=== PATIENT | female | born 1970 | race Caucasian/White ===

== ENCOUNTER 2017-02-03 17:51 | Inpatient (IN) ==
[2017-02-03 19:11] LABS: Eosinophils # 0.1 K/mcL (0.0-0.6); Eosinophils % 6.3 %; Immature Platelets 4.2 % (1.1-6.1); Lymphocytes # 0.4 K/mcL (0.6-4.6); Lymphocytes % 35.1 %; Mean Corpuscular HGB Conc 31.5 g/dL (31.6-35.5); Mean Corpuscular Hemoglobin 38.7 pg (28.0-33.3); Mean Corpuscular Volume 122.6 fL (83.0-100.0); Mean Platelet Volume 10.4 fL (9.4-12.4); Monocytes # 0.2 K/mcL (0.0-1.3); Monocytes % 20.7 %; Neutrophils # 0.4 K/mcL (1.6-8.9); Platelet Count 185 K/mcL (140-400); Red Blood Count 1.06 M/mcL (3.82-4.97); Red Cell Distribution Width 20.7 % (11.5-14.5); Segmented Neutrophils % 37.9 %
[2017-02-03 19:23] LABS: Alanine Aminotransferase 11 Units/L (0-55); Albumin 3.3 g/dL (3.5-5.0); Albumin/Globulin Ratio 1.1 (1.1-2.2); Alkaline Phosphatase 89 Units/L (38-126); Aspartate Amino Transferase 13 Units/L (5-34); BUN/Creatinine Ratio 11 (6-26); Bilirubin,Direct 0.3 mg/dL (0.0-0.5); Bilirubin,Indirect 0.2 mg/dL (0.0-1.2); Bilirubin,Total 0.5 mg/dL (0.2-1.2); Blood Urea Nitrogen 6 mg/dL (7-20); Carbon Dioxide 20 mEq/L (19-29); Chloride 106 mEq/L (98-109); Glucose 115 mg/dL (70-99); Osmolality,Calculated 279 (280-300); Potassium 4.1 mEq/L (3.5-4.5); Sodium 135 mEq/L (136-145); Total Protein 6.3 g/dL (6.0-8.3); eGFR For African Americans > 60 (> 60); eGFR For Non-African Americans > 60 (> 60)
[2017-02-03 19:51] LABS: Hemoglobin 4.1 g/dL (11.5-15.4)
[2017-02-03 20:01] LABS: Lipase 1660 Units/L (8-78)
[2017-02-03 20:07] LABS: Anisocytosis 1+ (Not Present); Hypochromasia Present (Not Present); Platelet Estimate Normal (Normal); Stomatocytes 1+ (Not Present)
[2017-02-03] MEDS ORDERED: *HR* Morphine 2 MG/ML SYRINGE IVP ONE (20:37)
[2017-02-03] MEDS ORDERED: *HR* HYDROmorphone (PF) 1 MG/ML SYRINGE IVP ONE (20:38)
[2017-02-03] MEDS ORDERED: Ondansetron 4 MG/2 ML VIAL IVP ONE (20:39)
[2017-02-03] MEDS ORDERED: 0.9 % Sodium Chloride 1,000 ML IVC ONE ×3 (20:41→21:36)
[2017-02-03] MEDS ORDERED: 0.9 % Sodium Chloride 1,000 ML ONE (20:43)
--- NOTE | 2017-02-03 20:55 | Emergency Department Note ---
Disposition Clinical Impression: Anemia Qualifiers: Anemia type: folate deficiency Folate deficiency anemia type: unspecified folate deficiency Qualified Code(s): D52.9 - Folate deficiency anemia, unspecified Pancreatitis, acute Qualifiers: Pancreatitis type: unspecified pancreatitis type Acute pancreatitis complication: unspecified Qualified Code(s): K85.90 - Acute pancreatitis without necrosis or infection, unspecified Abdominal pain Qualifiers: Abdominal location: generalized Qualified Code(s): R10.84 - Generalized abdominal pain Disposition: Admitted As Inpatient Condition: Fair Time of Disposition: 23:36 Abdominal Pain HPI - General Chief Complaint: ED Abdominal Pain Stated Complaint: ABD Pain,Vomiting Time Seen by Provider: 02/03/17 20:08 Source: patient Nursing Notes Reviewed: Yes Vital Signs Reviewed: Yes - History of Present Illness HPI Narrative: The patient is a 46 y/o patient with no significant medical history who presents with epigastric pain. patient states that her epigastric pain started this past Thursday as a dull pain but yesterday night it became a constant and sharp pain that radiates all over her abdomen and straight to her back. She states that deep inspiration and leaning forward makes the pain worse. She admits nothing makes the pain better. She admits loss of appetite, nausea and 2 episodes of vomiting but denies any fevers. She states that she never had this pain before. She also admits some weakness that has been going on for approximately 2 months. She denies any headaches, vision changes, chest pain, shortness of breath, difficulty breathing, constipation, diarrhea, blood in his stool, blood in her urine, numbness and tingling, or any bleeding. Pain Scale: 10 - Related Data Home Medications Medication Instructions Recorded Confirmed Furosemide [Lasix] 20 mg PO 2XW 02/03/17 02/03/17 Gabapentin [Neurontin] 300 mg PO BID 02/03/17 02/03/17 Ibuprofen [Motrin] 800 mg PO Q8H PRN 02/03/17 02/03/17 Methocarbamol [Robaxin] 750 mg PO Q6-8H 02/03/17 02/03/17 Potassium Chloride 20 meq PO DAILY 02/03/17 02/03/17 Propranolol HCl 40 mg PO TID 02/03/17 02/03/17 Allergies Allergy/AdvReac Type Severity Reaction Status Date / Time celecoxib [From Celebrex] Allergy Hives Verified 10/08/16 13:49 Penicillins Allergy Hives Verified 10/08/16 13:49 Review of Systems: Constitutional: No fever Vision: No blurred vision ENT: No rhinorrhea Respiratory: No cough Allergic: No allergies : No blood in urine GI: Epigastric pain that radiates straight to the back. Admits nausea and vomiting. Denies any hemataemesis, melena, and diarrhea. No blood in stool Hematologic: No bruising Dermatologic: No skin rash Musculoskeletal: No pain in the extremities Neuro: No numbness of the extremities All systems ED: reviewed and negative except as stated. Review of Systems: As Per HPI Abdominal Pain PMH - Past Medical History Medical history: Reports: GERD, other Female Surgical History: Reports: hysterectomy Psychiatric history: Reports: anxiety, depression - Social History Smoking status: Never smoker Alcohol use: Reports: none Drug use: Reports: none Physical Exam CONSTITUTIONAL: Alert and oriented X3,In acute apparent distress. Patient appears very pale. She is tearful. HEAD: Normocephalic; atraumatic. EYES: PERRL, no scleral icterus. NOSE: The nose is normal in appearance without rhinorrhea RESP: Normal chest excursion with respiration; breath sounds clear and equal bilaterally; no wheezes, rhonchi, or rales CARD: Regular rhythm, without murmurs, rub or gallop ABD: Very tender to palpation in all four quadrants of abdomen, especially in the epigastric region. No ecchymosis, bruises, or bleeding. No hepatosplenomegaly. Non-distended;soft,without rigidity, rebound or guarding. Negative Rovsing's sign. Negative McBurney sign. BACK: No CVA tender. Visual inspection of back appears normal. There is no pain with palpation musculature low back. 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 Absent: black stool, bloody stool, mass Course Vital Signs Temperature 98.4 F 02/03/17 18:08 Pulse Rate 103 02/03/17 18:08 Respiratory Rate 18 02/03/17 18:08 Blood Pressure 105/75 02/03/17 18:08 O2 Sat by Pulse Oximetry 100 10/17/17 18:08 Temperature 99.0 F 02/05/17 11:58 Pulse Rate 93 02/05/17 11:58 Respiratory Rate 18 02/05/17 11:58 Blood Pressure 117/76 02/05/17 11:58 O2 Sat by Pulse Oximetry 96 02/05/17 11:58 Oxygen Delivery Oxygen Delivery Room Air Abdominal Pain - MDM Narrative Medical decision making narrative: Vitals are reviewed and are normal. Patient is afebrile. Patient is in acute distress and appears sick. She appears very pale with no color in her lips or face. Abdomen is very tender in all four quadrants. Labs show elevated lipase and Hgb of 4. Patient will be NPO, given 2 L of fluids, and will be transfuse. Will give dilaudid for pain and Zofran for nausea. CT abdomen and pelvic pending to further evaluate patient. Patient will be admitted. - Lab Data Lab results reviewed: Yes I reviewed the patient's lab results. Result diagrams: 02/05/17 05:54 02/05/17 05:54 Lab Results 02/03/17 02/03/17 02/03/17 Range/Units 19:00 19:00 21:12 WBC 1.1 L (4.3-11.1) K/mcL RBC 1.06 L (3.82-4.97) M/mcL Hgb 4.1 L* (11.5-15.4) g/dL Hct 13.0 L* (35.3-44.9) % MCV 122.6 H (83.0-100.0) fL MCH 38.7 H (28.0-33.3) pg MCHC 31.5 L (31.6-35.5) g/dL RDW 20.7 H (11.5-14.5) % Plt Count 185 (140-400) K/mcL MPV 10.4 (9.4-12.4) fL Immature Gran % 0.0 (0-4) % Seg Neutrophils % 37.9 % Lymphocytes % 35.1 % Monocytes % 20.7 % Eosinophils % 6.3 % Basophils % 0.0 % Neutrophils # 0.4 L (1.6-8.9) K/mcL Lymphocytes # 0.4 L (0.6-4.6) K/mcL Monocytes # 0.2 (0.0-1.3) K/mcL Eosinophils # 0.1 (0.0-0.6) K/mcL Basophils # 0.0 (0.0-0.2) K/mcL Nucleated RBCs/100 WBC (0) /100 WBC Platelet Estimate Normal (Normal) Immature Plt Fraction 4.2 (1.1-6.1) % Hypochromasia Present A (Not Present) Anisocytosis 1+ A (Not Present) Macrocytosis (Not Present) Stomatocytes 1+ A (Not Present) Smear Path Review TNP Sodium 135 L (136-145) mEq/L Potassium 4.1 (3.5-4.5) mEq/L Chloride 106 (98-109) mEq/L Carbon Dioxide 20 (19-29) mEq/L BUN 6 L (7-20) mg/dL Creatinine 0.57 (0.57-1.11) mg/dL Est GFR ( Amer) > 60 (> 60) Est GFR (Non-Af Amer) > 60 (> 60) BUN/Creatinine Ratio 11 (6-26) Glucose 115 H (70-99) mg/dL Calculated Osmolality 279 L (280-300) Calcium 9.0 (8.6-10.8) mg/dL Total Bilirubin 0.5 (0.2-1.2) mg/dL Direct Bilirubin 0.3 (0.0-0.5) mg/dL Indirect Bilirubin 0.2 (0.0-1.2) mg/dL AST 13 (5-34) Units/L ALT 11 (0-55) Units/L Alkaline Phosphatase 89 (38-126) Units/L Serum Total Protein 6.3 (6.0-8.3) g/dL Albumin 3.3 L (3.5-5.0) g/dL Globulin 3.0 (2.4-3.5) g/dL Albumin/Globulin Ratio 1.1 (1.1-2.2) Lipase 1660 H (8-78) Units/L Vitamin B12 (213-816) pg/mL Folate (7.0-31.4) ng/mL TSH (0.350-4.840) mcIU/mL Urine Color (Yellow) Urine Clarity (Clear) Urine pH (5.0-8.0) pH Units Ur Specific [place] (1.010-1.025) Urine Protein (Neg-Trace) mg/dL Urine Glucose (UA) (Normal) mg/dL Urine Ketones (Negative) mg/dL Urine Blood (Negative) Urine Nitrite (Negative) Urine Bilirubin (Negative) Urine Urobilinogen (Normal) mg/dL Ur Leukocyte Esterase (Negative) Urine Microscopic RBC (0-3) per hpf Urine Microscopic WBC (0-3) per hpf Ur Squamous Epith Cells (None-Few) per lpf Urine Bacteria (None-Few) per hpf Hyaline Casts Ur Culture Indicated? (NO) Stool Occult Blood Negative (Negative) Blood Type Antibody Screen Crossmatch 02/03/17 02/03/17 02/03/17 Range/Units 21:29 22:23 22:28 WBC (4.3-11.1) K/mcL RBC (3.82-4.97) M/mcL Hgb (11.5-15.4) g/dL Hct (35.3-44.9) % MCV (83.0-100.0) fL MCH (28.0-33.3) pg MCHC (31.6-35.5) g/dL RDW (11.5-14.5) % Plt Count (140-400) K/mcL MPV (9.4-12.4) fL Immature Gran % (0-4) % Seg Neutrophils % % Lymphocytes % % Monocytes % % Eosinophils % % Basophils % % Neutrophils # (1.6-8.9) K/mcL Lymphocytes # (0.6-4.6) K/mcL Monocytes # (0.0-1.3) K/mcL Eosinophils # (0.0-0.6) K/mcL Basophils # (0.0-0.2) K/mcL Nucleated RBCs/100 WBC (0) /100 WBC Platelet Estimate (Normal) Immature Plt Fraction (1.1-6.1) % Hypochromasia (Not Present) Anisocytosis (Not Present) Macrocytosis (Not Present) Stomatocytes (Not Present) Smear Path Review Sodium (136-145) mEq/L Potassium (3.5-4.5) mEq/L Chloride (98-109) mEq/L Carbon Dioxide (19-29) mEq/L BUN (7-20) mg/dL Creatinine (0.57-1.11) mg/dL Est GFR ( Amer) (> 60) Est GFR (Non-Af Amer) (> 60) BUN/Creatinine Ratio (6-26) Glucose (70-99) mg/dL Calculated Osmolality (280-300) Calcium (8.6-10.8) mg/dL Total Bilirubin (0.2-1.2) mg/dL Direct Bilirubin (0.0-0.5) mg/dL Indirect Bilirubin (0.0-1.2) mg/dL AST (5-34) Units/L ALT (0-55) Units/L Alkaline Phosphatase (38-126) Units/L Serum Total Protein (6.0-8.3) g/dL Albumin (3.5-5.0) g/dL Globulin (2.4-3.5) g/dL Albumin/Globulin Ratio (1.1-2.2) Lipase (8-78) Units/L Vitamin B12 468 (213-816) pg/mL Folate 6.3 L (7.0-31.4) ng/mL TSH (0.350-4.840) mcIU/mL Urine Color Dark Yellow (Yellow) Urine Clarity Cloudy A (Clear) Urine pH 6.5 (5.0-8.0) pH Units Ur Specific [place] 1.021 (1.010-1.025) Urine Protein 100 H (Neg-Trace) mg/dL Urine Glucose (UA) Normal (Normal) mg/dL Urine Ketones Trace H (Negative) mg/dL Urine Blood Negative (Negative) Urine Nitrite Negative (Negative) Urine Bilirubin Small H (Negative) Urine Urobilinogen Normal (Normal) mg/dL Ur Leukocyte Esterase Trace H (Negative) Urine Microscopic RBC 0-3 (0-3) per hpf Urine Microscopic WBC 0-3 (0-3) per hpf Ur Squamous Epith Cells Few (None-Few) per lpf Urine Bacteria Few (None-Few) per hpf Hyaline Casts Test Not Performed Ur Culture Indicated? YES A (NO) Stool Occult Blood (Negative) Blood Type A NEGATIVE Antibody Screen NEGATIVE Crossmatch See Detail 02/03/17 02/04/17 Range/Units 22:28 00:25 WBC 1.3 L (4.3-11.1) K/mcL RBC 1.07 L (3.82-4.97) M/mcL Hgb 4.1 L* (11.5-15.4) g/dL Hct 12.7 L* (35.3-44.9) % MCV 118.7 H (83.0-100.0) fL MCH 38.3 H (28.0-33.3) pg MCHC 32.3 (31.6-35.5) g/dL RDW 22.5 H (11.5-14.5) % Plt Count 130 L (140-400) K/mcL MPV 10.0 (9.4-12.4) fL Immature Gran % 0.0 (0-4) % Seg Neutrophils % 29.7 % Lymphocytes % 40.6 % Monocytes % 25.0 % Eosinophils % 4.7 % Basophils % 0.0 % Neutrophils # 0.4 L (1.6-8.9) K/mcL Lymphocytes # 0.5 L (0.6-4.6) K/mcL Monocytes # 0.3 (0.0-1.3) K/mcL Eosinophils # 0.1 (0.0-0.6) K/mcL Basophils # 0.0 (0.0-0.2) K/mcL Nucleated RBCs/100 WBC 1.6 H (0) /100 WBC Platelet Estimate (Normal) Immature Plt Fraction (1.1-6.1) % Hypochromasia Present A (Not Present) Anisocytosis 2+ A (Not Present) Macrocytosis Present A (Not Present) Stomatocytes (Not Present) Smear Path Review Sodium (136-145) mEq/L Potassium (3.5-4.5) mEq/L Chloride (98-109) mEq/L Carbon Dioxide (19-29) mEq/L BUN (7-20) mg/dL Creatinine (0.57-1.11) mg/dL Est GFR ( Amer) (> 60) Est GFR (Non-Af Amer) (> 60) BUN/Creatinine Ratio (6-26) Glucose (70-99) mg/dL Calculated Osmolality (280-300) Calcium (8.6-10.8) mg/dL Total Bilirubin (0.2-1.2) mg/dL Direct Bilirubin (0.0-0.5) mg/dL Indirect Bilirubin (0.0-1.2) mg/dL AST (5-34) Units/L ALT (0-55) Units/L Alkaline Phosphatase (38-126) Units/L Serum Total Protein (6.0-8.3) g/dL Albumin (3.5-5.0) g/dL Globulin (2.4-3.5) g/dL Albumin/Globulin Ratio (1.1-2.2) Lipase (8-78) Units/L Vitamin B12 (213-816) pg/mL Folate (7.0-31.4) ng/mL TSH 6.648 H (0.350-4.840) mcIU/mL Urine Color (Yellow) Urine Clarity (Clear) Urine pH (5.0-8.0) pH Units Ur Specific [place] (1.010-1.025) Urine Protein (Neg-Trace) mg/dL Urine Glucose (UA) (Normal) mg/dL Urine Ketones (Negative) mg/dL Urine Blood (Negative) Urine Nitrite (Negative) Urine Bilirubin (Negative) Urine Urobilinogen (Normal) mg/dL Ur Leukocyte Esterase (Negative) Urine Microscopic RBC (0-3) per hpf Urine Microscopic WBC (0-3) per hpf Ur Squamous Epith Cells (None-Few) per lpf Urine Bacteria (None-Few) per hpf Hyaline Casts Ur Culture Indicated? (NO) Stool Occult Blood (Negative) Blood Type Antibody Screen Crossmatch Attestation Statement - Attestation Attestation: I examined this patient and my medical decision-making was reviewed with the Resident Physician. I agree with the documented findings, disposition and treatment plan as described except to the extent set forth below. Diabetic patient with pancreatitis and leukopenia along with severe anemia, hemoglobin was normal in April. No active symptoms of bleeding. Vital signs normal. Treated symptomatically in the emergency department, fluids and blood ordered. CT scan ordered with IV contrast to rule out complications of acute pancreatitis, pending at the end of my shift. I discussed the case with the admitting hospitalist, who accepted the patient for admission. I checked the patient out to Dr. Dwyer by the change of shift, with a plan for her to follow- up on the CT results and notify the hospitalist of any abnormality.
[2017-02-03] MEDS ORDERED: Ondansetron 4 MG/2 ML VIAL ONE (20:59)
[2017-02-03] MEDS: *HR* HYDROmorphone (PF) 1 MG/ML SYRINGE IVP PRN (22:08)
[2017-02-03 22:41] LABS: Bilirubin,Urine Small (Negative); Blood,Urine Negative (Negative); Clarity,Urine Cloudy (Clear); Color,Urine Dark Yellow (Yellow); Glucose,Urine (UA) Normal (Normal); Ketones,Urine Trace mg/dL (Negative); Leukocyte Esterase,Urine Trace (Negative); Nitrite,Urine Negative (Negative); PH,Urine 6.5 pH Units (5.0-8.0); Protein,Urine 100 mg/dL (Neg-Trace); Specific Gravity,Urine 1.021 (1.010-1.025); Urobilinogen,Urine Normal (Normal)
[2017-02-03 23:14] LABS: Bacteria,Urine Few per hpf (None-Few); RBC,Urine 0-3 per hpf (0-3); Squamous Epithelial Cell,Urine Few per lpf (None-Few); WBC,Urine 0-3 per hpf (0-3)
[2017-02-03 23:25] LABS: Folate 6.3 ng/mL (7.0-31.4)
[2017-02-04] MEDS: *HR* HYDROmorphone (PF) 1 MG/ML SYRINGE IVP PRN ×6 (00:14→22:15)
[2017-02-04 00:34] LABS: Eosinophils # 0.1 K/mcL (0.0-0.6); Eosinophils % 4.7 %; Lymphocytes # 0.5 K/mcL (0.6-4.6); Lymphocytes % 40.6 %; Mean Corpuscular HGB Conc 32.3 g/dL (31.6-35.5); Mean Corpuscular Hemoglobin 38.3 pg (28.0-33.3); Mean Corpuscular Volume 118.7 fL (83.0-100.0); Monocytes # 0.3 K/mcL (0.0-1.3); Neutrophils # 0.4 K/mcL (1.6-8.9); Nucleated Red Blood Cells 1.6 /100 WBC (0); Platelet Count 130 K/mcL (140-400); Red Blood Count 1.07 M/mcL (3.82-4.97); Red Cell Distribution Width 22.5 % (11.5-14.5); Segmented Neutrophils % 29.7 %
[2017-02-04 00:39] LABS: Hematocrit 12.7 % (35.3-44.9); Hemoglobin 4.1 g/dL (11.5-15.4)
[2017-02-04] MEDS ORDERED: Acetaminophen 325 MG TABLET PO PRN (00:47)
[2017-02-04] MEDS ORDERED: Naloxone 0.4 MG/ML INJ IVP PRN (00:47)
[2017-02-04] MEDS ORDERED: *HR* HYDROmorphone (PF) 1 MG/ML SYRINGE IVP PRN (00:47)
[2017-02-04] MEDS ORDERED: 0.9 % Sodium Chloride 1,000 ML IVC ONE (00:52)
[2017-02-04 00:54] LABS: Anisocytosis 2+ (Not Present); Hypochromasia Present (Not Present); Macrocytosis Present (Not Present)
--- NOTE | 2017-02-04 01:46 | Internal Med History&Physical ---
Date of Encounter: 02/04/17 Time of Encounter: 00:15 Assessment and Plan (1) DVT prophylaxis Current visit: Yes Status: Acute EPCD, no anticoagulation because of low hemoglobin and thrombocytopenia. (2) Anemia Current visit: Yes Status: Acute Etiology is undetermined. MCV 122. Lab shows patient also has leukocytopenia and mild thrombocytopenia. - Hemoglobin 4.1. Will give transfusion PRBC for 2 units. - Vitamin B12 and folic acid test has been done. Mild folic acid deficiency. Vitamin B-12 is within normal limits. - We will closely follow H&H. Non urgent Hematology consult in a.m. by day shift. Qualifiers: Anemia type: folate deficiency Folate deficiency anemia type: unspecified folate deficiency Qualified Code(s): D52.9 - Folate deficiency anemia, unspecified (3) Pancreatitis, acute Current visit: Yes Status: Acute Patient has elevated lipase, abdominal pain, nausea and vomiting, CT abdominal shows possible pancreatitis. - We will place patient on nothing by mouth, IV fluid, pain medication. - Trend lipase. - Abdominal ultrasound to rule out gallstone. - Lipid panel to rule out hypertriglyceridemia. Qualifiers: Pancreatitis type: unspecified pancreatitis type Acute pancreatitis complication: unspecified Qualified Code(s): K85.90 - Acute pancreatitis without necrosis or infection, unspecified Internal Medicine - H&P: HPI Chief complaint: Abdominal pain Admitted From: Home Plans for Post Hospital Care: Home History of present illness: Ms. Paul is a 46 year old female with no significant medical history presented to ER for abdominal pain. Patient said pain started from Thursday, located on the epigastric area, sharp, 10/10, radiating to back. Patient also has nausea and vomiting, vomited 2-3 times today, vomited stomach content, no blood in it. Patient denies diarrhea. She denies fever, chest pain, or shortness of breath. In emergency room, she was found elevated lipase, and severe leukocytopenia and anemia. Patient denies black stool. Guaiac test negative ER. Past Med Surg Social Fam HX - Past Medical History Medical history: GERD, other Psychiatric history: anxiety, depression - Past Surgical History Surgical History: orthopedic, other (right hand ORIF; Right hip pain; Lumbar pain; x of right hip fracture; labral tear of hip joint; numbness in right leg) , JERALD/BSO (2005), other (T&A 1982) - Social History Smoking Status: Never smoker Smokeless Tobacco Status: No Alcohol use: none Drug use: none - Family History Father Hx Family Cardiac Disorders: Yes Hx Family Cancer: Yes (Breast cancer) Internal Medicine - H&P: Meds Furosemide [Lasix] 20 mg PO 2XW 02/03/17 [History] Gabapentin [Neurontin] 300 mg PO BID 02/03/17 [History] Ibuprofen [Motrin] 800 mg PO Q8H PRN 02/03/17 [History] Methocarbamol [Robaxin] 750 mg PO Q6-8H 02/03/17 [History] Potassium Chloride 20 meq PO DAILY 02/03/17 [History] Propranolol HCl 40 mg PO TID 02/03/17 [History] 3 Allergy/AdvReac Type Severity Reaction Status Date / Time celecoxib [From Celebrex] Allergy Hives Verified 10/08/16 13:49 Penicillins Allergy Hives Verified 10/08/16 13:49 All Systems PM: A 10-system review of systems was performed and is negative for pertinent findings except as documented above in the HPI. - Constitutional Vitals: Temp Pulse Resp BP Pulse Ox 98.2 F 80 18 128/86 94 02/04/17 00:57 02/04/17 00:57 02/04/17 00:57 02/04/17 00:57 02/04/17 00:57 General appearance: Present: mild distress, A&O X 3, answers questions appropriately - Head Head exam: Present: atraumatic, normocephalic - Eye Eye exam: Present: PERRL, conjuntiva pink, sclera anicteric Pupils: Present: PERRL - Neck Neck exam general surgery: Present: supple, trachea midline. Absent: lymphadenopathy - Respiratory Respiratory exam: Present: CTAB. Absent: accessory muscle use, rales, rhonchi, wheezes - Cardiovascular Cardiovascular exam: Present: RRR, +S1, +S2. Absent: diastolic murmur, gallop, rubs, systolic murmur - GI/Abdominal GI/Abdominal exam: Present: normal bowel sounds, soft, tenderness (Tenderness in 4 Q, with guarding), no peritoneal signs. Absent: distended - Extremities Exam Extremities exam: Present: warm, radial pulses palpable and symmetrical. Absent : calf tenderness, cyanotic, pedal edema - Neurological Exam Neurological exam: Present: CN II-XII intact, oriented X3, no focal deficits. Absent: pronater drift, facial droop, speech deficit - Skin Skin exam: Present: dry, intact Internal Med - H&P Results - Labs CBC & Chem 7: 02/04/17 00:25 02/03/17 19:00
[2017-02-04] MEDS: *HR* Morphine 2 MG/ML SYRINGE IVP PRN ×2 (02:04→08:51)
[2017-02-04] MEDS ORDERED: 0.9 % Sodium Chloride 250 ML ONE ×3 (02:35→13:44)
[2017-02-04] MEDS: Ondansetron 4 MG/2 ML VIAL IVP PRN ×4 (03:25→22:16)
[2017-02-04 07:10] LABS: Basophils % 0.7 %; Immature Granulocytes % 0.7 % (0-4); Mean Platelet Volume 10.5 fL (9.4-12.4); Red Blood Count 1.62 M/mcL (3.82-4.97)
[2017-02-04 07:12] LABS: Eosinophils # 0.1 K/mcL (0.0-0.6); Eosinophils % 8.2 %; Hematocrit 16.8 % (35.3-44.9); Lymphocytes # 0.6 K/mcL (0.6-4.6); Lymphocytes % 38.1 %; Mean Corpuscular HGB Conc 32.7 g/dL (31.6-35.5); Mean Corpuscular Volume 103.7 fL (83.0-100.0); Monocytes # 0.3 K/mcL (0.0-1.3); Monocytes % 21.8 %; Neutrophils # 0.5 K/mcL (1.6-8.9); Platelet Count 129 K/mcL (140-400); Retculocyte # 0.05 M/mcL (0.05-0.10); Reticulocyte % 2.8 % (1.6-2.8); Segmented Neutrophils % 30.5 %
[2017-02-04 07:26] LABS: Hemoglobin 5.5 g/dL (11.5-15.4)
[2017-02-04 07:27] LABS: BUN/Creatinine Ratio 10 (6-26); Calcium 7.8 mg/dL (8.6-10.8); Carbon Dioxide 20 mEq/L (19-29); Chloride 110 mEq/L (98-109); Chol/HDL Ratio 3.3 (0-4.9); Glucose 88 mg/dL (70-99); HDL Cholesterol 23 mg/dL (40-59); LDL Cholesterol,Calculated 40 mg/dL (0-99); Lipase 1051 Units/L (8-78); Magnesium 1.4 mg/dL (1.6-2.6); Osmolality,Calculated 281 (280-300); Phosphorous 3.3 mg/dL (2.3-4.7); Potassium 3.2 mEq/L (3.5-4.5); Sodium 137 mEq/L (136-145); Triglycerides 58 mg/dL (< 150); eGFR For African Americans > 60 (> 60); eGFR For Non-African Americans > 60 (> 60)
[2017-02-04 07:28] LABS: Blood Urea Nitrogen 5 mg/dL (7-20); Cholesterol 75 mg/dL (< 200)
[2017-02-04 07:50] LABS: Macrocytosis Present (Not Present); Platelet Estimate Slight Decrease (Normal)
[2017-02-04 07:51] LABS: Anisocytosis 2+ (Not Present)
[2017-02-04 07:52] LABS: Hypochromasia Present (Not Present)
[2017-02-04 08:26] LABS: INR 1.1; Prothrombin Time 11.4 Seconds (9.4-12.1)
[2017-02-04] MEDS: Pantoprazole 40 MG VIAL IVP SCH (08:51)
[2017-02-04] MEDS: 0.9 % Sodium Chloride 1,000 ML IVC SCH ×3 (11:31→22:11)
[2017-02-04] MEDS ORDERED: Magnesium Sulfate 2 GM in D5% in Water 100 ML IVPB ONE (11:33)
[2017-02-04 11:41] LABS: % Iron Saturation 82 % (15-50); Iron 292 mcg/dL (50-170); Transferrin 253 mg/dL (180-382)
[2017-02-04 12:13] LABS: Ferritin 476 ng/ml (5-204)
--- NOTE | 2017-02-04 12:19 | Gastroenterology Consult Note ---
<TapiaCristofer Robert - Last Filed: 02/04/17 12:28> Date of Encounter: 02/04/17 Time of Encounter: 10:30 - Assessment and plan (1) Anemia Current Visit: Yes Status: Acute Assessment and plan: Hgb 4.1 on admission and 5.5 this AM after 2 units PRBC. Continue to monitor CBC and transfuse PRBC as needed. Keep NPO. Plan for EGD today to r/o esophagitis, gastritis, duodenitis, PUD, MW tear, or AVM. If EGD negative will plan for colonoscopy tomorrow. Qualifiers: Anemia type: folate deficiency Folate deficiency anemia type: unspecified folate deficiency Qualified Code(s): D52.9 - Folate deficiency anemia, unspecified (2) Pancreatitis, acute Current Visit: Yes Status: Acute Assessment and plan: Lipase 1660 on admission and 1051 today. Start 0.9 NS at 200 ml/hr. Keep NPO today and then slowly advance diet as tolerated. Continue antiemetics and pain control. Qualifiers: Pancreatitis type: unspecified pancreatitis type Acute pancreatitis complication: unspecified Qualified Code(s): K85.90 - Acute pancreatitis without necrosis or infection, unspecified (3) Abdominal pain Current Visit: Yes Status: Acute Assessment and plan: Secondary to pancreatitis. Qualifiers: Abdominal location: generalized Qualified Code(s): R10.84 - Generalized abdominal pain - Time Spent With Patient Total time spent is greater than 50% in coordination of care (as documented) at patient's floor/unit and/or counseling patient: GI History of Present Illness - Data of Consult Patient: new to practice Consult date: 02/04/17 Requesting Physician: Joseluis Potter MD - Consult Narrative Reason for consult: anemia History of present illness: Ms. Paul is a 46 year old female with PMHx of GERD who presented to the ED with abdominal pain that started on Thursday. She reports epigastric pain that radiates to her back. She also complains of nausea and vomiting, no hematemesis. She denies fever, chest pain, shortness of breath, diarrhea, melena , or hematochezia. In the ED, lipase was elevated to 1660, WBC 1.1, and Hgb 4.1. This AM, Hgb 5.5 after 2 units PRBC and lipase 1051. CT A/P with wall thickening with submucosal edema of horizontal portion of duodenem with significant surrounding inflammatory changes, small foci of gas in RUQ likely colonic diverticula, and submucosal fat along entire colonic wall which can be seen in chronic IBD. Procedures: None NSAIDs: Motrin Anticoagulation: None Past Med Surg Social Fam HX - Past Medical History Medical history: GERD, other Psychiatric history: anxiety, depression - Past Surgical History Surgical History: orthopedic, other (right hand ORIF; Right hip pain; Lumbar pain; x of right hip fracture; labral tear of hip joint; numbness in right leg) , JERALD/BSO (2005), other (T&A 1982) - Social History Smoking Status: Never smoker Smokeless Tobacco Status: No Alcohol use: none Drug use: none - Family History Father Hx Family Cardiac Disorders: Yes Hx Family Cancer: Yes (Breast cancer) - Gastrointestinal Gastrointestinal: Present: as per HPI - Constitutional Constitutional: as per HPI - EENT Eyes: as per HPI Ears: Present: as per HPI Nose, mouth and throat: Present: as per HPI - Cardiovascular Cardiovascular ROS: Present: as per HPI - Respiratory Respiratory IM: Present: as per HPI - Genitourinary Genitourinary: Absent: change in color, Urinary frequency - Neurological ROS Neurological GI: Present: as per HPI - Hematologic/Lymphatic Hematologic/Lymphatic pediatric: Present: as per HPI - Musculoskeletal Musculoskeletal ROS GI: Present: as per HPI - Integumentary Integumentary GI: Present: as per HPI - Psychiatric ROS Psychiatric GI: Present: as per HPI - Endocrine Endocrine IM: Present: as per HPI - Constitutional Vitals: Temp Pulse Resp BP Pulse Ox 98.2 F 77 17 116/71 96 02/04/17 11:29 02/04/17 11:29 02/04/17 11:29 02/04/17 11:29 02/04/17 11:29 General appearance: Present: cooperative, A&O X 3, no acute distress, answers questions appropriately - Head Head exam: Present: atraumatic, normocephalic - Eye Eye exam: Present: normal appearance, sclera anicteric - ENT ENT exam: Present: mucous membranes dry - Neck Neck exam general surgery: Present: normal inspection, trachea midline - Respiratory Respiratory exam: Present: CTAB. Absent: rales, rhonchi - Cardiovascular Cardiovascular exam: Present: RRR, +S1, +S2 - GI/Abdominal GI/Abdominal exam: Present: soft, tenderness (generalized), no peritoneal signs. Absent: distended, firm, guarding - Rectal Rectal exam: Present: deferred - Extremities Exam Extremities exam: Present: warm - Neurological Exam Neurological exam: Present: no focal deficits - Psychiatric Psychiatric exam: Present: normal affect, normal mood - Skin Skin exam: Present: dry, intact, normal color, warm Results - Labs CBC & Chem 7: 02/04/17 06:21 02/04/17 06:21 Labs: Last Result Calcium 7.8 mg/dL (8.6-10.8) L 02/04/17 06:21 Iron 292 mcg/dL (50-170) H 02/04/17 07:57 % Saturation 82 % (15-50) H 02/04/17 07:57 Transferrin 253 mg/dL (180-382) 02/04/17 07:57 Ferritin 476 ng/ml (5-204) H 02/04/17 07:57 Triglycerides 58 mg/dL (< 150) 02/04/17 06:21 Vitamin B12 468 pg/mL (213-816) 02/03/17 22:28 Folate 6.3 ng/mL (7.0-31.4) L 02/03/17 22:28 Stool Occult Blood Negative (Negative) 02/03/17 21:12 Entire Visit Hgb 5.5 g/dL (11.5-15.4) L* 02/04/17 06:21 Hct 16.8 % (35.3-44.9) L 02/04/17 06:21 PT 11.4 Seconds (9.4-12.1) 02/04/17 07:57 Ferritin 476 ng/ml (5-204) H 02/04/17 07:57 Total Bilirubin 0.5 mg/dL (0.2-1.2) 02/03/17 19:00 AST 13 Units/L (5-34) 02/03/17 19:00 ALT 11 Units/L (0-55) 02/03/17 19:00 Lipase 1051 Units/L (8-78) H 02/04/17 06:21 Folate 6.3 ng/mL (7.0-31.4) L 02/03/17 22:28 - ABG ABG results: PT/INR, D-dimer PT 11.4 Seconds (9.4-12.1) 02/04/17 07:57 - Impressions Impressions Abdomen Ultrasound 02/04/17 08:30 IMPRESSION: 1. There is intra and extrahepatic biliary ductal dilatation that appears to have increased since the previous study. This may be related to the inflammatory changes noted along the 2nd and 3rd portion of the duodenum and obstruction of the common bile duct. MRCP or ERCP may be of benefit for further evaluation. 2. Gallstones. No adjacent inflammatory changes. 3. Prominence of the pancreatic duct, increased in size. This could also be related to obstruction from the inflammatory changes in the duodenum. D/ / 02/04/2017 10:22:36 Jr Ceja MD / [facility] Interpreting Provider: Jr Ceja MD Consult Discharge Plan - Plan Referrals: Danii Berg MD [Primary Care Provider] - <Renee Velez - Last Filed: 02/04/17 17:26> Date of Encounter: 02/04/17 Time of Encounter: 17:20 - Time Spent With Patient Total time spent is greater than 50% in coordination of care (as documented) at patient's floor/unit and/or counseling patient: GI History of Present Illness - Data of Consult Requesting Physician: Joseluis Potter MD - Consult Narrative History of present illness: Ms. Paul is a 46 year old female - Constitutional Vitals: Temp Pulse Resp BP Pulse Ox 98.2 F 91 16 140/81 95 02/04/17 16:54 02/04/17 17:17 02/04/17 17:17 02/04/17 17:17 02/04/17 17:17 Results - Labs CBC & Chem 7: 02/04/17 06:21 02/04/17 06:21 Labs: Last Result Calcium 7.8 mg/dL (8.6-10.8) L 02/04/17 06:21 Iron 292 mcg/dL (50-170) H 02/04/17 07:57 % Saturation 82 % (15-50) H 02/04/17 07:57 Transferrin 253 mg/dL (180-382) 02/04/17 07:57 Ferritin 476 ng/ml (5-204) H 02/04/17 07:57 Triglycerides 58 mg/dL (< 150) 02/04/17 06:21 Vitamin B12 468 pg/mL (213-816) 02/03/17 22:28 Folate 6.3 ng/mL (7.0-31.4) L 02/03/17 22:28 Stool Occult Blood Negative (Negative) 02/03/17 21:12 Entire Visit Hgb 5.5 g/dL (11.5-15.4) L* 02/04/17 06:21 Hct 16.8 % (35.3-44.9) L 02/04/17 06:21 PT 11.4 Seconds (9.4-12.1) 02/04/17 07:57 Ferritin 476 ng/ml (5-204) H 02/04/17 07:57 Total Bilirubin 0.5 mg/dL (0.2-1.2) 02/03/17 19:00 AST 13 Units/L (5-34) 02/03/17 19:00 ALT 11 Units/L (0-55) 02/03/17 19:00 Lipase 1051 Units/L (8-78) H 02/04/17 06:21 Folate 6.3 ng/mL (7.0-31.4) L 02/03/17 22:28 - ABG ABG results: PT/INR, D-dimer PT 11.4 Seconds (9.4-12.1) 02/04/17 07:57 - Impressions Impressions Abdomen Ultrasound 02/04/17 08:30 IMPRESSION: 1. There is intra and extrahepatic biliary ductal dilatation that appears to have increased since the previous study. This may be related to the inflammatory changes noted along the 2nd and 3rd portion of the duodenum and obstruction of the common bile duct. MRCP or ERCP may be of benefit for further evaluation. 2. Gallstones. No adjacent inflammatory changes. 3. Prominence of the pancreatic duct, increased in size. This could also be related to obstruction from the inflammatory changes in the duodenum. D/ / 02/04/2017 10:22:36 Jr Ceja MD / [facility] Interpreting Provider: Jr Ceja MD - Attending Attestation I examined this patient and my medical decision-making was reviewed with the Resident Physician. I agree with the documented findings, disposition and treatment plan as described except to the extent set forth below.
[2017-02-04 12:22] LABS: Hepatitis A Antibody IgM Nonreactive (Nonreactive); Hepatitis B Core IgM Nonreactive (Nonreactive); Hepatitis B Surface Antigen Nonreactive (Nonreactive); Hepatitis C Virus Antibody Nonreactive (Nonreactive)
--- NOTE | 2017-02-04 13:53 | Anesthesia Evaluation PreOp ---
Date of Encounter: 02/04/17 Time of Encounter: 13:51 - Past History Planned Operation: EGD Cardiac History: Other (Anemia) [employer]TE[employer]CE [employer]ERK History: Other (Anxiety/Depression) Other Medical History: GERD, Other (acute pancreatitis) Anesthesia History: Past Anesthesia (JERALD-BSO, T&A, ORIF Right hand, hip Sx) : No ([facility]) Alcohol Use: none Drug use: none Medications and Allergies Furosemide [Lasix] 20 mg PO 2XW 02/03/17 [History] Gabapentin [Neurontin] 300 mg PO BID 02/03/17 [History] Ibuprofen [Motrin] 800 mg PO Q8H PRN 02/03/17 [History] Methocarbamol [Robaxin] 750 mg PO Q6-8H 02/03/17 [History] Potassium Chloride 20 meq PO DAILY 02/03/17 [History] Propranolol HCl 40 mg PO TID 02/03/17 [History] 3 Allergy/AdvReac Type Severity Reaction Status Date / Time celecoxib [From Celebrex] Allergy Hives Verified 10/08/16 13:49 Penicillins Allergy Hives Verified 10/08/16 13:49 - Meds/Allergy Pre-op Review Medications Reviewed: Yes Allergies Reviewed: Yes Beta Blockers on Current Med List: No Anesthesia Results - Labs 02/04/17 06:21 02/04/17 06:21 Transfused 3 Units PRBC, 1 more ordered Anesthesia Exam O2 Sat Height 1.65 m Height 1.65 m Weight 63.1 kg Weight 63.503 kg O2 Sat by Pulse Oximetry 95 O2 Sat by Pulse Oximetry 96 O2 Sat by Pulse Oximetry 99 O2 Sat by Pulse Oximetry 100 O2 Sat by Pulse Oximetry 96 O2 Sat by Pulse Oximetry 95 O2 Sat by Pulse Oximetry 98 O2 Sat by Pulse Oximetry 98 O2 Sat by Pulse Oximetry 95 O2 Sat by Pulse Oximetry 95 O2 Sat by Pulse Oximetry 97 O2 Sat by Pulse Oximetry 94 O2 Sat by Pulse Oximetry 100 O2 Sat by Pulse Oximetry 98 O2 Sat by Pulse Oximetry 98 O2 Sat by Pulse Oximetry 100 Vital Signs Temp Pulse Resp BP Pulse Ox 98.4 F 103 18 105/75 100 02/03/17 18:08 02/03/17 18:08 02/03/17 18:08 02/03/17 18:08 02/03/17 18:08 Vital Signs/O2 Sat, Most Current Temp Pulse Resp BP Pulse Ox 98.1 F 86 16 120/76 95 02/04/17 13:40 02/04/17 13:40 02/04/17 13:40 02/04/17 13:40 02/04/17 13:40 Height: 5'5'' Weight: 139# NPO (# of Hours): > 8 hrs Pain Scale: 0 Pain Scale Used: Numeric (1 - 10) - [employer]TE[employer]CE CLERK LOC: Oriented [employer] MAINTENANCE CLERK Motor: Normal RUE, Normal LUE, Normal RLE, Normal LLE, Normal Face [employer] MAINTENANCE [employer]ERK Sensory: Normal: RUE, LUE, RLE, LLE, Face - Cardiac Rhythm: Regular Murmur: None JVD: No Carotid Bruit: No - Pulmonary Breath Sounds: bilateral Clear Respiratory Effort: Symmetrical Anesthesia Assess/Plan Modified [place] Scale for Level of Consciousness: Cooperative, oriented, and tranquil Anesthetic Plan: MAC Autologous Blood: Yes Monitoring Plan: Standard Monitors Recovery Plan: Other
--- NOTE | 2017-02-04 16:09 | Event Note ---
Date of Encounter: 02/04/17 Time of Encounter: 10:15 Patient having severe abdominal pain radiating to her right side and back. It improves with pain medications but relief only lasts for about 15 minutes. Denies any nausea or vomiting. Currently nothing by mouth and feels very hungry and thirsty. Hemoglobin 5.5 this morning. Transfuse 2 more units of packed red blood cells. We will also transfuse platelets. Gastroenterology has been consulted. Plan for upper GI endoscopy later today. Ultrasound of the abdomen has been done. Follow results.
[2017-02-04] MEDS ORDERED: *HR* FentaNYL (PF) 100 MCG/2 ML VIAL ONE (17:04)
[2017-02-04] MEDS ORDERED: *HR* Midazolam HCl 5 MG/5 ML VIAL IVP ONE (17:04)
[2017-02-04] MEDS: *HR* FentaNYL (PF) 100 MCG/2 ML VIAL IVP PRN ×2 (17:20→17:23)
[2017-02-04] MEDS ORDERED: *HR* Midazolam HCl 5 MG/5 ML VIAL IVP PRN (17:25)
[2017-02-04] MEDS ORDERED: Simethicone 40 MG/0.6 ML MLS IR ONE (17:25)
[2017-02-04] MEDS ORDERED: Folic Acid 1 MG in D5% in Water 50 ML IVPB ONE (17:34)
[2017-02-04] MEDS ORDERED: 0.9 % Sodium Chloride 500 ML ONE (21:23)
[2017-02-05] MEDS: *HR* HYDROmorphone (PF) 1 MG/ML SYRINGE IVP PRN ×3 (03:08→08:12)
[2017-02-05] MEDS: 0.9 % Sodium Chloride 1,000 ML IVC SCH (05:37)
[2017-02-05 06:11] LABS: Basophils % 1.3 %; Eosinophils # 0.1 K/mcL (0.0-0.6); Eosinophils % 8.1 %; Hemoglobin 8.2 g/dL (11.5-15.4); Lymphocytes # 0.5 K/mcL (0.6-4.6); Lymphocytes % 32.2 %; Mean Corpuscular HGB Conc 34.2 g/dL (31.6-35.5); Mean Corpuscular Hemoglobin 32.2 pg (28.0-33.3); Mean Corpuscular Volume 94.1 fL (83.0-100.0); Mean Platelet Volume 10.3 fL (9.4-12.4); Monocytes # 0.3 K/mcL (0.0-1.3); Monocytes % 18.8 %; Neutrophils # 0.6 K/mcL (1.6-8.9); Platelet Count 142 K/mcL (140-400); Red Blood Count 2.55 M/mcL (3.82-4.97); Red Cell Distribution Width 24.3 % (11.5-14.5); Segmented Neutrophils % 39.6 %
[2017-02-05 06:24] LABS: BUN/Creatinine Ratio 7 (6-26); Carbon Dioxide 19 mEq/L (19-29); Chloride 108 mEq/L (98-109); Glucose 85 mg/dL (70-99); Potassium 3.2 mEq/L (3.5-4.5); Sodium 135 mEq/L (136-145); eGFR For African Americans > 60 (> 60); eGFR For Non-African Americans > 60 (> 60)
[2017-02-05 06:25] LABS: Lipase 89 Units/L (8-78); Osmolality,Calculated 276 (280-300)
[2017-02-05 06:31] LABS: Blood Urea Nitrogen 3 mg/dL (7-20)
[2017-02-05 06:40] LABS: Anisocytosis 3+ (Not Present); Macrocytosis Present (Not Present); Microcytosis Present (Not Present); Platelet Estimate Normal (Normal)
[2017-02-05 08:03] LABS: Alanine Aminotransferase 15 Units/L (0-55); Albumin 2.7 g/dL (3.5-5.0); Alkaline Phosphatase 72 Units/L (38-126); Aspartate Amino Transferase 30 Units/L (5-34); Bilirubin,Direct 0.7 mg/dL (0.0-0.5); Bilirubin,Indirect 0.8 mg/dL (0.0-1.2); Globulin 2.8 g/dL (2.4-3.5); Total Protein 5.5 g/dL (6.0-8.3)
[2017-02-05 08:04] LABS: Bilirubin,Total 1.5 mg/dL (0.2-1.2)
[2017-02-05] MEDS: 0.9 % Sodium Chloride w KCl 20 MEQ/1,000 ML MLS IVC SCH ×2 (08:10→18:53)
[2017-02-05] MEDS: Pantoprazole 40 MG VIAL IVP SCH (08:11)
[2017-02-05] MEDS: Folic Acid 1 MG TABLET PO SCH (08:11)
[2017-02-05] MEDS ORDERED: *HR* HYDROmorphone 20 MG/20 ML PCA IVC PRN (08:36)
[2017-02-05] MEDS ORDERED: 0.9 % Sodium Chloride 500 ML ONE (10:00)
--- NOTE | 2017-02-05 13:29 | General Surgery Consult Note ---
<Afsaneh Connolly - Last Filed: 02/05/17 14:46> Date of Encounter: 02/05/17 Time of Encounter: 13:27 Assessment and Plan (1) Gallstones without obstruction of gallbladder Current Visit: Yes Status: Acute Patient with non-obstructing gallstones on abdominal ultrasound. It is unlikely that this is the cause of her acute pancreatitis. This is the 1st episode of right upper quadrant discomfort. Given her findings on endoscopy and clinical course, there is no surgical intervention indicated at this time. -Recommend continued discomfort management and supportive care per the primary team and gastroenterology. We will follow at a distance at this time. Qualifiers: Cholelithiasis location: gallbladder Cholecystitis presence: without cholecystitis Qualified Code(s): K80.20 - Calculus of gallbladder without cholecystitis without obstruction (2) Pancreatitis, acute Current Visit: Yes Status: Acute Management per primary team Qualifiers: Pancreatitis type: unspecified pancreatitis type Acute pancreatitis complication: unspecified Qualified Code(s): K85.90 - Acute pancreatitis without necrosis or infection, unspecified (3) Anemia Current Visit: Yes Status: Acute Management per primary team Qualifiers: Anemia type: folate deficiency Folate deficiency anemia type: unspecified folate deficiency Qualified Code(s): D52.9 - Folate deficiency anemia, unspecified History of Present Illness Consult date: 02/05/17 (Dr. Lamar) Reason for consult: gallstones Requesting physician: Joseluis Potter History of present illness: Annette is a pleasant 46-year old female with a past medical history of GERD, anxiety, depression, and three-quarter pack per day smoking history for at least 10 years, a surgical history of orthopedic surgeries including right hand, right hip pain, tonsils and adenoid, total abdominal hysterectomy in 2006. She denies illicit drug use. She initially denies alcohol use, but when further questioned she endorses "I drink a few drinks on the weekend. It just depends on what I'm doing." We have been asked to see the patient for evaluation of possible gallstone pancreatitis. She presented on 02/04/2017 for complaints of mid-upper abdominal pain that started on Friday 02/02 and continued to worsen. She states the abdominal pain was sharp, associated with multiple episodes of nausea and vomiting, was aggravated by drinking liquids or attempting to eat food, and had no alleviating factors. This was her 1st episode of this discomfort. for hospital course thus far has included a CT of the abdomen and pelvis which revealed significant edema to the duodenum and significant surrounding inflammatory changes, small foci of gas not felt to be a perforation, and submucosal fat deposition along the entire colonic wall which was nonspecific. An indomitable ultrasound was completed which revealed inflammatory changes noted along the 2nd and 3rd portion of the duodenum and obstruction of the common bile duct, gallstones and no adjacent inflammatory changes, prominence of the pancreatic duct that could be related to obstruction/inflammation. Lipase elevated at 1660 and has decreased to 89 today. Her white blood cell count is 1.5. Her hemoglobin has increased from 4.1 on admission to 8.2 after transfusion of 4 units packed red blood cells and one unit of platelets. She has been evaluated by Dr. Velez who completed an upper endoscopy on 02/04/2017 which noted normal esophagus, large hiatal hernia, and severe congested/ edematous duodenal mucosa in the 2nd part of the duodenum due to pancreatitis thought to be related to alcohol use. She was recommended ice chips only, IV fluids, and colonoscopy possibly on Thursday. A Dobhoff was placed below the pylorus for enteral nutrition per the primary medicine team. She denies lightheadedness or dizziness, chest pain, shortness of breath, nausea or vomiting currently, black bloody or tarry stool, changes in bowel habits, or generalized weakness. She endorses mid-upper abdominal pain that radiates from the right to her back. She denies aggravating her alleviating factors currently. Past Med Surg Social Fam HX - Past Medical History Source: patient, old records reviewed Medical history: GERD, other Psychiatric history: anxiety, depression - Past Surgical History Surgical History: orthopedic, other (right hand ORIF; Right hip pain; Lumbar pain; x of right hip fracture; labral tear of hip joint; numbness in right leg) , JERALD/BSO (2005), other (T&A 1982) - Social History Smoking Status: Current every day smoker Packs per day: 3/4 pack per day for greater than 10 years Smokeless Tobacco Status: No Alcohol use: recent (Unable to quantify the amount of alcohol she consumes but states she drinks at least every weekend) Drug use: none Occupational status: unemployed Current living situation: Home - Independent Recent Out of Country Travel Within the Last 8 Weeks: No Exposure or Possible Exposure to Illness During Travel: No - Family History Father Hx Family Cardiac Disorders: Yes Hx Family Cancer: Yes (Breast cancer) Medications and Allergies Furosemide [Lasix] 20 mg PO 2XW 02/03/17 [History] Gabapentin [Neurontin] 300 mg PO BID 02/03/17 [History] Ibuprofen [Motrin] 800 mg PO Q8H PRN 02/03/17 [History] Methocarbamol [Robaxin] 750 mg PO Q6-8H 02/03/17 [History] Potassium Chloride 20 meq PO DAILY 02/03/17 [History] Propranolol HCl 40 mg PO TID 02/03/17 [History] 3 Allergy/AdvReac Type Severity Reaction Status Date / Time celecoxib [From Celebrex] Allergy Hives Verified 10/08/16 13:49 Penicillins Allergy Hives Verified 10/08/16 13:49 Review of Systems All systems PM: A 10-system review of systems was performed and is negative for pertinent findings except as documented above in the HPI. General Surgery Exam Initial Vital Signs Temp Pulse Resp BP Pulse Ox 98.4 F 103 18 105/75 100 02/03/17 18:08 02/03/17 18:08 02/03/17 18:08 02/03/17 18:08 02/03/17 18:08 - General physical appearance well nourished, no distress, moderate pain, other (NG tube noted) - Eyes normal ocular movement - ENT normal mucosa, atraumatic, normocephalic - Neck trachea midline, no venous distension - Respiratory normal respiratory effort, clear to auscultation. negative: normal expansion ( Decreased lung sounds) - Cardiovascular Cardiovascular exam: Present: RRR, 15, 16 - Abdomen Abdomen general surgery: Present: bowel sounds present, soft, tender Abdominal Tenderness: Present: epigastic, RUQ - Integumentary Integumentary general surgery: Present: warm and dry, other (Plethoric areas to the face.) - Neurologic Present: CN 2-12 grossly intact, normal coordination, normal sensation - Musculoskeletal Present: normal gait, normal posture - Psychiatric Psychiatric general surgery: Present: A&Ox3, appropriate, oriented to person, oriented to place, oriented to time, speech is normal, memory intact Exam Initial Vital Signs Temp Pulse Resp BP Pulse Ox 98.4 F 103 18 105/75 100 02/03/17 18:08 02/03/17 18:08 02/03/17 18:08 02/03/17 18:08 02/03/17 18:08 Results - Labs 02/05/17 05:54 02/05/17 05:54 Abnormal lab results WBC 1.5 K/mcL (4.3-11.1) L 02/05/17 05:54 RBC 2.55 M/mcL (3.82-4.97) L 02/05/17 05:54 Hgb 8.2 g/dL (11.5-15.4) L D 02/05/17 05:54 Hct 24.0 % (35.3-44.9) L 02/05/17 05:54 RDW 24.3 % (11.5-14.5) H 02/05/17 05:54 Neutrophils # 0.6 K/mcL (1.6-8.9) L 02/05/17 05:54 Lymphocytes # 0.5 K/mcL (0.6-4.6) L 02/05/17 05:54 Nucleated RBCs/100 WBC 2.0 /100 WBC (0) H 02/04/17 06:21 Hypochromasia Present (Not Present) A 02/04/17 06:21 Anisocytosis 3+ (Not Present) A 02/05/17 05:54 Microcytosis Present (Not Present) A 02/05/17 05:54 Macrocytosis Present (Not Present) A 02/05/17 05:54 Stomatocytes 1+ (Not Present) A 02/03/17 19:00 Retic Hgb Equivalent 39.8 pg (28.61-36.33) H 02/04/17 06:21 APTT 24.0 Seconds (26.0-36.0) L 02/04/17 07:57 Sodium 135 mEq/L (136-145) L 02/05/17 05:54 Potassium 3.2 mEq/L (3.5-4.5) L 02/05/17 05:54 BUN 3 mg/dL (7-20) L 02/05/17 05:54 Creatinine 0.43 mg/dL (0.57-1.11) L 02/05/17 05:54 Calculated Osmolality 276 (280-300) L 02/05/17 05:54 Calcium 8.0 mg/dL (8.6-10.8) L 02/05/17 05:54 Magnesium 1.4 mg/dL (1.6-2.6) L 02/04/17 06:21 Iron 292 mcg/dL (50-170) H 02/04/17 07:57 % Saturation 82 % (15-50) H 02/04/17 07:57 Ferritin 476 ng/ml (5-204) H 02/04/17 07:57 Total Bilirubin 1.5 mg/dL (0.2-1.2) H D 02/05/17 05:54 Direct Bilirubin 0.7 mg/dL (0.0-0.5) H 02/05/17 05:54 Serum Total Protein 5.5 g/dL (6.0-8.3) L 02/05/17 05:54 Albumin 2.7 g/dL (3.5-5.0) L 02/05/17 05:54 Albumin/Globulin Ratio 1.0 (1.1-2.2) L 02/05/17 05:54 HDL Cholesterol 23 mg/dL (40-59) L 02/04/17 06:21 Lipase 89 Units/L (8-78) H 02/05/17 05:54 Folate 6.3 ng/mL (7.0-31.4) L 02/03/17 22:28 TSH 6.648 mcIU/mL (0.350-4.840) H 02/03/17 22:28 Urine Clarity Cloudy (Clear) A 02/03/17 22:23 Urine Protein 100 mg/dL (Neg-Trace) H 02/03/17 22:23 Urine Ketones Trace mg/dL (Negative) H 02/03/17 22:23 Urine Bilirubin Small (Negative) H 02/03/17 22:23 Ur Leukocyte Esterase Trace (Negative) H 02/03/17 22:23 Ur Culture Indicated? YES (NO) A 02/03/17 22:23 Diabetes panel 02/05/17 Range/Units 05:54 Sodium 135 L (136-145) mEq/L Potassium 3.2 L (3.5-4.5) mEq/L Chloride 108 (98-109) mEq/L Carbon Dioxide 19 (19-29) mEq/L BUN 3 L (7-20) mg/dL Creatinine 0.43 L (0.57-1.11) mg/dL Glucose 85 (70-99) mg/dL Calcium 8.0 L (8.6-10.8) mg/dL AST 30 (5-34) Units/L ALT 15 (0-55) Units/L Alkaline Phosphatase 72 (38-126) Units/L Albumin 2.7 L (3.5-5.0) g/dL Calcium panel 02/05/17 Range/Units 05:54 Calcium 8.0 L (8.6-10.8) mg/dL Albumin 2.7 L (3.5-5.0) g/dL Pituitary panel 02/05/17 Range/Units 05:54 Sodium 135 L (136-145) mEq/L Potassium 3.2 L (3.5-4.5) mEq/L Chloride 108 (98-109) mEq/L Carbon Dioxide 19 (19-29) mEq/L BUN 3 L (7-20) mg/dL Creatinine 0.43 L (0.57-1.11) mg/dL Glucose 85 (70-99) mg/dL Calcium 8.0 L (8.6-10.8) mg/dL Adrenal panel 02/05/17 Range/Units 05:54 Sodium 135 L (136-145) mEq/L Potassium 3.2 L (3.5-4.5) mEq/L Chloride 108 (98-109) mEq/L Carbon Dioxide 19 (19-29) mEq/L BUN 3 L (7-20) mg/dL Creatinine 0.43 L (0.57-1.11) mg/dL Glucose 85 (70-99) mg/dL Calcium 8.0 L (8.6-10.8) mg/dL Total Bilirubin 1.5 H D (0.2-1.2) mg/dL AST 30 (5-34) Units/L ALT 15 (0-55) Units/L Alkaline Phosphatase 72 (38-126) Units/L Albumin 2.7 L (3.5-5.0) g/dL All other labs normal. - Imaging Additional studies: Abdomen/Pelvis CT 02/03/17 20:32 IMPRESSION: 1. Marked wall thickening with submucosal edema involving the horizontal portion of the duodenum with significant surrounding inflammatory changes. Findings are nonspecific, but could represent an infectious or inflammatory duodenitis. Peptic ulcer disease and less likely tumor or pancreatitis of the pancreatic head are also in the differential. Follow-up with endoscopy is recommended. 2. Small foci of gas in the right upper quadrant adjacent to the hepatic flexure felt to represent colonic diverticula rather than contained perforation. 3. Submucosal fat deposition along the entire colonic wall is nonspecific, but can be seen in the setting of chronic inflammatory bowel disease. D/ / 02/03/2017 23:32:32 Nikos Park MD / [email or web address] Interpreting Provider: Nikos Park MD Abdomen Ultrasound 02/04/17 08:30 IMPRESSION: 1. There is intra and extrahepatic biliary ductal dilatation that appears to have increased since the previous study. This may be related to the inflammatory changes noted along the 2nd and 3rd portion of the duodenum and obstruction of the common bile duct. MRCP or ERCP may be of benefit for further evaluation. 2. Gallstones. No adjacent inflammatory changes. 3. Prominence of the pancreatic duct, increased in size. This could also be related to obstruction from the inflammatory changes in the duodenum. D/ / 02/04/2017 10:22:36 Jr Ceja MD / [facility] Interpreting Provider: Jr Ceja MD X-Ray 02/05/17 13:13 IMPRESSION: Enteric tube has been advanced since prior imaging. Tip is now present in the 3rd portion of the duodenum. D/ / John Martinez MD / John Martinez MD Interpreting Provider: John Martinez MD Consult Discharge Plan - Plan Referrals: Danii Berg MD [Primary Care Provider] - 02/16/17 10:20 am (Please follow up as schedule..) <Eliel Lamar - Last Filed: 02/06/17 12:31> Date of Encounter: 02/06/17 Review of Systems All systems PM: A 10-system review of systems was performed and is negative for pertinent findings except as documented above in the HPI. General Surgery Exam Initial Vital Signs Temp Pulse Resp BP Pulse Ox 98.4 F 103 18 105/75 100 02/03/17 18:08 02/03/17 18:08 02/03/17 18:08 02/03/17 18:08 02/03/17 18:08 Exam Initial Vital Signs Temp Pulse Resp BP Pulse Ox 98.4 F 103 18 105/75 100 02/03/17 18:08 02/03/17 18:08 02/03/17 18:08 02/03/17 18:08 02/03/17 18:08 Results - Labs 02/06/17 02:16 02/06/17 02:16 Abnormal lab results WBC 1.8 K/mcL (4.3-11.1) L 02/06/17 02:16 RBC 2.39 M/mcL (3.82-4.97) L 02/06/17 02:16 Hgb 7.8 g/dL (11.5-15.4) L 02/06/17 02:16 Hct 22.9 % (35.3-44.9) L 02/06/17 02:16 RDW 24.1 % (11.5-14.5) H 02/06/17 02:16 Plt Count 128 K/mcL (140-400) L 02/06/17 02:16 Neutrophils # 0.5 K/mcL (1.6-8.9) L 02/06/17 02:16 Nucleated RBCs/100 WBC 1.1 /100 WBC (0) H 02/06/17 02:16 Hypochromasia Present (Not Present) A 02/04/17 06:21 Anisocytosis 2+ (Not Present) A 02/06/17 02:16 Microcytosis Present (Not Present) A 02/05/17 05:54 Macrocytosis Present (Not Present) A 02/05/17 05:54 Stomatocytes 1+ (Not Present) A 02/03/17 19:00 Retic Hgb Equivalent 39.8 pg (28.61-36.33) H 02/04/17 06:21 APTT 24.0 Seconds (26.0-36.0) L 02/04/17 07:57 Potassium 3.1 mEq/L (3.5-4.5) L 02/06/17 02:16 Carbon Dioxide 18 mEq/L (19-29) L 02/06/17 02:16 BUN 3 mg/dL (7-20) L 02/06/17 02:16 Creatinine 0.43 mg/dL (0.57-1.11) L 02/06/17 02:16 Calculated Osmolality 277 (280-300) L 02/06/17 02:16 Calcium 8.0 mg/dL (8.6-10.8) L 02/06/17 02:16 Magnesium 1.4 mg/dL (1.6-2.6) L 02/04/17 06:21 Iron 292 mcg/dL (50-170) H 02/04/17 07:57 % Saturation 82 % (15-50) H 02/04/17 07:57 Ferritin 476 ng/ml (5-204) H 02/04/17 07:57 Total Bilirubin 1.4 mg/dL (0.2-1.2) H 02/06/17 02:16 Direct Bilirubin 0.7 mg/dL (0.0-0.5) H 02/05/17 05:54 Serum Total Protein 5.1 g/dL (6.0-8.3) L 02/06/17 02:16 Albumin 2.5 g/dL (3.5-5.0) L 02/06/17 02:16 Albumin/Globulin Ratio 1.0 (1.1-2.2) L 02/06/17 02:16 HDL Cholesterol 23 mg/dL (40-59) L 02/04/17 06:21 Lipase 89 Units/L (8-78) H 02/05/17 05:54 Folate 6.3 ng/mL (7.0-31.4) L 02/03/17 22:28 TSH 6.648 mcIU/mL (0.350-4.840) H 02/03/17 22:28 Urine Clarity Cloudy (Clear) A 02/03/17 22:23 Urine Protein 100 mg/dL (Neg-Trace) H 02/03/17 22:23 Urine Ketones Trace mg/dL (Negative) H 02/03/17 22:23 Urine Bilirubin Small (Negative) H 02/03/17 22:23 Ur Leukocyte Esterase Trace (Negative) H 02/03/17 22:23 Ur Culture Indicated? YES (NO) A 02/03/17 22:23 Diabetes panel 02/06/17 Range/Units 02:16 Sodium 136 (136-145) mEq/L Potassium 3.1 L (3.5-4.5) mEq/L Chloride 108 (98-109) mEq/L Carbon Dioxide 18 L (19-29) mEq/L BUN 3 L (7-20) mg/dL Creatinine 0.43 L (0.57-1.11) mg/dL Glucose 78 (70-99) mg/dL Calcium 8.0 L (8.6-10.8) mg/dL AST 15 (5-34) Units/L ALT 11 (0-55) Units/L Alkaline Phosphatase 68 (38-126) Units/L Albumin 2.5 L (3.5-5.0) g/dL Calcium panel 02/06/17 Range/Units 02:16 Calcium 8.0 L (8.6-10.8) mg/dL Albumin 2.5 L (3.5-5.0) g/dL Pituitary panel 02/06/17 Range/Units 02:16 Sodium 136 (136-145) mEq/L Potassium 3.1 L (3.5-4.5) mEq/L Chloride 108 (98-109) mEq/L Carbon Dioxide 18 L (19-29) mEq/L BUN 3 L (7-20) mg/dL Creatinine 0.43 L (0.57-1.11) mg/dL Glucose 78 (70-99) mg/dL Calcium 8.0 L (8.6-10.8) mg/dL Adrenal panel 02/06/17 Range/Units 02:16 Sodium 136 (136-145) mEq/L Potassium 3.1 L (3.5-4.5) mEq/L Chloride 108 (98-109) mEq/L Carbon Dioxide 18 L (19-29) mEq/L BUN 3 L (7-20) mg/dL Creatinine 0.43 L (0.57-1.11) mg/dL Glucose 78 (70-99) mg/dL Calcium 8.0 L (8.6-10.8) mg/dL Total Bilirubin 1.4 H (0.2-1.2) mg/dL AST 15 (5-34) Units/L ALT 11 (0-55) Units/L Alkaline Phosphatase 68 (38-126) Units/L Albumin 2.5 L (3.5-5.0) g/dL All other labs normal. - Attending Attestation I have personally performed a face to face evaluation on this patient. I have reviewed and agree with the care plan. History and Exam by me shows: Reviewed the assessment and evaluation for the above-mentioned patient and agree with the above plan. Patient known to have a significant alcohol history. Epigastric and upper abdominal pain noted. I personally reviewed the CT scan images which showed dilation of the duodenum and an enlarged inflamed pancreas. The patient had a ERCP due to dilation of the common bile duct and it was felt that the pancreas was causing compression on a common bile duct causing distention. She had no common duct stones but does have gallstones. I do think her pancreatitis is due to alcohol abuse and not due to gallstones. I would not recommend a cholecystectomy and would recommend dietary changes and lifestyle changes to help decrease the episodes of alcoholic pancreatitis.
--- NOTE | 2017-02-05 14:50 | Internal Med Progress Note ---
Date of Encounter: 02/05/17 Time of Encounter: 09:15 - Assessment and plan (1) Pancreatitis, acute Current Visit: Yes Status: Acute Assessment and plan: Severe pancreatitis with duodenal edema and inflammation. We will continue supportive care with pain medications. Will place patient on IV Dilaudid TOE PUNCHER to control pain better. High risk for complications. Lipase levels are improving. Given severe duodenal edema, we will avoid by mouth diet. We will place a Dobbhoff tube to 3rd part duodenum/ jejunum and start tube feeds. Continue IV hydration. Qualifiers: Pancreatitis type: alcohol induced Acute pancreatitis complication: no infection or necrosis Qualified Code(s): K85.20 - Alcohol induced acute pancreatitis without necrosis or infection (2) Pancytopenia Current Visit: Yes Status: Acute Assessment and plan: Most likely due to folic acid deficiency. We will replace folic acid. WBC count remained stable. Platelet counts are improving posttransfusion. (3) Folic acid deficiency Current Visit: Yes Status: Acute Assessment and plan: Will replace folic acid. Likely due to underlying history of alcohol abuse. (4) Anemia Current Visit: Yes Status: Acute Assessment and plan: Hemoglobin levels at 8.2 today. We will monitor. No signs of active bleeding on upper GI endoscopy. Most likely due to dietary folic acid deficiency with underlying history of alcohol abuse. Qualifiers: Anemia type: folate deficiency Folate deficiency anemia type: unspecified folate deficiency Qualified Code(s): D52.9 - Folate deficiency anemia, unspecified (5) DVT prophylaxis Current Visit: Yes Status: Acute Assessment and plan: With SCDs. Patient not started on medical anticoagulation due to concern for possible GI bleeding. However she has not had any episodes of GI bleed and her upper GI endoscopy did not show any active bleeding. She is however at high risk for thrombotic disorder due to severe pancreatitis. Will start patient on subcutaneous Lovenox. We will monitor blood counts closely. (6) Gallstones without obstruction of gallbladder Current Visit: Yes Status: Acute Assessment and plan: Abdominal ultrasound shows gallstones. We will consult surgery for the recommendations. Per my discussion with surgery, they did not recommend cholecystectomy at this time due to patient's history of alcohol abuse which probably caused her pancreatitis. Qualifiers: Cholelithiasis location: gallbladder Cholecystitis presence: without cholecystitis Qualified Code(s): K80.20 - Calculus of gallbladder without cholecystitis without obstruction - Subjective Interval history: Patient continues to have significant abdominal pain mainly in the epigastric region radiating to the right upper quadrant requiring Dilaudid every couple of hours without significant relief. No nausea or vomiting. Underwent upper GI endoscopy yesterday and was found to have severely edematous duodenal mucosa duodenum. No biliary stone was identified. No active bleeding. She denies any hematemesis. No diarrhea. Remains nothing by mouth - Constitutional Vitals: Temp Pulse Resp BP Pulse Ox 99.0 F 93 18 117/76 96 02/05/17 11:58 02/05/17 11:58 02/05/17 11:58 02/05/17 11:58 02/05/17 11:58 General appearance: Present: mild distress, A&O X 3, answers questions appropriately - Neck Neck exam general surgery: Present: supple, trachea midline. Absent: lymphadenopathy - Respiratory Respiratory exam: Present: CTAB. Absent: accessory muscle use, rales, rhonchi, wheezes - Cardiovascular Cardiovascular exam: Present: RRR, +S1, +S2. Absent: diastolic murmur, gallop, rubs, systolic murmur - GI/Abdominal GI/Abdominal exam: Present: normal bowel sounds, soft, tenderness (Epigastric), no peritoneal signs. Absent: distended - Extremities Exam Extremities exam: Present: warm, radial pulses palpable and symmetrical. Absent : calf tenderness, cyanotic, pedal edema - Neurological Exam Neurological exam: Present: alert, oriented X3, no focal deficits. Absent: facial droop, speech deficit - Skin Skin exam: Present: dry, intact Internal Medicine: Result - Labs CBC & Chem 7: 02/05/17 05:54 02/05/17 05:54 Labs: Short CBC 02/05/17 Range/Units 05:54 WBC 1.5 L (4.3-11.1) K/mcL Hgb 8.2 L D (11.5-15.4) g/dL Hct 24.0 L (35.3-44.9) % Plt Count 142 (140-400) K/mcL Neutrophils # 0.6 L (1.6-8.9) K/mcL BMP 02/05/17 05:54 Sodium 135 L Potassium 3.2 L Chloride 108 Carbon Dioxide 19 BUN 3 L Creatinine 0.43 L Glucose 85 Calcium 8.0 L Liver Function 02/05/17 Range/Units 05:54 Total Bilirubin 1.5 H D (0.2-1.2) mg/dL Direct Bilirubin 0.7 H (0.0-0.5) mg/dL AST 30 (5-34) Units/L ALT 15 (0-55) Units/L Alkaline Phosphatase 72 (38-126) Units/L Albumin 2.7 L (3.5-5.0) g/dL - ABG Interpretation ABG results: PT/INR, D-dimer PT 11.4 Seconds (9.4-12.1) 02/04/17 07:57 - Impressions Impressions KUB X-Ray 02/05/17 11:35 IMPRESSION: Dobhoff feeding tube in the region of the pylorus. D/ / 02/05/2017 13:03:52 Navid Torres MD / [facility]uz[facility] Gatica Interpreting Provider: Navid Torres MD X-Ray 02/05/17 13:13 IMPRESSION: Enteric tube has been advanced since prior imaging. Tip is now present in the 3rd portion of the duodenum. D/ / John Martinez MD / John Martinez MD Interpreting Provider: John Martinez MD - VTE Documentation of Mechanical Device: Intermittent pneumatic compression device Consult Discharge Plan - Plan Referrals: Danii Berg MD [Primary Care Provider] - 02/16/17 10:20 am (Please follow up as schedule..)
--- NOTE | 2017-02-05 15:29 | Electrocardiograph Report ---
[address] [place], [place] [address] Test Date: 2017-02-04 Pat Name: Annette Paul Department: 112 Room: 2A31 Gender: F [employer] Operator: CARLOS : 1970 Requested By: Joseluis Potter Order Number: [id number] Reading MD: Cecilio Soni Measurements Intervals Turner Rate: 68 P: -28 TX: 189 QRS: 69 QRSD: 77 T: 5 QT: 397 QTc: 415 Interpretive Statements SINUS RHYTHM SEPTAL MYOCARDIAL INFARCTION, OF INDETERMINATE AGE MODERATE T-WAVE ABNORMALITY, CONSIDER INFERIOR-LATERAL ISCHEMIA Electronically Signed On 02-05-2017 15:27:51 EDT by Cceilio Soni
[2017-02-05] MEDS: Ondansetron 4 MG/2 ML VIAL IVP PRN (18:10)
[2017-02-06 03:10] LABS: Basophils % 1.1 %; Nucleated Red Blood Cells 1.1 /100 WBC (0); Red Blood Count 2.39 M/mcL (3.82-4.97)
[2017-02-06 03:12] LABS: Eosinophils # 0.2 K/mcL (0.0-0.6); Hematocrit 22.9 % (35.3-44.9); Hemoglobin 7.8 g/dL (11.5-15.4); Lymphocytes % 41.6 %; Mean Corpuscular HGB Conc 34.1 g/dL (31.6-35.5); Mean Corpuscular Hemoglobin 32.6 pg (28.0-33.3); Mean Corpuscular Volume 95.8 fL (83.0-100.0); Mean Platelet Volume 10.5 fL (9.4-12.4); Monocytes # 0.3 K/mcL (0.0-1.3); Monocytes % 18.5 %; Neutrophils # 0.5 K/mcL (1.6-8.9); Platelet Count 128 K/mcL (140-400); Red Cell Distribution Width 24.1 % (11.5-14.5); Segmented Neutrophils % 29.8 %
[2017-02-06 03:16] LABS: Lymphocytes # 0.8 K/mcL (0.6-4.6)
[2017-02-06 03:30] LABS: Alanine Aminotransferase 11 Units/L (0-55); Albumin 2.5 g/dL (3.5-5.0); Alkaline Phosphatase 68 Units/L (38-126); Aspartate Amino Transferase 15 Units/L (5-34); BUN/Creatinine Ratio 7 (6-26); Bilirubin,Total 1.4 mg/dL (0.2-1.2); Carbon Dioxide 18 mEq/L (19-29); Chloride 108 mEq/L (98-109); Globulin 2.6 g/dL (2.4-3.5); Glucose 78 mg/dL (70-99); Osmolality,Calculated 277 (280-300); Potassium 3.1 mEq/L (3.5-4.5); Sodium 136 mEq/L (136-145); Total Protein 5.1 g/dL (6.0-8.3); eGFR For African Americans > 60 (> 60); eGFR For Non-African Americans > 60 (> 60)
[2017-02-06 03:32] LABS: Blood Urea Nitrogen 3 mg/dL (7-20)
[2017-02-06 03:33] LABS: Anisocytosis 2+ (Not Present); Platelet Estimate Normal (Normal)
[2017-02-06] MEDS: 0.9 % Sodium Chloride w KCl 20 MEQ/1,000 ML MLS IVC SCH ×2 (05:12→16:03)
[2017-02-06] MEDS: Folic Acid 1 MG TABLET PO SCH (09:00)
[2017-02-06] MEDS: Pantoprazole 40 MG VIAL IVP SCH (09:01)
--- NOTE | 2017-02-06 14:41 | Internal Med Progress Note ---
Date of Encounter: 02/06/17 Time of Encounter: 09:20 - Assessment and plan (1) Pancreatitis, acute Current Visit: Yes Status: Acute Assessment and plan: Continue supportive care. Continue enteral feeds for now. If patient's pain continues to improve, will start patient on full liquid diet later today. May stop enteral feedings at that time. If patient continues to clinically improve , she should be ready for discharge tomorrow. No indication for cholecystectomy at this time due to this episode of pancreatitis most likely being related to alcohol abuse. We will discontinue OPERATIONS ASST pump. Start patient on oral pain medication regimen. Moderate risk for complications Qualifiers: Pancreatitis type: alcohol induced Acute pancreatitis complication: no infection or necrosis Qualified Code(s): K85.20 - Alcohol induced acute pancreatitis without necrosis or infection (2) Pancytopenia Current Visit: Yes Status: Acute Assessment and plan: WBC count improving. Hemoglobin levels are stable. Most likely due to folic acid deficiency. Platelet count 128 today. Continue folic acid supplementation. (3) Folic acid deficiency Current Visit: Yes Status: Acute Assessment and plan: On oral folic acid supplementation (4) Anemia Current Visit: Yes Status: Acute Assessment and plan: Macrocytic anemia. Most likely due to chronic alcohol use and folic acid deficiency. Continue oral folic acid supplementation. Qualifiers: Anemia type: folate deficiency Folate deficiency anemia type: dietary Qualified Code(s): D52.0 - Dietary folate deficiency anemia (5) DVT prophylaxis Current Visit: Yes Status: Acute Assessment and plan: Subcutaneous heparin (6) Gallstones without obstruction of gallbladder Current Visit: Yes Status: Acute Assessment and plan: No signs of cholecystitis. No urgent indication for cholecystectomy. Qualifiers: Cholelithiasis location: gallbladder Cholecystitis presence: without cholecystitis Qualified Code(s): K80.20 - Calculus of gallbladder without cholecystitis without obstruction - Subjective Interval history: Patient feels significantly better today. Her abdominal pain has significantly improved. She is tolerating enteral feeds well. Denies any nausea or vomiting. - Constitutional Vitals: Temp Pulse Resp BP Pulse Ox 97.4 F L 69 15 109/74 95 02/06/17 10:32 02/06/17 10:32 02/06/17 10:32 02/06/17 10:32 02/06/17 10:32 General appearance: Present: mild distress, A&O X 3, answers questions appropriately - Neck Neck exam general surgery: Present: supple, trachea midline. Absent: lymphadenopathy - Respiratory Respiratory exam: Present: CTAB. Absent: accessory muscle use, rales, rhonchi, wheezes - Cardiovascular Cardiovascular exam: Present: RRR, +S1, +S2. Absent: diastolic murmur, gallop, rubs, systolic murmur - GI/Abdominal GI/Abdominal exam: Present: normal bowel sounds, soft, tenderness (Mild epigastric tenderness), no peritoneal signs. Absent: distended - Extremities Exam Extremities exam: Present: warm, radial pulses palpable and symmetrical. Absent : calf tenderness, cyanotic, pedal edema - Neurological Exam Neurological exam: Present: CN II-XII intact, oriented X3, no focal deficits. Absent: facial droop, speech deficit - Skin Skin exam: Present: dry, intact Internal Medicine: Result - Labs CBC & Chem 7: 02/06/17 02:16 02/06/17 02:16 Labs: Short CBC 02/06/17 Range/Units 02:16 WBC 1.8 L (4.3-11.1) K/mcL Hgb 7.8 L (11.5-15.4) g/dL Hct 22.9 L (35.3-44.9) % Plt Count 128 L (140-400) K/mcL Neutrophils # 0.5 L (1.6-8.9) K/mcL BMP 02/06/17 02:16 Sodium 136 Potassium 3.1 L Chloride 108 Carbon Dioxide 18 L BUN 3 L Creatinine 0.43 L Glucose 78 Calcium 8.0 L Liver Function 02/06/17 Range/Units 02:16 Total Bilirubin 1.4 H (0.2-1.2) mg/dL AST 15 (5-34) Units/L ALT 11 (0-55) Units/L Alkaline Phosphatase 68 (38-126) Units/L Albumin 2.5 L (3.5-5.0) g/dL - ABG Interpretation ABG results: PT/INR, D-dimer PT 11.4 Seconds (9.4-12.1) 02/04/17 07:57 - Impressions Impressions KUB X-Ray 02/05/17 19:11 IMPRESSION: Tip of feeding tube projects over mid to distal thoracic esophagus, below level of the laura. Recommend advancement of feeding tube, and repeat abdomen radiograph. D/ / Blaise Neville MD / Blaise Neville MD Interpreting Provider: Blaise Neville MD X-Ray 02/06/17 02:00 IMPRESSION: The tip of the feeding tube is now in the stomach. D/ / Dani Browne MD / Dani Browne MD Interpreting Provider: Dani Browne MD - VTE Documentation of Mechanical Device: Intermittent pneumatic compression device Consult Discharge Plan - Plan Referrals: Danii Berg MD [Primary Care Provider] - 02/16/17 10:20 am (Please follow up as schedule..)
[2017-02-06] MEDS: Potassium Chloride Elixir 20 MEQ/15 ML UDC PO SCH ×2 (16:02→21:06)
[2017-02-06] MEDS: *HR* OxyCODONE/APAP 10/325 TABLET PO PRN ×2 (16:03→21:06)
[2017-02-06] MEDS: *HR* Enoxaparin 40 MG/0.4 ML SYRINGE SQ SCH (16:03)
[2017-02-06] MEDS ORDERED: Nicotine 21 MG PATCH.TD24 TD SCH (17:00)
[2017-02-06 22:57] LABS: Alpha 2 Globulin (PEP) 0.63 g/dL (0.48-1.05); Beta Globulin (PEP) 0.58 g/dL (0.48-1.10)
[2017-02-07] MEDS ORDERED: *HR* HYDROmorphone (PF) 1 MG/ML SYRINGE IVP ONE (00:02)
[2017-02-07] MEDS: 0.9 % Sodium Chloride w KCl 20 MEQ/1,000 ML MLS IVC SCH (02:09)
[2017-02-07] MEDS: *HR* Enoxaparin 40 MG/0.4 ML SYRINGE SQ SCH (04:11)
[2017-02-07] MEDS: *HR* OxyCODONE/APAP 10/325 TABLET PO PRN ×3 (04:11→11:34)
[2017-02-07 06:46] LABS: Eosinophils # 0.2 K/mcL (0.0-0.6); Hematocrit 23.1 % (35.3-44.9); Hemoglobin 7.8 g/dL (11.5-15.4); Mean Corpuscular HGB Conc 33.8 g/dL (31.6-35.5); Mean Corpuscular Hemoglobin 32.6 pg (28.0-33.3); Mean Corpuscular Volume 96.7 fL (83.0-100.0); Mean Platelet Volume 10.8 fL (9.4-12.4); Platelet Count 123 K/mcL (140-400); Red Blood Count 2.39 M/mcL (3.82-4.97)
[2017-02-07 07:00] LABS: BUN/Creatinine Ratio 7 (6-26); Carbon Dioxide 19 mEq/L (19-29); Chloride 110 mEq/L (98-109); Glucose 75 mg/dL (70-99); Osmolality,Calculated 277 (280-300); Potassium 3.8 mEq/L (3.5-4.5); Sodium 136 mEq/L (136-145); eGFR For African Americans > 60 (> 60); eGFR For Non-African Americans > 60 (> 60)
[2017-02-07 07:04] LABS: Blood Urea Nitrogen 3 mg/dL (7-20)
[2017-02-07 07:16] LABS: Anisocytosis 2+ (Not Present); Monocytes # 0.2 K/mcL (0.0-1.3); Neutrophils # 0.8 K/mcL (1.6-8.9); Platelet Estimate Normal (Normal)
[2017-02-07 07:23] LABS: Triiodothyronine (T3) Free 1.72 pg/mL (1.71-3.71)
[2017-02-07 07:35] VITALS: BP 133/90
[2017-02-07] MEDS: Folic Acid 1 MG TABLET PO SCH (08:10)
[2017-02-07] MEDS: Pantoprazole 40 MG VIAL IVP SCH (08:10)
--- NOTE | 2017-02-07 10:26 | Discharge Summary ---
Date of Encounter: 02/07/17 Time of Encounter: 09:30 - Discharge Diagnosis (1) Pancreatitis, acute Priority: Primary Status: Acute Qualifiers: Pancreatitis type: alcohol induced Acute pancreatitis complication: no infection or necrosis Qualified Code(s): K85.20 - Alcohol induced acute pancreatitis without necrosis or infection (2) Pancytopenia Priority: Secondary Status: Acute (3) Folic acid deficiency Priority: Secondary Status: Acute (4) Anemia Priority: Secondary Status: Acute Qualifiers: Anemia type: folate deficiency Folate deficiency anemia type: dietary Qualified Code(s): D52.0 - Dietary folate deficiency anemia (5) DVT prophylaxis Priority: Secondary Status: Acute (6) Gallstones without obstruction of gallbladder Priority: Secondary Status: Acute Qualifiers: Cholelithiasis location: gallbladder Cholecystitis presence: without cholecystitis Qualified Code(s): K80.20 - Calculus of gallbladder without cholecystitis without obstruction (7) Chronic alcohol use Priority: Secondary Status: Chronic - Discharge Medications Prescriptions: OxyCODONE/APAP 10/325 [Percocet 10/325 MG] 1 each PO Q4HR #30 tablet Folic Acid 1 mg PO DAILY #30 tablet Omeprazole [PriLOSEC] 20 mg PO DAILY #30 cap Home Medications: Furosemide [Lasix] 20 mg PO 2XW 02/03/17 [History] Gabapentin [Neurontin] 300 mg PO BID 02/03/17 [History] Ibuprofen [Motrin] 800 mg PO Q8H PRN 02/03/17 [History] Methocarbamol [Robaxin] 750 mg PO Q6-8H 02/03/17 [History] Potassium Chloride 20 meq PO DAILY 02/03/17 [History] Propranolol HCl 40 mg PO TID 02/03/17 [History] Folic Acid 1 mg PO DAILY #30 tablet 02/07/17 [Rx] Omeprazole [PriLOSEC] 20 mg PO DAILY #30 cap 02/07/17 [Rx] OxyCODONE/APAP 10/325 [Percocet 10/325 MG] 1 each PO Q4HR #30 tablet 02/07/17 [ Rx] Allergies/Adverse Reactions: 3 Allergy/AdvReac Type Severity Reaction Status Date / Time celecoxib [From Celebrex] Allergy Hives Verified 10/08/16 13:49 Penicillins Allergy Hives Verified 10/08/16 13:49 Procedures/tests Complete & Pending: Procedures Performed prior 72 hours Category Date Time Status ECG 12 lead ECG [ECG] Routine Y 02/04/17 14:15 Completed Date of admission: 02/04/17 01:17 Primary care physician: Danii Berg MD Consults: 02/04/17 07:44 Consult to Gastroenterology [CONS] Routine Consulting Provider: Gastroenterology Sylvia Reason for Consult: Anemia/ pancreatitis/ duodentitis/ PUD per CT Time Notified: 07:44 Call Completed: Yes 02/05/17 08:39 Consult to Surgery [CONS] Routine Consulting Provider: Surgery Sylvia Surgical Reason for Consult: Pancreatitis; Gallstones Time Notified: 08:40 Call Completed: Yes 02/05/17 11:53 Consult to Nutrition [CONS] Routine Comment: Consulting Provider: NUTRITION Reason for Dietary Consult: Other TF Start and Manage Discharging clinician: Joseluis Potter Anticipated date of discharge: 02/07/17 - Patient Status Disposition: Home, Self-Care Condition: Good Functional capacity at discharge: independent ambulation Overall status at discharge: patient is progressing back to baseline - Discharge Instructions Instructions: Pancreatitis (DC), Anemia (GEN) Follow Up With: Danii Berg MD [Primary Care Provider] - 02/16/17 10:20 am (Please follow up as schedule..) - Diet and Activity Activity: increase activity as tolerated Diet: low fat, low cholesterol, low salt diet Hospital course: Ms. Paul is a 46 year old female patient with past medical history of gastroesophageal reflux disease, anxiety and depression who presented to the ER with complaints of acute abdominal pain in the epigastric region. She was found to have severe acute pancreatitis with a lipase level of 1660. Blood work also showed a severe macrocytic anemia with a hemoglobin of 4.1 along with leukopenia with a WBC count of 1.1. Further workup for this revealed that the patient had folic acid deficiency. Peripheral smear was also suggestive of this. Patient did receive 4 units of packed red blood cells and one packed platelets with improvement in her hemoglobin levels. She was evaluated by gastroenterology and underwent upper GI endoscopy to see if she had any active GI bleeding. upper GI endoscopy did not show any gastritis but patient did have a severely adamant as duodenal mucosa likely due to underlying pancreatitis. Gallbladder ultrasound showed ductal dilatation and gallstones. Surgery was consulted to see if patient would be a candidate for laparoscopic cholecystectomy given her pancreatitis. Surgery evaluated the patient and per their recommendations, no laparoscopic cholecystectomy was indicated at this time. Her pancreatitis is believed to be a result of alcohol use than gallstone related. Given her severely edematous duodenal mucosa, patient wasstarted on enteral feeds after placement of Dobbhoff tube. She was also placed on intravenous Dilaudid NEUROLOGY PROFESSOR pump to control her pain better. Since yesterday her pain has significantly improved and she is now tolerating oral diet well. The feeding tube has now been removed and she is stable to be discharged home. She is advised to return to the ER if she develops worsening pain. She will follow up further with her primary care provider. She is being discharged on folic acid supplements. - Time Spent with Patient Total time spent providing and/or coordinating discharge services: Greater than 30 minutes (35 min) - Constitutional Vitals: Temp Pulse Resp BP Pulse Ox 97.8 F 77 18 133/90 98 02/07/17 07:32 02/07/17 07:32 02/07/17 07:32 02/07/17 07:32 02/07/17 07:32 General appearance: Present: cooperative, mild distress, A&O X 3, answers questions appropriately - Neck Neck exam general surgery: Present: supple, trachea midline. Absent: lymphadenopathy - Cardiovascular Cardiovascular exam: Present: RRR, +S1, +S2. Absent: diastolic murmur, gallop, rubs, systolic murmur - GI/Abdominal GI/Abdominal exam: Present: normal bowel sounds, soft, tenderness (epigastric), no peritoneal signs. Absent: distended - Extremities Exam Extremities exam: Present: warm, radial pulses palpable and symmetrical. Absent : calf tenderness, cyanotic, pedal edema - Skin Skin exam: Present: dry, intact - VTE Documentation of Mechanical Device: Intermittent pneumatic compression device
[2017-02-09 07:17] LABS: IFE Reflexed NOT DONE
== END 2017-02-07 11:53 | disposition home or self-care (01) | DRG 439 ==
LOC: EMEROO 17:51 → 2ANU 17:51
PROVIDERS: ADMIT Internal Medicine; ATTEND Internal Medicine

== ENCOUNTER 2017-05-04 21:23 | Inpatient (IN) ==
[2017-05-04] MEDS ORDERED: 0.9 % Sodium Chloride 1,000 ML IVC ONE (21:32)
[2017-05-04] MEDS ORDERED: methylPREDNISolone 125 MG/2 ML VIAL IVP ONE (21:32)
[2017-05-04] MEDS ORDERED: Ipratropium/Albuterol Neb 3 ML IH ONE (21:32)
--- NOTE | 2017-05-04 21:40 | Emergency Department Note ---
Disposition Clinical Impression: Folic acid deficiency, Gallstones without obstruction of gallbladder, Macrocytic anemia, Leukopenia, Weakness Disposition: Admitted As Inpatient Condition: Fair Forms: ED Satisfaction Letter Time of Disposition: 22:35 Weakness HPI - General Chief complaint: ED Weakness Stated complaint: weakness Time Seen by Provider: 05/04/17 21:32 Source: patient, EMS Limitations: no limitations Nursing Notes Reviewed: Yes Vital Signs Reviewed: Yes - History of Present Illness HPI Narrative: 47-year-old female is brought to the ER via ambulance for weakness. She states she has been weak for the past couple months. She was diagnosed with pancreatitis in January. 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 She underwent an EGD which did not reveal any significant gastritis but did have some duodenal findings. If not this is secondary to her pancreatitis. There is reports of alcohol use at that time but currently she states that she drinks only once a month. They did not take her gallbladder out at that time. She did have evidence of gallstones on an ultrasound. She presents today for generalized weakness. States her has to carry her up the stairs to her bedroom. He has to help her get into bed secondary to her legs being extremely weak. There is no focal weakness complaints but more so generalized weakness. She is also complaining of chest pain secondary to a cough. She states she does have a history of smoking. She denies COPD. She states that she has been more coughing with some sputum at times which in turn has caused her abdomen to hurt from all the coughing. She denies any documented fevers. She has no active chest pain at this time. Again she denies any documented fevers. Legs are weak but denies any swelling. pt had iniitally lied about her etoh intake. she now admits to drinking daily sometimes up 12-15 beers per day. she is taking her folic acid she states. Pain Scale: 9 - Related Data Home Medications Medication Instructions Recorded Confirmed Furosemide [Lasix] 20 mg PO 2XW 02/03/17 02/03/17 Gabapentin [Neurontin] 300 mg PO BID 02/03/17 02/03/17 Ibuprofen [Motrin] 800 mg PO Q8H PRN 02/03/17 02/03/17 Methocarbamol [Robaxin] 750 mg PO Q6-8H 02/03/17 02/03/17 Potassium Chloride 20 meq PO DAILY 02/03/17 02/03/17 Propranolol HCl 40 mg PO TID 02/03/17 02/03/17 Previous Rx's Medication Instructions Recorded Folic Acid 1 mg PO DAILY #30 tablet 02/07/17 Omeprazole [PriLOSEC] 20 mg PO DAILY #30 cap 02/07/17 OxyCODONE/APAP 10/325 [Percocet 1 each PO Q4HR #30 tablet 02/07/17 10/325 MG] Allergies Allergy/AdvReac Type Severity Reaction Status Date / Time celecoxib [From Celebrex] Allergy Hives Verified 10/08/16 13:49 Penicillins Allergy Hives Verified 10/08/16 13:49 All systems ED: reviewed and negative except as stated. Constitutional: Reports: as per HPI. Denies: fever, chills Eyes: Reports: as per HPI ENT ED: Reports: as per HPI Cardiovascular: Reports: as per HPI, chest pain Respiratory: Reports: cough, wheezes Gastrointestinal: Reports: abdominal pain. Denies: nausea, vomiting, diarrhea Genitourinary: Reports: as per HPI Musculoskeletal: Reports: as per HPI, arthralgia, myalgia Neurological: Reports: as per HPI, weakness Psychiatric: Reports: as per HPI Endocrine: Reports: as per HPI, fatigue Hematological/Lymphatic: Reports: as per HPI Allergic/Immunologic: Reports: as per HPI Past Medical History - Past Medical History Medical history: Reports: GERD, other Surgical history: Reports: orthopedic, other (right hand ORIF; Right hip pain; Lumbar pain; x of right hip fracture; labral tear of hip joint; numbness in right leg), JERALD/BSO (2005), other (T&A 1982) Psychiatric history: Reports: anxiety, depression JACK SETTER history: Reports: non-contributory - Social History Smoking Status: Current every day smoker Smokeless Tobacco Status: No Alcohol use: Reports: occasionally, recent Drug use: Reports: none Physical Exam - General Limitations: no limitations General appearance: alert, in no apparent distress - Head Head exam: atraumatic, normocephalic - Eye Eye exam: Present: normal appearance - ENT ENT exam: normal exam - Neck Neck exam: Present: normal inspection - Chest Chest inspection: Present: normal inspection - Respiratory Respiratory exam: Present: wheezes, prolonged expiratory phase. Absent: respiratory distress, stridor - Cardiovascular Cardiovascular exam: Present: regular rate, normal rhythm, normal heart sounds - Abdominal Exam Abdominal exam: Present: soft, Non-Tender, normal bowel sounds. Absent: tenderness, distention, guarding, rebound - Extremities Exam Extremities exam: Present: normal inspection, tenderness, normal capillary refill. Absent: pedal edema, joint swelling - Expanded Lower Extremity Exam Hip/Pelvis exam: Present: normal inspection - Back Exam Back exam: Present: normal inspection - Neurological Exam Neurological exam: Present: alert, oriented X3 - Psychiatric Psychiatric exam: Present: normal affect, normal mood - Skin Skin exam: Present: warm, dry, intact Course Vital Signs Temperature 97.9 F 05/04/17 21:24 Pulse Rate 67 05/04/17 21:24 Respiratory Rate 20 05/04/17 21:24 Blood Pressure 96/61 05/04/17 21:24 O2 Sat by Pulse Oximetry 97 05/04/17 21:24 Temperature 97.9 F 05/04/17 21:24 Pulse Rate 67 05/04/17 21:24 Respiratory Rate 20 05/04/17 21:24 Blood Pressure 96/61 05/04/17 21:24 O2 Sat by Pulse Oximetry 97 05/04/17 21:24 Oxygen Delivery Oxygen Delivery Room Air Weakness - MDM Narrative Medical decision making narrative: Patient has severe macrocytic anemia with a hemoglobin of 3.8. She also has a white count of 1.4. All this was felt to be secondary to folate deficiency from alcohol problems. This was her workup in January 2017 when she was transfused blood as well. It appears as though she has the same issue again today. She is still drinking lots of alcohol per day although she lied to me initially about this but then later admitted that she drinks sometimes up to 12 or more beers per day. She denies blood in her stool. She was seen by general surgery on her last visit to the hospital. She also had a consult to GI. They did an EGD which did not show any bleeding or any significant evidence of gastritis. They thought her blood loss that time was all secondary to folate deficiency. It appears that is the case again today. I have ordered 2 units to be transfused. Patient will need be admitted to the hospital. Her LFTs and lipase are normal today. Chest x-ray was negative. - Medical Records Medical records reviewed: Yes I reviewed the patient's medical records. - Lab Data Lab results reviewed: Yes I reviewed the patient's lab results. Result diagrams: 05/04/17 21:48 05/04/17 21:48 Lab Results 05/04/17 05/04/17 05/04/17 Range/Units 21:48 21:48 21:48 WBC 1.4 L (4.3-11.1) K/mcL RBC 1.07 L (3.82-4.97) M/mcL Hgb 3.8 L* (11.5-15.4) g/dL Hct 11.3 L* (35.3-44.9) % MCV 105.6 H (83.0-100.0) fL MCH 35.5 H (28.0-33.3) pg MCHC 33.6 (31.6-35.5) g/dL RDW 17.5 H (11.5-14.5) % Plt Count 116 L (140-400) K/mcL MPV 11.3 (9.4-12.4) fL Immature Plt Fraction 5.9 (1.1-6.1) % Sodium 128 L (136-145) mEq/L Potassium 3.1 L (3.5-5.1) mEq/L Chloride 105 (98-107) mEq/L Carbon Dioxide 12 L (23-29) mEq/L BUN 4 L (6-20) mg/dL Creatinine 0.33 L (0.60-1.20) mg/dL Est GFR ( Amer) > 60 (> 60) Est GFR (Non-Af Amer) > 60 (> 60) BUN/Creatinine Ratio 12 (6-26) Glucose 89 (70-105) mg/dL Calculated Osmolality 262 L (280-300) Calcium 8.4 L (8.6-10.3) mg/dL Magnesium 1.7 (1.6-2.6) mg/dL Total Bilirubin 0.3 (0.3-1.0) mg/dL Direct Bilirubin 0.1 (0.0-0.2) mg/dL Indirect Bilirubin 0.2 (0.0-1.2) mg/dL AST 15 (13-39) Units/L ALT 14 (7-52) Units/L Alkaline Phosphatase 68 (34-104) Units/L Creatine Kinase 15 L (30-223) Units/L Troponin I < 0.03 (< 0.04) ng/mL Serum Total Protein 6.0 L (6.4-8.9) g/dL Albumin 3.7 (3.5-5.7) g/dL Globulin 2.3 L (2.4-3.5) g/dL Albumin/Globulin Ratio 1.6 (1.1-2.2) Lipase 49 (11-82) Units/L Urine Color (Yellow) Urine Clarity (Clear) Urine pH (5.0-8.0) pH Units Ur Specific [place] (1.010-1.025) Urine Protein (Neg-Trace) mg/dL Urine Glucose (UA) (Normal) mg/dL Urine Ketones (Negative) mg/dL Urine Blood (Negative) Urine Nitrite (Negative) Urine Bilirubin (Negative) Urine Urobilinogen (Normal) mg/dL Ur Leukocyte Esterase (Negative) Urine Microscopic RBC (0-3) per hpf Urine Microscopic WBC (0-3) per hpf Ur Squamous Epith Cells (None-Few) per lpf Urine Bacteria (None-Few) per hpf Hyaline Casts (None-Few) per lpf Ur Culture Indicated? (NO) 05/04/17 Range/Units 21:55 WBC (4.3-11.1) K/mcL RBC (3.82-4.97) M/mcL Hgb (11.5-15.4) g/dL Hct (35.3-44.9) % MCV (83.0-100.0) fL MCH (28.0-33.3) pg MCHC (31.6-35.5) g/dL RDW (11.5-14.5) % Plt Count (140-400) K/mcL MPV (9.4-12.4) fL Immature Plt Fraction (1.1-6.1) % Sodium (136-145) mEq/L Potassium (3.5-5.1) mEq/L Chloride (98-107) mEq/L Carbon Dioxide (23-29) mEq/L BUN (6-20) mg/dL Creatinine (0.60-1.20) mg/dL Est GFR ( Amer) (> 60) Est GFR (Non-Af Amer) (> 60) BUN/Creatinine Ratio (6-26) Glucose (70-105) mg/dL Calculated Osmolality (280-300) Calcium (8.6-10.3) mg/dL Magnesium (1.6-2.6) mg/dL Total Bilirubin (0.3-1.0) mg/dL Direct Bilirubin (0.0-0.2) mg/dL Indirect Bilirubin (0.0-1.2) mg/dL AST (13-39) Units/L ALT (7-52) Units/L Alkaline Phosphatase (34-104) Units/L Creatine Kinase (30-223) Units/L Troponin I (< 0.04) ng/mL Serum Total Protein (6.4-8.9) g/dL Albumin (3.5-5.7) g/dL Globulin (2.4-3.5) g/dL Albumin/Globulin Ratio (1.1-2.2) Lipase (11-82) Units/L Urine Color Yellow (Yellow) Urine Clarity Cloudy A (Clear) Urine pH 6.0 (5.0-8.0) pH Units Ur Specific [place] 1.012 (1.010-1.025) Urine Protein Negative (Neg-Trace) mg/dL Urine Glucose (UA) Normal (Normal) mg/dL Urine Ketones Negative (Negative) mg/dL Urine Blood Negative (Negative) Urine Nitrite Negative (Negative) Urine Bilirubin Negative (Negative) Urine Urobilinogen Normal (Normal) mg/dL Ur Leukocyte Esterase Negative (Negative) Urine Microscopic RBC 0-3 (0-3) per hpf Urine Microscopic WBC 3-5 H (0-3) per hpf Ur Squamous Epith Cells Many H (None-Few) per lpf Urine Bacteria Many H (None-Few) per hpf Hyaline Casts None Seen (None-Few) per lpf Ur Culture Indicated? NO (NO) - Radiology Data Radiology results reviewed: Yes I reviewed the patient's radiology results. - EKG Data EKG attestation: Yes I reviewed and interpreted this EKG. EKG results narrative: EKG shows a rate of 64. Normal sinus rhythm. Normal axis. IA interval 184. QRS 92. QTC 435. Patient has diffuse ST depressions in the lateral leads. This was seen on previous EKG from 1017 2016. Critical Care Time Critical Care Time: Yes Total Critical Care Time: 35 Attestation: Critical care time of 35 minutes spent in medical management of patient's significant anemia and weakness. As well as transfusion.
[2017-05-04 22:05] LABS: Bilirubin,Urine Negative (Negative); Blood,Urine Negative (Negative); Clarity,Urine Cloudy (Clear); Color,Urine Yellow (Yellow); Glucose,Urine (UA) Normal (Normal); Ketones,Urine Negative (Negative); Leukocyte Esterase,Urine Negative (Negative); Nitrite,Urine Negative (Negative); Protein,Urine Negative (Neg-Trace); Specific Gravity,Urine 1.012 (1.010-1.025); Urobilinogen,Urine Normal (Normal)
[2017-05-04 22:09] LABS: Bacteria,Urine Many per hpf (None-Few); Hyaline Casts,Urine None Seen per lpf (None-Few); RBC,Urine 0-3 per hpf (0-3); Squamous Epithelial Cell,Urine Many per lpf (None-Few)
[2017-05-04 22:13] LABS: Alanine Aminotransferase 14 Units/L (7-52); Albumin 3.7 g/dL (3.5-5.7); Albumin/Globulin Ratio 1.6 (1.1-2.2); Alkaline Phosphatase 68 Units/L (34-104); Aspartate Amino Transferase 15 Units/L (13-39); BUN/Creatinine Ratio 12 (6-26); Bilirubin,Direct 0.1 mg/dL (0.0-0.2); Bilirubin,Indirect 0.2 mg/dL (0.0-1.2); Bilirubin,Total 0.3 mg/dL (0.3-1.0); Blood Urea Nitrogen 4 mg/dL (6-20); Calcium 8.4 mg/dL (8.6-10.3); Carbon Dioxide 12 mEq/L (23-29); Chloride 105 mEq/L (98-107); Creatine Kinase 15 Units/L (30-223); Globulin 2.3 g/dL (2.4-3.5); Glucose 89 mg/dL (70-105); Lipase 49 Units/L (11-82); Magnesium 1.7 mg/dL (1.6-2.6); Osmolality,Calculated 262 (280-300); Potassium 3.1 mEq/L (3.5-5.1); Sodium 128 mEq/L (136-145); eGFR For African Americans > 60 (> 60); eGFR For Non-African Americans > 60 (> 60)
[2017-05-04 22:23] LABS: Eosinophils % 2.1 %; Immature Platelets 5.9 % (1.1-6.1); Lymphocytes # 0.7 K/mcL (0.6-4.6); Lymphocytes % 52.9 %; Mean Corpuscular HGB Conc 33.6 g/dL (31.6-35.5); Mean Corpuscular Hemoglobin 35.5 pg (28.0-33.3); Mean Corpuscular Volume 105.6 fL (83.0-100.0); Mean Platelet Volume 11.3 fL (9.4-12.4); Monocytes # 0.4 K/mcL (0.0-1.3); Monocytes % 26.4 %; Neutrophils # 0.3 K/mcL (1.6-8.9); Platelet Count 116 K/mcL (140-400); Red Blood Count 1.07 M/mcL (3.82-4.97); Red Cell Distribution Width 17.5 % (11.5-14.5); Segmented Neutrophils % 18.6 %
[2017-05-04 22:27] LABS: Hemoglobin 3.8 g/dL (11.5-15.4)
[2017-05-04 22:28] LABS: Hematocrit 11.3 % (35.3-44.9)
[2017-05-04 22:53] LABS: Anisocytosis 2+ (Not Present); Hypochromasia Present (Not Present)
[2017-05-04 22:57] LABS: Platelet Estimate Decreased (Normal)
[2017-05-04] MEDS ORDERED: 0.9 % Sodium Chloride 250 ML ONE (23:37)
[2017-05-04] MEDS ORDERED: Sodium Bicarbonate 50 MEQ/50 ML VIAL IVP ONE (23:48)
--- NOTE | 2017-05-04 23:55 | Emergency Department Note ---
START Narrative - START START: Patient taken over and sign out by the nighttime physician. Admission process to be completed. Detailed conversation was had with the hospitalist Dr. Webster. Reviewed the presentation symptoms and issues including macrocytic anemia most likely secondary to alcoholism. Recommend Hemoccult testing and one amp of bicarbonate given at this point secondary lab abnormalities. Patient is otherwise stable. These orders were placed at the request of hospice at this time. Admission process to be completed at this point. Hemoccult testing was completed, so the bedside no signs of gross blood or dark colored stool this time. Testing will be sent down to the lab for confirmation. Patient stable and in good medical condition at time of admission. Will continue to monitor your total treatment course is completed
[2017-05-05] MEDS ORDERED: Naloxone 0.4 MG/ML INJ IVP PRN (00:58)
[2017-05-05] MEDS ORDERED: Ondansetron 4 MG/2 ML VIAL IVP PRN (00:58)
[2017-05-05] MEDS ORDERED: *HR* LORazepam 2 MG/ML VIAL IVP PRN ×3 (01:02)
--- NOTE | 2017-05-05 02:40 | Internal Med History&Physical ---
Date of Encounter: 05/05/17 Time of Encounter: 02:05 Assessment and Plan (1) Anemia Current visit: No Status: Acute Reported history of Microcytic anemia with Folate deficiency s/p EGD and colonoscopy in with no acute bleeding reported Stool occult negative Pt to receive 4unit PRBC transfusion Hematology evaluation requested (please call consult in am) continue to closely monitor H&H continue home dose of folate Qualifiers: Anemia type: folate deficiency Folate deficiency anemia type: dietary Qualified Code(s): D52.0 - Dietary folate deficiency anemia (2) Weakness Current visit: Yes Status: Acute secondary to anemia continue PRBC transfusion (3) Chronic alcohol use Current visit: No Status: Chronic Will closely monitor for alcohol Withdrawal severe NAGMA likely secondary to alcohol abuse started on bicarb gtt continue folate, thiamine CIWA protocol ativan prn withdrawal Alcohol cessation counseling provided (4) Cholelithiasis Current visit: Yes Status: Chronic Pt has history of Cholelithiais and was worked up during her last admission and no surgical intervention was recommended then Will obtain Abd US given positive hollins's sign consider surgical evaluation based on the Abd US results supportive care Qualifiers: Cholelithiasis location: gallbladder Cholecystitis presence: without cholecystitis Biliary obstruction: without biliary obstruction Qualified Code(s): K80.20 - Calculus of gallbladder without cholecystitis without obstruction (5) Pancytopenia Current visit: No Status: Chronic hematology evaluation requested (6) Folic acid deficiency Current visit: Yes Status: Chronic continue folate supplementation (7) Tobacco abuse Current visit: Yes Status: Acute smoking cessation counseling provided pt refused nicotine supplementation (8) DVT prophylaxis Current visit: No Status: Acute SCD Internal Medicine - H&P: HPI Chief complaint: weakness, shortness of breath Admitted From: Home Plans for Post Hospital Care: Home History of present illness: Ms. Paul is a 47 year old female with PMH of microcytic anemia, GERD, anxiety, depression, alcohol and tobacco abuse, pancreatitis, cholelithiasis who presented to the ER for evaluation worsening generalized weakness and shortness of breath. Upon arrival to the ER she was found to have Hgb of 3.8. She also reported of having a few beers prior to her arrival to the ER. She reported of drinking 8-12beers daily for the last year. Pt was admitted in January for the same presentation and underwent EGD/Colonoscopy which was negative for any acute bleeds. She also complained of RUQ pain which is the same as her last hospitalization. At that time, no surgical intervention was recommended. She denied any fever or chills, however reports of having a cold for the last two weeks. She is noted to have positive Hollins's sign during my evaluation. Will obtain ABD US. Social hx: smokes 1ppd, drinks alcohol daily Past Med Surg Social Fam HX - Past Medical History Medical history: GERD, other Psychiatric history: anxiety, depression - Past Surgical History Surgical History: orthopedic, other, JERALD/BSO, other - Social History Smoking Status: Current every day smoker Smokeless Tobacco Status: No Alcohol use: occasionally, recent Drug use: none - Family History Father Hx Family Cardiac Disorders: Yes Hx Family Cancer: Yes (Breast cancer) Internal Medicine - H&P: Meds Furosemide [Lasix] 20 mg PO 2XW 02/03/17 [History] Gabapentin [Neurontin] 300 mg PO DAILY 02/03/17 [History] Ibuprofen [Motrin] 800 mg PO Q8H PRN 02/03/17 [History] Methocarbamol [Robaxin] 750 mg PO Q6-8H 02/03/17 [History] Potassium Chloride 20 meq PO DAILY 02/03/17 [History] Propranolol HCl 40 mg PO TID 02/03/17 [History] Folic Acid 1 mg PO DAILY #30 tablet 02/07/17 [Rx] Cholecalciferol (Vitamin D3) [Vitamin D3] 5,000 unit PO DAILY 05/04/17 [History] 3 Allergy/AdvReac Type Severity Reaction Status Date / Time celecoxib [From Celebrex] Allergy Hives Verified 10/08/16 13:49 Penicillins Allergy Hives Verified 10/08/16 13:49 All Systems PM: A 10-system review of systems was performed and is negative for pertinent findings except as documented above in the HPI. - Constitutional Constitutional: as per HPI - Constitutional Vitals: Temp Pulse Resp BP Pulse Ox 99 F 74 18 120/72 100 05/05/17 01:56 05/05/17 01:56 05/05/17 01:56 05/05/17 01:56 05/05/17 01:56 General appearance: Present: disheveled, A&O X 3, no acute distress, answers questions appropriately - Head Head exam: Present: atraumatic, normocephalic - Eye Eye exam: Present: conjuntiva pink, sclera anicteric - Respiratory Respiratory exam: Present: CTAB. Absent: accessory muscle use, rales, rhonchi, wheezes - Cardiovascular Cardiovascular exam: Present: RRR, +S1, +S2. Absent: diastolic murmur, gallop, rubs, systolic murmur - GI/Abdominal GI/Abdominal exam: Present: normal bowel sounds, soft, no peritoneal signs. Absent: distended, rebound Additional comments: positive hollins's sign - Extremities Exam Extremities exam: Present: warm, radial pulses palpable and symmetrical. Absent : calf tenderness, cyanotic, pedal edema - Neurological Exam Neurological exam: Present: alert, oriented X3 Internal Med - H&P Results - Labs CBC & Chem 7: 05/04/17 21:48 05/04/17 21:48
[2017-05-05] MEDS: Methocarbamol 750 MG TABLET PO SCH ×3 (03:24→16:48)
[2017-05-05] MEDS: Sodium Bicarbonate 150 MEQ in D5% in Water 1,000 ML IVC SCH ×2 (03:24→14:20)
[2017-05-05] MEDS: *HR* HYDROcodone/Acet 5/325 mg TABLET PO PRN ×4 (03:27→21:03)
[2017-05-05 03:39] LABS: Adenovirus Not Detected (Not Detect); Bordetella Pertussis Not Detected (Not Detect); Chlamydophila pneumoniae Not Detected (Not Detect); Coronavirus 229E Not Detected (Not Detect); Coronavirus HKU1 Not Detected (Not Detect); Coronavirus NL63 ***DETECTED*** (Not Detect); Coronavirus OC43 Not Detected (Not Detect); Human Metapneumovirus Not Detected (Not Detect); Human Rhinovirus/Enterovirus Not Detected (Not Detect); Influenza A Subtype 2009 H1 Not Detected (Not Detect); Influenza A Untypeable Not Detected (Not Detect); Influenza B Not Detected (Not Detect); Mycoplasma pneumoniae Not Detected (Not Detect); Parainfluenza Virus 1 Not Detected (Not Detect); Parainfluenza Virus 2 Not Detected (Not Detect); Parainfluenza Virus 3 Not Detected (Not Detect); Parainfluenza Virus 4 Not Detected (Not Detect); Respiratory Syncytial Virus Not Detected (Not Detect)
[2017-05-05] MEDS: Thiamine (B-1) 100 MG TABLET PO SCH (08:05)
[2017-05-05] MEDS: Gabapentin 300 MG CAPSULE PO SCH (08:06)
[2017-05-05] MEDS: Cholecalciferol (D-3) 1,000 UNIT TABLET PO SCH (08:06)
[2017-05-05] MEDS: Folic Acid 1 MG TABLET PO SCH (08:06)
[2017-05-05 08:19] LABS: Hematocrit 16.2 % (35.3-44.9); Mean Corpuscular HGB Conc 34.6 g/dL (31.6-35.5)
[2017-05-05 08:21] LABS: Lymphocytes # 0.3 K/mcL (0.6-4.6); Lymphocytes % 39.5 %; Mean Corpuscular Hemoglobin 32.4 pg (28.0-33.3); Mean Corpuscular Volume 93.6 fL (83.0-100.0); Mean Platelet Volume 11.3 fL (9.4-12.4); Monocytes # 0.3 K/mcL (0.0-1.3); Monocytes % 30.9 %; Neutrophils # 0.2 K/mcL (1.6-8.9); Red Blood Count 1.73 M/mcL (3.82-4.97); Red Cell Distribution Width 16.4 % (11.5-14.5); Segmented Neutrophils % 29.6 %
[2017-05-05 08:33] LABS: Hemoglobin 5.6 g/dL (11.5-15.4); Platelet Count 97 K/mcL (140-400)
[2017-05-05 09:11] LABS: BUN/Creatinine Ratio 19 (6-26); Blood Urea Nitrogen 5 mg/dL (6-20); Calcium 8.2 mg/dL (8.6-10.3); Carbon Dioxide 19 mEq/L (23-29); Chloride 106 mEq/L (98-107); Glucose 145 mg/dL (70-105); Magnesium 1.6 mg/dL (1.6-2.6); Osmolality,Calculated 278 (280-300); Phosphorous 2.4 mg/dL (2.7-4.5); Potassium 3.2 mEq/L (3.5-5.1); Sodium 134 mEq/L (136-145); eGFR For African Americans > 60 (> 60); eGFR For Non-African Americans > 60 (> 60)
[2017-05-05 09:28] LABS: Platelet Estimate Decreased (Normal)
[2017-05-05 09:29] LABS: Hypochromasia Present (Not Present); Microcytosis Present (Not Present)
--- NOTE | 2017-05-05 09:36 | Oncology Inp Consult Note ---
<Susie Goldman L - Last Filed: 05/05/17 17:20> Date of Encounter: 05/05/17 Time of Encounter: 09:36 Assessment and Plan (1) Pancytopenia Status: Chronic Assessment and plan: 1. Pancytopenia. WBC 0.8, neutrophils 0.3, no fevers. Platelets 97, no s/s bleeding. Macrocytic, hyperchromic anemia (prior to transfusion) hgb now 5.6 after receiving 2 of 4 units PRBC. Symptomatic upon presentation, currently asymptomatic and denies chest pain, SOB, headache or vertigo. Regular alcohol use and drinks 6-12 beers daily for past year. Smokes 1 ppd. Previous work up in January 2017: Revealed folic acid deficiency, she was discharged with 1 mg daily folate and says she has taken daily since discharge. SPEP normal, no monoclonal proteins. Iron high 292, ferritin elevated 476, B12 normal, blood smear benign and revealed Macrocytic anemia, most likely secondary to folate deficiency, no hypersegmented neutrophils seen, Leukopenia which may be secondary to folate deficiency. Abdomen US with no mention of splenomagaly/hepatomegaly. Macrocytic anemia, progressively declining since January, this may be multifactorial and secondary to direct toxic effects of alcohol and folate/ nutritional deficiency although bone marrow disorder cannot be ruled out given the degree of pancytopenia. Neutropenia and Thrombocytopenia also progressive since January. Dr. Fontanez discussed laboratory findings concerning for bone marrow dysplasia. Patient is agreeable to bone marrow biopsy which will be ordered for tomorrow. Iron overload likely due to alcohol ingestion. Further laboratory work up: check current Iron, Ferritin, B12, folate, TSH. Obtain LDH, haptoglobin, blood smear, copper, ceruloplasmin and reticulocyte count. Please refer to Dr. Fontanez's attestation below, attending oncologist/altitude chamber technician , for further details. - Data of Consult Patient: new to practice Consult date: 05/05/17 Requesting Physician: Nasir Tinsley MD Primary Care Provider: Danii Berg MD - Consult Narrative Reason for consult: Pancytopenia History of present illness: Ms. Paul is a 47 year old female with past medical history significant for anemia, GERD, anxiety, depression, alcohol and tobacco abuse, pancreatitis, cholelithiasis who presented to the ER for evaluation worsening generalized weakness, abdominal pain and shortness of breath. She had a prior hospitalization in January with similar symptoms and pancreatitis. Lab data in ER reveals hgb 3.8 (now 5.6), WBC 0.8, neutrophils 0.3, platelets 97. Stool occult blood negative. No fevers since admission, patient reports chills due to recent cold and congestion, did not check temperature. Prior to recent illness she denies fever, chills any s/s of bleeding or unintended weight loss. She reports night sweats related to hot flashes since her hysterectomy. She relates every day alcohol use of 6-12 beers daily over the past year, along with alcohol use since the age of 20 although heavy at times, not regular. Smokes 1 ppd. Oncology consulted for pancytopenia. Past Med Surg Social Fam HX - Past Medical History Medical history: GERD, other Psychiatric history: anxiety, depression - Past Surgical History Surgical History: orthopedic, other, JERALD/BSO, other - Social History Smoking Status: Current every day smoker Smokeless Tobacco Status: No Alcohol use: occasionally, recent Drug use: none - Family History Father Hx Family Cardiac Disorders: Yes Hx Family Cancer: Yes (Breast cancer) Medications and Allergies Furosemide [Lasix] 20 mg PO 2XW 02/03/17 [History] Gabapentin [Neurontin] 300 mg PO DAILY 02/03/17 [History] Ibuprofen [Motrin] 800 mg PO Q8H PRN 02/03/17 [History] Methocarbamol [Robaxin] 750 mg PO Q6-8H 02/03/17 [History] Potassium Chloride 20 meq PO DAILY 02/03/17 [History] Propranolol HCl 40 mg PO TID 02/03/17 [History] Folic Acid 1 mg PO DAILY #30 tablet 02/07/17 [Rx] Cholecalciferol (Vitamin D3) [Vitamin D3] 5,000 unit PO DAILY 05/04/17 [History] 3 Allergy/AdvReac Type Severity Reaction Status Date / Time celecoxib [From Celebrex] Allergy Hives Verified 10/08/16 13:49 Penicillins Allergy Hives Verified 10/08/16 13:49 Constitutional: Present: fatigue, malaise, weakness. Absent: anorexia, fever(s) , frequent falls, headache(s), night sweats, weight loss Eyes: Absent: change in vision Nose, mouth and throat: Present: nasal congestion, sinus pressure, sore throat Cardiovascular: Absent: chest pain, palpitations Respiratory: Present: cough, chest congestion. Absent: hemoptysis Gastrointestinal: Absent: abdominal pain, coffee ground emesis, diarrhea, hematemesis, hematochezia, melena, nausea, vomiting Genitourinary: Absent: dysuria ( ), hematuria Musculoskeletal: Present: muscle cramps, muscle weakness. Absent: numbness, tingling Integumentary: Absent: wounds Neurological: Absent: confusion, vertigo Hematologic/Lymphatic: Absent: easy bleeding, lymphadenopathy Oncology - Exam - Constitutional Vitals: Temp Pulse Resp BP Pulse Ox 98.2 F 78 20 96/59 98 05/05/17 06:56 05/05/17 08:10 05/05/17 06:56 05/05/17 06:56 05/05/17 06:56 General appearance: cooperative, no acute distress, no febrile - Head Head exam: Present: atraumatic - Respiratory Respiratory exam: Present: decreased breath sounds, wheezes - Cardiovascular Cardiovascular exam: Present: RRR, +S1, +S2 - GI/Abdominal GI/Abdominal exam: Present: normal bowel sounds, soft, tenderness Additional comments: RUQ tenderness - Extremities Exam Extremities exam: Absent: calf tenderness, pedal edema - Expanded Lower Extremity Exam Lower Leg exam: Absent: swelling - Neurological Exam Neurological exam: Present: alert, oriented X3, strengths equal and symetr throughout. Absent: no focal deficits, facial droop - Psychiatric Psychiatric exam: Present: flat affect - Skin Additional comments: facial flushing Oncology - Results Labs: Short CBC 05/05/17 Range/Units 07:53 WBC 0.8 L* (4.3-11.1) K/mcL Hgb 5.6 L* D (11.5-15.4) g/dL Hct 16.2 L (35.3-44.9) % Plt Count 97 L (140-400) K/mcL Neutrophils # 0.2 L (1.6-8.9) K/mcL BMP 05/05/17 07:53 Sodium 134 L Potassium 3.2 L Chloride 106 Carbon Dioxide 19 L BUN 5 L Creatinine 0.26 L Glucose 145 H Calcium 8.2 L Consult Discharge Plan - Plan Referrals: Danii Berg MD [Primary Care Provider] - 05/14/17 2:50 pm () <Estee,Ramin S - Last Filed: 05/05/17 21:56> Date of Encounter: 05/05/17 - Data of Consult Requesting Physician: Nasir Tinsley MD Primary Care Provider: Danii Berg MD - Consult Narrative History of present illness: Ms. Paul is a 47 year old female Oncology - Exam - Constitutional Vitals: Temp Pulse Resp BP Pulse Ox 99.0 F 78 18 116/72 98 05/05/17 19:43 05/05/17 19:43 05/05/17 19:43 05/05/17 19:43 05/05/17 19:43 Oncology - Results Labs: Short CBC 05/05/17 05/05/17 Range/Units 07:53 17:54 WBC 0.8 L* (4.3-11.1) K/mcL Hgb 5.6 L* D 8.3 L D (11.5-15.4) g/dL Hct 16.2 L 24.8 L (35.3-44.9) % Plt Count 97 L (140-400) K/mcL Neutrophils # 0.2 L (1.6-8.9) K/mcL BMP 05/05/17 07:53 Sodium 134 L Potassium 3.2 L Chloride 106 Carbon Dioxide 19 L BUN 5 L Creatinine 0.26 L Glucose 145 H Calcium 8.2 L - Attending Attestation I examined this patient and my medical decision-making was reviewed with the Advanced Practice Nurse. I agree with the documented findings, disposition and treatment plan as described except to the extent set forth below. Ms. Paul has significant pancytopenia with macrocytic red cell indices. B12 level returned low, although this was normal in January making this an unlikely etiology but is a possibilty. Will assess for copper deficiency as well. It is my gestault this is ETOH related, although an underlying myeloproliferative or leukemia is also a distinct possibility. Exam is unremarkable. We have arranged for BM biopsy tomorrow with FISH and cytogenetics tomorrow.
[2017-05-05] MEDS ORDERED: 0.9 % Sodium Chloride Mini Bag 100 ML ONE (09:47)
--- NOTE | 2017-05-05 11:14 | Electrocardiograph Report ---
[address] [address] Test Date: 2017-05-04 Pat Name: Annette Paul Department: 102 Room: 2N03 Gender: F Alcoholism Worker: Ekp : 1970 Requested By: Galen Pruett Order Number: [id number] Reading MD: Jakob Long MD Measurements Intervals [place] Rate: 64 P: -1 MO: 184 QRS: 53 QRSD: 92 T: 0 QT: 425 QTc: 435 Interpretive Statements SINUS RHYTHM WITH SINUS ARRHYTHMIA BASELINE ARTIFACT Electronically Signed On 05-05-2017 11:12:41 EST by Jakob Long MD
[2017-05-05 13:18] LABS: Immature Reticulocyte % 4.5 % (11.0-38.0); Retculocyte # 0.02 M/mcL (0.05-0.10)
[2017-05-05 13:45] LABS: Thyroid Stimulating Hormone 5.269 mcIU/mL (0.340-5.600)
[2017-05-05 13:57] LABS: Vitamin B12 172 pg/mL (250-1100)
[2017-05-05] MEDS ORDERED: 0.9 % Sodium Chloride 250 ML ONE (14:11)
[2017-05-05 15:10] LABS: Folate > 44.6 ng/mL (3.0-16.0)
[2017-05-05 18:13] LABS: Hematocrit 24.8 % (35.3-44.9)
[2017-05-05 18:14] LABS: Hemoglobin 8.3 g/dL (11.5-15.4)
[2017-05-05] MEDS ORDERED: GuaiFENesin/Dextromethorphan TABLET PO PRN (18:26)
--- NOTE | 2017-05-05 20:02 | Event Note ---
Date of Encounter: 05/05/17 Time of Encounter: 11:00 Patient presented to the hospital due to weakness and shortness of breath. She was found to be pancytopenic with hemoglobin of 3.8. She was given 2 units of PRBC and admitted for further care. She reports that her weakness has improved slightly today. On exam she is in no acute distress, awake, oriented. Heart is regular. Lungs are clear. Plan: Transfuse a total of 2 units PRBC. Check hemoglobin and hematocrit posttransfusion. Consult oncology for workup of pancytopenia.
[2017-05-05] MEDS: Cyanocobalamin (B-12) 1,000 MCG/ML VIAL SQ SCH (21:04)
[2017-05-06] MEDS: Methocarbamol 750 MG TABLET PO SCH ×3 (02:07→17:21)
[2017-05-06 06:10] LABS: Eosinophils % 2.7 %; Hematocrit 24.6 % (35.3-44.9); Hemoglobin 8.4 g/dL (11.5-15.4); Immature Granulocytes % 0.7 % (0-4); Lymphocytes % 56.4 %; Mean Corpuscular HGB Conc 34.1 g/dL (31.6-35.5); Mean Corpuscular Hemoglobin 31.2 pg (28.0-33.3); Mean Corpuscular Volume 91.4 fL (83.0-100.0); Mean Platelet Volume 10.6 fL (9.4-12.4); Monocytes # 0.3 K/mcL (0.0-1.3); Monocytes % 18.8 %; Neutrophils # 0.3 K/mcL (1.6-8.9); Platelet Count 109 K/mcL (140-400); Red Blood Count 2.69 M/mcL (3.82-4.97); Red Cell Distribution Width 16.5 % (11.5-14.5); Segmented Neutrophils % 19.4 %
[2017-05-06 06:14] LABS: Lymphocytes # 0.9 K/mcL (0.6-4.6)
[2017-05-06 06:23] LABS: BUN/Creatinine Ratio 14 (6-26); Blood Urea Nitrogen 5 mg/dL (6-20); Calcium 8.5 mg/dL (8.6-10.3); Carbon Dioxide 27 mEq/L (23-29); Chloride 106 mEq/L (98-107); Glucose 89 mg/dL (70-105); Osmolality,Calculated 283 (280-300); Potassium 2.8 mEq/L (3.5-5.1); Sodium 138 mEq/L (136-145); eGFR For African Americans > 60 (> 60); eGFR For Non-African Americans > 60 (> 60)
[2017-05-06 06:40] LABS: Anisocytosis 1+ (Not Present); Hypochromasia Present (Not Present); Large Platelets Present (Not Present); Platelet Estimate Decreased (Normal)
--- NOTE | 2017-05-06 08:15 | Internal Med Progress Note ---
Date of Encounter: 05/06/17 Time of Encounter: 08:11 - Assessment and plan (1) Anemia Current Visit: No Status: Acute Assessment and plan: Reported history of Macrocytic anemia with Folate deficiency s/p EGD and colonoscopy in with no acute bleeding reported Stool occult negative Pt to receive 4unit PRBC transfusion, improved Hematology evaluation appreciated, they are planning doing bone marrow biopsy today. continue to closely monitor H&H continue home dose of folate Patient also has history of chronic alcohol abuse and splenomegaly Qualifiers: Anemia type: folate deficiency Folate deficiency anemia type: dietary Qualified Code(s): D52.0 - Dietary folate deficiency anemia (2) Abdominal pain Current Visit: No Status: Acute Assessment and plan: Patient has on and off right upper quadrant pain for last few months, pain spasmatic 8 out of 10 associated with nausea. She has tenderness to the right upper quadrant drain. Ultrasound shows possible acute on chronic cholecystitis. We will consult surgery Qualifiers: Abdominal location: right upper quadrant Qualified Code(s): R10.11 - Right upper quadrant pain (3) Gallstones without obstruction of gallbladder Current Visit: Yes Status: Acute Assessment and plan: We will do a HIDA scan consult the surgery Qualifiers: Cholelithiasis location: gallbladder Cholecystitis presence: with cholecystitis Cholecystitis acuity: acute and chronic Qualified Code(s): K80.12 - Calculus of gallbladder with acute and chronic cholecystitis without obstruction (4) Pancytopenia Current Visit: No Status: Chronic Assessment and plan: Multifactorial due to alcoholism and possible bone marrow displasia. 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 will do bone marrow biopsy today (5) Chronic alcohol use Current Visit: No Status: Chronic Assessment and plan: She denies alcohol withdrawal. We will place Ativan as needed continue thiamine and folic acid (6) Weakness Current Visit: Yes Status: Acute Assessment and plan: From severe anemia improved we will consult physical therapy (7) Tobacco abuse Current Visit: Yes Status: Acute Assessment and plan: Smoking cessation discussed, patient declined nicotine patch. - Time Spent With Patient Greater than 35 minutes - Subjective Interval history: Ms. Paul is a 47 year old female with PMH of macrocytic anemia, GERD, anxiety, depression, alcohol and tobacco abuse, pancreatitis, cholelithiasis who presented to the ER for evaluation worsening generalized weakness and shortness of breath. Upon arrival to the ER she was found to have Hgb of 3.8. She also reported of having a few beers prior to her arrival to the ER. She reported of drinking 8-12beers daily for the last year. Pt was admitted in January for the same presentation and underwent EGD/Colonoscopy which was negative for any acute bleeds. She also complained of RUQ pain which is the same as her last hospitalization. At that time, no surgical intervention was recommended. She denied any fever or chills, however reports of having a cold for the last two weeks. Patient was admitted on May 05 for severe anemia. Her hemoglobin improved, she continues complaining of right upper quadrant abdominal pain and a dry cough. Right upper quadrant ultrasound showed thickened gallbladder wall and multiple stones. Concerning for possible acute cholecystitis. I will consult surgery. - Constitutional Vitals: Temp Pulse Resp BP Pulse Ox 99.5 F 90 20 135/88 95 05/06/17 07:33 05/06/17 07:33 05/06/17 07:33 05/06/17 07:33 05/06/17 07:33 General appearance: Present: disheveled, A&O X 3, no acute distress, answers questions appropriately Exam: CONSTITUTIONAL: patient appears as an age appropriate female in no acute distress. EYES Clear sclerae, bilateral pupils are equal, reactive to light. EMOI. RESPIRATORY: No accessory muscle use, bilateral clear to auscultation, no wheezing, no crackles/rales. CARDIOVASCULAR: Regular heart rate, normal S1 and S2, no murmurs GASTROINTESTINAL: bowel sounds present, soft, right upper quadrant tenderness. MUSCULOSKELETAL: Joints in normal range of motion, no clubbing, no edema, no cyanosis. Bilateral peripheral pulses 2+. NEUROLOGIC: CN II to XII are grossly intact, no focal neurological deficit. Internal Medicine: Result - Labs CBC & Chem 7: 05/06/17 05:45 05/06/17 05:45 Labs: Short CBC 05/05/17 05/05/17 05/06/17 Range/Units 07:53 17:54 05:45 WBC 0.8 L* 1.5 L D (4.3-11.1) K/mcL Hgb 5.6 L* D 8.3 L D 8.4 L (11.5-15.4) g/dL Hct 16.2 L 24.8 L 24.6 L (35.3-44.9) % Plt Count 97 L 109 L (140-400) K/mcL Neutrophils # 0.2 L 0.3 L (1.6-8.9) K/mcL BMP 05/05/17 05/06/17 07:53 05:45 Sodium 134 L 138 Potassium 3.2 L 2.8 L Chloride 106 106 Carbon Dioxide 19 L 27 BUN 5 L 5 L Creatinine 0.26 L 0.35 L Glucose 145 H 89 Calcium 8.2 L 8.5 L - Impressions Impressions Gallbladder Ultrasound 05/05/17 08:30 IMPRESSION: Fatty infiltration of the liver. Thickened gallbladder wall with pericholecystic fluid and multiple stones seen within the gallbladder. This is concerning for possible acute cholecystitis. If further evaluation is needed, recommend HIDA scan. D/ / 05/05/2017 09:58:04 Neftaly Bush MD / [email or web address] Interpreting Provider: Neftaly Bush MD - VTE Documentation of Mechanical Device: Intermittent pneumatic compression device Consult Discharge Plan - Plan Referrals: Danii Berg MD [Primary Care Provider] - 05/14/17 2:50 pm ()
[2017-05-06] MEDS: Folic Acid 1 MG TABLET PO SCH (08:29)
[2017-05-06] MEDS: Thiamine (B-1) 100 MG TABLET PO SCH (08:29)
[2017-05-06] MEDS: Cholecalciferol (D-3) 1,000 UNIT TABLET PO SCH (08:29)
[2017-05-06] MEDS: Gabapentin 300 MG CAPSULE PO SCH (08:29)
[2017-05-06] MEDS ORDERED: Potassium Chloride 40 MEQ, Lidocaine 1% 2 ML in D5% in Water 500 ML IVPB ONE (08:30)
[2017-05-06] MEDS: *HR* HYDROcodone/Acet 5/325 mg TABLET PO PRN ×2 (08:30→17:21)
[2017-05-06] MEDS: Cyanocobalamin (B-12) 1,000 MCG/ML VIAL SQ SCH (08:30)
[2017-05-06 12:02] LABS: INR 1.2; Prothrombin Time 12.5 Seconds (9.4-12.1)
--- NOTE | 2017-05-06 12:59 | Oncology Inp Progress Note ---
<Susie Goldman L - Last Filed: 05/06/17 18:02> Date of Encounter: 05/06/17 Time of Encounter: 12:59 (1) Pancytopenia Current Visit: No Status: Chronic Assessment and plan: 1. Pancytopenia, progressive since January, now severe. No fevers, no s/s bleeding. Macrocytic, hyperchromic anemia (prior to transfusion). Blood counts stable if not slightly improving, Hgb stable 8.4, WBC improved 1.5 , Plt 109, Neutrophils 0.3 Regular alcohol use and drinks 6-12 beers daily for past year. Smokes 1 ppd. Previous work up in January 2017: Revealed folic acid deficiency, she was discharged with 1 mg daily folate and says she has taken daily since discharge. SPEP normal, no monoclonal proteins. Iron high 292, ferritin elevated 476, B12 normal, blood smear benign and revealed Macrocytic anemia, most likely secondary to folate deficiency, no hypersegmented neutrophils seen, Leukopenia which may be secondary to folate deficiency. Abdomen US with no mention of splenomagaly/hepatomegaly. Pancytopenia may be multifactorial and secondary to direct toxic effects of alcohol and folate/B12/nutritional deficiency although bone marrow disorder cannot be ruled out given the degree of pancytopenia. Laboratory findings concerning for underlying bone marrow myeloproliferative disorder/leukemia. She had BM biopsy earlier today and tolerated procedure well. She will have a follow up arranged with Dr. Fontanez on outpatient basis for further monitoring and to discuss BM biopsy results. Current laboratory work up: Iron and Ferritin elevated, B12 low 172 she has started B12 SQ 1000 mcg daily, folate high (on oral folate), TSH normal, LDH low , haptoglobin normal, retic count normal; blood smear, copper, and ceruloplasmin pending. Iron overload likely due to alcohol ingestion. Please refer to Dr. Fontanez's attestation below, attending oncologist/warp tier , for further details. Oncology: Subj Interval history: Ms. Paul relates some back pain which she attributes to laying in bed. I encouraged her to ambulate and sit up in chair, she states she has only really been getting out of bed to use the bathroom. She denies chest pain, SOB, H/A or vertigo. Some lightheadedness with standing. Cold symptoms continue with cough and congestion. - Constitutional Vitals: Vital Signs Temp Pulse Resp BP Pulse Ox 05/06/17 11:46 98.6 F 76 16 116/78 93 05/06/17 11:33 98.3 F 58 15 107/70 93 05/06/17 08:30 75 95 05/06/17 07:33 99.5 F 90 20 135/88 95 05/06/17 04:12 98.6 F 82 18 126/88 98 05/05/17 23:49 98.3 F 68 17 113/66 98 05/05/17 19:43 99.0 F 78 18 116/72 98 05/05/17 16:45 98.8 F 69 18 118/78 97 05/05/17 16:44 98.8 F 61 18 118/78 99 05/05/17 14:30 98.1 F 95 18 93/55 94 05/05/17 14:15 98.2 F 77 18 105/61 100 Intake and Output 05/05/17 05/06/17 05/06/17 23:59 07:59 15:59 Intake Total 583 / 583 237 / 237 Output Total 600 / 600 200 / 200 Balance - - -200 / -200 237 / 237 Intake: Oral 240 / 240 237 / 237 Blood Product 343 / 343 Rbcs Leuko Poor As-1 Unit 343 / 343 [id number] Output: Urine 600 / 600 200 / 200 Other: Meal Lunch Percent of Meal Consumed 0% # Voids 1 1 Weight 65.8 kg Blood Glucose* 108 121 Patient Weight 05/06/17 23:59 Weight 65.8 kg General appearance: cooperative, no acute distress, no febrile - Head Head exam: Present: atraumatic - ENT ENT exam: Present: mucous membranes moist - Respiratory Respiratory exam: Present: decreased breath sounds, CTAB. Absent: respiratory distress - Cardiovascular Cardiovascular exam: Present: RRR, +S1, +S2 - GI/Abdominal GI/Abdominal exam: Present: normal bowel sounds, soft, tenderness - Extremities Exam Extremities exam: Absent: pedal edema - Neurological Exam Neurological exam: Present: alert, oriented X3, strengths equal and symetr throughout. Absent: no focal deficits, facial droop - Psychiatric Psychiatric exam: Present: flat affect - Skin Skin exam: Present: normal color, warm Additional comments: slight facial flushing noted to bridge of nose, bilat cheeks Oncology: Obj Data - Labs CBC & Chem 7: 05/06/17 05:45 05/06/17 05:45 - ABG Interpretation ABG results: PT/INR, D-dimer PT 12.5 Seconds (9.4-12.1) H 05/06/17 11:47 Consult Discharge Plan - Plan Referrals: Danii Berg MD [Primary Care Provider] - 05/14/17 2:50 pm () <Ramin Fontanez S - Last Filed: 05/06/17 20:56> Date of Encounter: 05/06/17 - Constitutional Vitals: Vital Signs Temp Pulse Resp BP Pulse Ox 05/06/17 19:48 98.5 F 74 17 125/99 94 05/06/17 17:20 74 141/97 94 05/06/17 17:00 61 130/96 05/06/17 16:30 63 136/100 05/06/17 16:15 64 127/75 05/06/17 16:00 77 133/89 96 05/06/17 15:51 98.9 F 61 18 139/81 98 05/06/17 15:46 67 136/89 98 05/06/17 15:25 65 139/99 98 05/06/17 15:01 83 14 148/105 98 05/06/17 14:55 70 14 115/65 100 05/06/17 11:46 98.6 F 76 16 116/78 93 05/06/17 11:33 98.3 F 58 15 107/70 93 05/06/17 08:30 75 95 05/06/17 07:33 99.5 F 90 20 135/88 95 05/06/17 04:12 98.6 F 82 18 126/88 98 05/05/17 23:49 98.3 F 68 17 113/66 98 Intake and Output 05/06/17 05/06/17 05/07/17 08:59 16:59 00:59 Intake Total 737 / 737 Output Total 200 / 200 100 / 100 Balance -200 / -200 737 / 737 -100 / -100 Intake: IV Fluids 500 / 500 KCl 40 MEQ Xylocaine 2 ML In 500 / 500 Dextrose 5% 500 ML @ 130.5 mls/ hr IVPB ONCE ONE Rx#:[id number] Oral 237 / 237 Output: Urine 200 / 200 100 / 100 Other: Meal Lunch Percent of Meal Consumed 0% Stool Size Small Small Stool Consistency loose loose Stool Color Brown Brown # Voids 1 2 # Bowel Movements 2 1 Weight 65.8 kg Blood Glucose* 108 107 Patient Weight 05/07/17 00:59 Weight 65.8 kg Oncology: Obj Data - Labs CBC & Chem 7: 05/06/17 05:45 05/06/17 05:45 Labs: Laboratory Results - last 24 hr 05/05/17 05/06/17 05/06/17 13:02 05:45 05:45 WBC 1.5 L D RBC 2.69 L Hgb 8.4 L Hct 24.6 L MCV 91.4 MCH 31.2 MCHC 34.1 RDW 16.5 H Plt Count 109 L MPV 10.6 Immature Gran % 0.7 Seg Neutrophils % 19.4 Lymphocytes % 56.4 Monocytes % 18.8 Eosinophils % 2.7 Basophils % 2.0 Neutrophils # 0.3 L Lymphocytes # 0.9 Monocytes # 0.3 Eosinophils # 0.0 Basophils # 0.0 Platelet Estimate Decreased L Large Platelets Present A Hypochromasia Present A Anisocytosis 1+ A Haptoglobin 93 PT INR Sodium 138 Potassium 2.8 L Chloride 106 Carbon Dioxide 27 BUN 5 L Creatinine 0.35 L Est GFR ( Amer) > 60 Est GFR (Non-Af Amer) > 60 BUN/Creatinine Ratio 14 Glucose 89 Calculated Osmolality 283 Calcium 8.5 L 05/06/17 11:47 WBC RBC Hgb Hct MCV MCH MCHC RDW Plt Count MPV Immature Gran % Seg Neutrophils % Lymphocytes % Monocytes % Eosinophils % Basophils % Neutrophils # Lymphocytes # Monocytes # Eosinophils # Basophils # Platelet Estimate Large Platelets Hypochromasia Anisocytosis Haptoglobin PT 12.5 H INR 1.2 Sodium Potassium Chloride Carbon Dioxide BUN Creatinine Est GFR ( Amer) Est GFR (Non-Af Amer) BUN/Creatinine Ratio Glucose Calculated Osmolality Calcium - Impressions Impressions Bone Biopsy 05/06/17 00:00 IMPRESSION: Successful fluoroscopic guided bone marrow biopsy and aspiration as above. D/ / Nathan Rodriguez MD / Nathan Rodriguez MD Interpreting Provider: Nathan Rodriguez MD - ABG Interpretation ABG results: PT/INR, D-dimer PT 12.5 Seconds (9.4-12.1) H 05/06/17 11:47 - Attending Attestation I examined this patient and my medical decision-making was reviewed with the Advanced Practice Nurse. I agree with the documented findings, disposition and treatment plan as described except to the extent set forth below. She is doing okay. Counts are stable. Exam is unremarkable. BM biopsy completed and results pending. Continue B12 for now. Anxious to return home. Ideally, would like to to see increase in WBC prior to d/c but not mandatory-could consider d/c in next day or two.
[2017-05-06] MEDS ORDERED: *HR* Midazolam HCl 2 MG/2 ML VIAL IVP ONE (14:40)
[2017-05-06] MEDS ORDERED: *HR* FentaNYL (PF) 100 MCG/2 ML VIAL IVP ONE (14:40)
[2017-05-06] MEDS ORDERED: 0.9 % Sodium Chloride 500 ML ONE (14:44)
--- NOTE | 2017-05-06 15:22 | IR Procedure Note ---
Date of procedure: 05/06/17 Consent Obtained: Verbal consent Timeout: Correct patient and procedure verified, Correct site verified, Time out performed, Skin prep completed Local anesthetic: Lidocaine 1% Indications: Pancytopenia Procedure Performed: BMBx Was there an family law legal assistant present: No Site/Technique: Right posterior iliac bone Results/Findings: Good core and aspirate Estimated blood loss (cc): 10 Complications: None; Tolerated procedure well Post Procedure Treatment Plan: Monitoring in pts room Specimen: To lab
[2017-05-06] MEDS ORDERED: GuaiFENesin Liq 200 MG/10 ML UDC PO PRN (19:25)
[2017-05-06] MEDS: *HR* HYDROmorphone (PF) 1 MG/ML SYRINGE IVP PRN (21:18)
[2017-05-07] MEDS: *HR* HYDROcodone/Acet 5/325 mg TABLET PO PRN ×3 (00:08→21:36)
[2017-05-07] MEDS: Methocarbamol 750 MG TABLET PO SCH ×3 (00:08→17:15)
[2017-05-07 04:36] LABS: Basophils % 1.4 %; Eosinophils # 0.1 K/mcL (0.0-0.6); Eosinophils % 4.9 %
[2017-05-07 04:38] LABS: Hematocrit 24.6 % (35.3-44.9); Hemoglobin 8.1 g/dL (11.5-15.4); Lymphocytes # 0.8 K/mcL (0.6-4.6); Lymphocytes % 54.2 %; Mean Corpuscular HGB Conc 32.9 g/dL (31.6-35.5); Mean Corpuscular Hemoglobin 31.2 pg (28.0-33.3); Mean Corpuscular Volume 94.6 fL (83.0-100.0); Mean Platelet Volume 10.9 fL (9.4-12.4); Monocytes # 0.3 K/mcL (0.0-1.3); Monocytes % 21.1 %; Neutrophils # 0.3 K/mcL (1.6-8.9); Platelet Count 108 K/mcL (140-400); Red Cell Distribution Width 16.2 % (11.5-14.5); Segmented Neutrophils % 18.4 %
[2017-05-07 05:11] LABS: Anisocytosis 1+ (Not Present); Macrocytosis Present (Not Present); Platelet Estimate Decreased (Normal)
[2017-05-07 05:19] LABS: BUN/Creatinine Ratio 13 (6-26); Blood Urea Nitrogen 4 mg/dL (6-20); Calcium 8.7 mg/dL (8.6-10.3); Carbon Dioxide 25 mEq/L (23-29); Chloride 108 mEq/L (98-107); Glucose 85 mg/dL (70-105); Magnesium 1.5 mg/dL (1.6-2.6); Osmolality,Calculated 278 (280-300); Potassium 3.9 mEq/L (3.5-5.1); Sodium 136 mEq/L (136-145); eGFR For African Americans > 60 (> 60); eGFR For Non-African Americans > 60 (> 60)
[2017-05-07] MEDS ORDERED: Furosemide 20 MG TABLET PO SCH (09:00)
--- NOTE | 2017-05-07 10:49 | Oncology Inp Progress Note ---
Date of Encounter: 05/07/17 Time of Encounter: 10:49 (1) Pancytopenia Current Visit: No Status: Chronic Assessment and plan: 1. Pancytopenia, progressive since January, now severe. Her blood counts continue to remain stable. Pancytopenia may be multifactorial and secondary to direct toxic effects of alcohol and folate/B12/nutritional deficiency although bone marrow disorder cannot be ruled out given the degree of pancytopenia. Laboratory findings concerning for underlying bone marrow myeloproliferative disorder/leukemia. She had BM biopsy yesterday and tolerated procedure well, reports aching pain to area today. She was given an appointment card today to follow up with Dr. Fontanez on outpatient basis for further monitoring and to discuss BM biopsy results. I also put in an ambulatory order for a CBC for middle of next week to monitor her blood counts. She continues SQ B12 injections and oral folic acid replacement. Blood smear did not show clear etiology of pancytopenia, no blasts, copper and ceruloplasmin pending. Iron overload likely due to alcohol ingestion. Currently undergoing workup for gallstones/acute on chronic cholecystitis, oncology would recommend against pursuing surgical intervention pending her bone marrow biopsy results/resolution of pancytopenia. Please refer to Dr. 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 Oncology: Subj Interval history: Ms. Lazo is feeling ok this morning, she reports some back pain and aching to sight of bone marrow biopsy. She has not ambulated much during her stay and I encouraged her to ambulate and sit in chair. She denies chest pain, SOB, N/V/D , H/A, vertigo or any s/s bleeding. Denies any s/s related to alcohol withdrawal - Constitutional Vitals: Vital Signs Temp Pulse Resp BP Pulse Ox 05/07/17 10:42 98.8 F 88 20 135/107 95 05/07/17 07:53 80 05/07/17 07:50 80 20 95 05/07/17 07:45 95 05/07/17 07:18 98.4 F 77 20 117/83 94 05/07/17 04:02 98.4 F 71 16 128/94 95 05/07/17 01:03 98.3 F 71 16 120/88 95 05/06/17 19:48 98.5 F 74 17 125/99 94 05/06/17 17:20 74 141/97 94 05/06/17 17:00 61 130/96 05/06/17 16:30 63 136/100 05/06/17 16:15 64 127/75 05/06/17 16:00 77 133/89 96 05/06/17 15:51 98.9 F 61 18 139/81 98 05/06/17 15:46 67 136/89 98 05/06/17 15:25 65 139/99 98 05/06/17 15:01 83 14 148/105 98 05/06/17 14:55 70 14 115/65 100 05/06/17 11:46 98.6 F 76 16 116/78 93 05/06/17 11:33 98.3 F 58 15 107/70 93 Intake and Output 05/06/17 05/07/17 05/07/17 23:59 07:59 15:59 Intake Total 0 / 0 Output Total 100 / 100 Balance -100 / -100 0 / 0 Intake: Oral 0 / 0 Output: Urine 100 / 100 Other: Stool Size Small Stool Consistency loose Stool Color Brown # Bowel Movements 1 Weight 66.5 kg Patient Weight 05/07/17 23:59 Weight 66.5 kg General appearance: cooperative, no acute distress, no febrile - Head Head exam: Present: atraumatic - Respiratory Respiratory exam: Present: decreased breath sounds, CTAB - Cardiovascular Cardiovascular exam: Present: rubs, +S1, +S2 - GI/Abdominal GI/Abdominal exam: Present: normal bowel sounds, soft, tenderness - Extremities Exam Extremities exam: Absent: calf tenderness, pedal edema - Neurological Exam Neurological exam: Present: alert, oriented X3, strengths equal and symetr throughout. Absent: no focal deficits - Psychiatric Psychiatric exam: Present: flat affect - Skin Skin exam: Present: normal color, warm Oncology: Obj Data - Labs CBC & Chem 7: 05/07/17 04:10 05/07/17 04:10 - Impressions Impressions Bone Biopsy 05/06/17 00:00 IMPRESSION: Successful fluoroscopic guided bone marrow biopsy and aspiration as above. D/ / Nathan Rodriguez MD / Nathan Rodriguez MD Interpreting Provider: Nathan Rodriguez MD Liver Scan Nuclear Medicine 05/07/17 08:00 IMPRESSION: No convincing scintigraphic evidence of acute cholecystitis. Normal gallbladder ejection fraction. D/ / Nathan Rodriguez MD / Nathan Rodriguez MD Interpreting Provider: Nathan Rodriguez MD - ABG Interpretation ABG results: PT/INR, D-dimer PT 12.5 Seconds (9.4-12.1) H 05/06/17 11:47 Consult Discharge Plan - Plan Referrals: Danii Berg MD [Primary Care Provider] - 05/14/17 2:50 pm ()
[2017-05-07] MEDS: Cyanocobalamin (B-12) 1,000 MCG/ML VIAL SQ SCH (10:53)
[2017-05-07] MEDS: *HR* HYDROmorphone (PF) 1 MG/ML SYRINGE IVP PRN ×2 (10:53→15:57)
[2017-05-07] MEDS: Cholecalciferol (D-3) 1,000 UNIT TABLET PO SCH (10:54)
[2017-05-07] MEDS: Gabapentin 300 MG CAPSULE PO SCH (10:54)
[2017-05-07] MEDS: Thiamine (B-1) 100 MG TABLET PO SCH (10:55)
[2017-05-07] MEDS: Folic Acid 1 MG TABLET PO SCH (10:55)
--- NOTE | 2017-05-07 14:14 | Internal Med Progress Note ---
Date of Encounter: 05/07/17 Time of Encounter: 14:09 - Assessment and plan (1) Anemia Current Visit: No Status: Acute Assessment and plan: Reported history of Macrocytic anemia with Folate deficiency s/p EGD and colonoscopy in with no acute bleeding reported Stool occult negative Pt to receive 4unit PRBC transfusion, improved Hematology evaluation appreciated, bone marrow biopsy on 05/06. she is going to follow up with Dr fontanez continue to closely monitor H&H continue home dose of folate Patient also has history of chronic alcohol abuse and splenomegaly Qualifiers: Anemia type: folate deficiency Folate deficiency anemia type: dietary Qualified Code(s): D52.0 - Dietary folate deficiency anemia (2) Abdominal pain Current Visit: No Status: Acute Assessment and plan: Patient has on and off right upper quadrant pain for last few months, pain spasmatic 8 out of 10 associated with nausea. She has tenderness to the right upper quadrant drain. Ultrasound shows possible acute on chronic cholecystitis. HIDA did not showed acute cholecystitis. We will consult surgery, I spoke to Dr Holguin. Qualifiers: Abdominal location: right upper quadrant Qualified Code(s): R10.11 - Right upper quadrant pain (3) Gallstones without obstruction of gallbladder Current Visit: Yes Status: Acute Assessment and plan: follow up with Dr holguin aas outpatient Qualifiers: Cholelithiasis location: gallbladder Cholecystitis presence: with cholecystitis Cholecystitis acuity: acute and chronic Qualified Code(s): K80.12 - Calculus of gallbladder with acute and chronic cholecystitis without obstruction (4) Pancytopenia Current Visit: No Status: Chronic Assessment and plan: Multifactorial due to alcoholism and possible bone marrow displasia. 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 Laboratory findings concerning for underlying bone marrow myeloproliferative disorder/leukemia. She had BM biopsy on 05/06 and tolerated procedure well, patient is going to follow up with Dr. Fontanez on outpatient basis for further monitoring and to discuss BM biopsy results. continues SQ B12 injections and oral folic acid replacement. (5) Chronic alcohol use Current Visit: No Status: Chronic Assessment and plan: She denies alcohol withdrawal. We will place Ativan as needed continue thiamine and folic acid (6) Weakness Current Visit: Yes Status: Acute Assessment and plan: From severe anemia improved we will consult physical therapy (7) Tobacco abuse Current Visit: Yes Status: Acute Assessment and plan: Smoking cessation discussed, patient declined nicotine patch. - Time Spent With Patient 25 - 35 minutes - Subjective Interval history: Ms. Paul is a 47 year old female with PMH of macrocytic anemia, GERD, anxiety, depression, alcohol and tobacco abuse, pancreatitis, cholelithiasis who presented to the ER for evaluation worsening generalized weakness and shortness of breath. Upon arrival to the ER she was found to have Hgb of 3.8. She also reported of having a few beers prior to her arrival to the ER. She reported of drinking 8-12beers daily for the last year. Pt was admitted in January for the same presentation and underwent EGD/Colonoscopy which was negative for any acute bleeds. She also complained of RUQ pain which is the same as her last hospitalization. At that time, no surgical intervention was recommended. She denied any fever or chills, however reports of having a cold for the last two weeks. Patient was admitted on May 05 for severe anemia. Her hemoglobin improved, she continues complaining of right upper quadrant abdominal pain and a dry cough. Right upper quadrant ultrasound showed thickened gallbladder wall and multiple stones. Concerning for possible acute cholecystitis. HIDA did not show acute cholecystitis. i spoke with Dr Ang, he will see the patient and give alejandro - Constitutional Vitals: Temp Pulse Resp BP Pulse Ox 98.7 F 81 18 122/85 96 05/07/17 11:19 05/07/17 11:19 05/07/17 11:19 05/07/17 11:19 05/07/17 11:19 General appearance: Present: disheveled, A&O X 3, no acute distress, answers questions appropriately Exam: CONSTITUTIONAL: patient appears as an age appropriate female in no acute distress. EYES Clear sclerae, bilateral pupils are equal, reactive to light. EMOI. RESPIRATORY: No accessory muscle use, bilateral clear to auscultation, no wheezing, no crackles/rales. CARDIOVASCULAR: Regular heart rate, normal S1 and S2, no murmurs GASTROINTESTINAL: bowel sounds present, soft, no tenderness. MUSCULOSKELETAL: Joints in normal range of motion, no clubbing, no edema, no cyanosis. Bilateral peripheral pulses 2+. NEUROLOGIC: CN II to XII are grossly intact, no focal neurological deficit. Internal Medicine: Result - Labs CBC & Chem 7: 05/07/17 04:10 05/07/17 04:10 Labs: Short CBC 05/07/17 Range/Units 04:10 WBC 1.4 L (4.3-11.1) K/mcL Hgb 8.1 L (11.5-15.4) g/dL Hct 24.6 L (35.3-44.9) % Plt Count 108 L (140-400) K/mcL Neutrophils # 0.3 L (1.6-8.9) K/mcL BMP 05/07/17 04:10 Sodium 136 Potassium 3.9 D Chloride 108 H Carbon Dioxide 25 BUN 4 L Creatinine 0.31 L Glucose 85 Calcium 8.7 - ABG Interpretation ABG results: PT/INR, D-dimer PT 12.5 Seconds (9.4-12.1) H 05/06/17 11:47 - Impressions Impressions Bone Biopsy 05/06/17 00:00 IMPRESSION: Successful fluoroscopic guided bone marrow biopsy and aspiration as above. D/ / Nathan Rodriguez MD / Nathan Rodriguez MD Interpreting Provider: Nathan Rodriguez MD Liver Scan Nuclear Medicine 05/07/17 08:00 IMPRESSION: No convincing scintigraphic evidence of acute cholecystitis. Normal gallbladder ejection fraction. D/ / Nathan Rodriguez MD / Nathan Rodriguez MD Interpreting Provider: Nathan Rodriguez MD - VTE Documentation of Mechanical Device: Intermittent pneumatic compression device Consult Discharge Plan - Plan Referrals: Danii Berg MD [Primary Care Provider] - 05/14/17 2:50 pm ()
[2017-05-08] MEDS: Methocarbamol 750 MG TABLET PO SCH ×2 (00:20→07:58)
[2017-05-08] MEDS: *HR* HYDROmorphone (PF) 1 MG/ML SYRINGE IVP PRN (02:27)
[2017-05-08] MEDS: *HR* HYDROcodone/Acet 5/325 mg TABLET PO PRN (04:15)
[2017-05-08 07:34] VITALS: BP 110/79
[2017-05-08] MEDS: Gabapentin 300 MG CAPSULE PO SCH (07:58)
[2017-05-08] MEDS: Cholecalciferol (D-3) 1,000 UNIT TABLET PO SCH (07:58)
[2017-05-08] MEDS: Thiamine (B-1) 100 MG TABLET PO SCH (07:58)
[2017-05-08] MEDS: Cyanocobalamin (B-12) 1,000 MCG/ML VIAL SQ SCH (07:59)
[2017-05-08] MEDS: Folic Acid 1 MG TABLET PO SCH (07:59)
--- NOTE | 2017-05-08 08:36 | Discharge Summary ---
Date of Encounter: 05/08/17 Time of Encounter: 08:32 - Discharge Diagnosis (1) Anemia Priority: Primary Status: Resolved Qualifiers: Anemia type: folate deficiency Folate deficiency anemia type: dietary Qualified Code(s): D52.0 - Dietary folate deficiency anemia (2) Abdominal pain Priority: Secondary Status: Resolved Comments: Likely from bilary ,colic, HIDA is negative for acute cholecystitis Qualifiers: Abdominal location: right upper quadrant Qualified Code(s): R10.11 - Right upper quadrant pain (3) Gallstones without obstruction of gallbladder Priority: Secondary Status: Chronic Comments: discussed with Dr patel, he recommended outpatient follow up, since hematology wants to hold procedure Qualifiers: Cholelithiasis location: gallbladder Cholecystitis presence: with cholecystitis Cholecystitis acuity: acute and chronic Qualified Code(s): K80.12 - Calculus of gallbladder with acute and chronic cholecystitis without obstruction (4) Pancytopenia Priority: Secondary Status: Chronic (5) Chronic alcohol use Priority: Secondary Status: Chronic (6) Weakness Priority: Secondary Status: Resolved (7) Tobacco abuse Priority: Secondary Status: Chronic - Discharge Medications Prescriptions: Cyanocobalamin (B-12) [Vitamin B12] 1,000 mcg SQ DAILY 30 Days #30 vial Folic Acid 1 mg PO DAILY #30 tablet Thiamine (B-1) [Vitamin B-1] 100 mg PO DAILY 30 Days #30 tablet Home Medications: Furosemide [Lasix] 20 mg PO 2XW 02/03/17 [History] Gabapentin [Neurontin] 300 mg PO DAILY 02/03/17 [History] Ibuprofen [Motrin] 800 mg PO Q8H PRN 02/03/17 [History] Methocarbamol [Robaxin] 750 mg PO Q6-8H 02/03/17 [History] Potassium Chloride 20 meq PO DAILY 02/03/17 [History] Propranolol HCl 40 mg PO TID 02/03/17 [History] Cholecalciferol (Vitamin D3) [Vitamin D3] 5,000 unit PO DAILY 05/04/17 [History] Cyanocobalamin (B-12) [Vitamin B12] 1,000 mcg SQ DAILY 30 Days #30 vial [Rx] Folic Acid 1 mg PO DAILY #30 tablet 05/08/17 [Rx] Thiamine (B-1) [Vitamin B-1] 100 mg PO DAILY 30 Days #30 tablet 05/08/17 [Rx] Allergies/Adverse Reactions: 3 Allergy/AdvReac Type Severity Reaction Status Date / Time celecoxib [From Celebrex] Allergy Hives Verified 10/08/16 13:49 Penicillins Allergy Hives Verified 10/08/16 13:49 Procedures/tests Complete & Pending: Procedures Performed prior 72 hours Category Date Time Status NM hepatobiliary w drug [NM] Routine Exams 05/07/17 08:00 Completed US gall bladder [US] Routine Exams 05/05/17 08:30 Draft IR biopsy bone [IR] Routine IR 05/06/17 Completed Date of admission: 05/05/17 00:58 Primary care physician: Danii Berg MD Consults: 05/05/17 00:59 Consult to Oncology Hematology [CONS] Routine Consulting Provider: Susie Goldman Reason for Consult: symptomatic anemia, hx of microcytic anemia Call Completed: No 05/05/17 17:43 Consult to Interventional Radiology [CONS] Routine Consulting Provider: Radiology Interventional Cols Reason for Consult: bone marrow aspiration biopsy, send for FISH and cytogenetics Call Completed: No 05/06/17 08:29 Consult to Physical Therapy [CONS] Routine Comment: Evaluate, develop and implement POC Reason for Consult: weakness 05/07/17 14:12 Consult to Surgery [CONS] Routine Consulting Provider: Surgery Teodoro Patel Reason for Consult: gall stone, chronic RUQ pain Time Notified: 14:13 Call Completed: Yes Discharging clinician: Cayla Mccabe Anticipated date of discharge: 05/08/17 - Patient Status Disposition: Home, Self-Care Condition: Good Functional capacity at discharge: independent ambulation Overall status at discharge: patient is back to baseline - Ambulatory Orders Ambulatory Orders: Complete Blood Count [HEME] Time Frame: 05/13/17, Facility: [facility], Location: Lab - Discharge Instructions Follow Up With: Danii Berg MD [Primary Care Provider] - 05/14/17 2:50 pm () Antonio Patel MD [Non-Partnered Physician] - Additional Instructions: follow up gallstone Interval History: Ms. Paul is a 47 year old female with PMH of macrocytic anemia, GERD, anxiety, depression, alcohol and tobacco abuse, pancreatitis, cholelithiasis who presented to the ER for evaluation worsening generalized weakness and shortness of breath. Upon arrival to the ER she was found to have Hgb of 3.8. She also reported of having a few beers prior to her arrival to the ER. She reported of drinking 8-12beers daily for the last year. Pt was admitted in January for the same presentation and underwent EGD/Colonoscopy which was negative for any acute bleeds. She also complained of RUQ pain which is the same as her last hospitalization. At that time, no surgical intervention was recommended. She denied any fever or chills, however reports of having a cold for the last two weeks. Patient was admitted on May 05 for severe anemia. Her hemoglobin improved, she continues complaining of right upper quadrant abdominal pain and a dry cough. Right upper quadrant ultrasound showed thickened gallbladder wall and multiple stones. Concerning for possible acute cholecystitis. HIDA did not show acute cholecystitis, normal gallbladder EF. follow up as outpatient patient is doing well, pain improved, tolerated regular diet Hospital course: Ms. Paul is a 47 year old female with PMH of macrocytic anemia, GERD, anxiety, depression, alcohol and tobacco abuse, pancreatitis, cholelithiasis who presented to the ER for evaluation worsening generalized weakness and shortness of breath. Upon arrival to the ER she was found to have Hgb of 3.8. She also reported of having a few beers prior to her arrival to the ER. She reported of drinking 8-12beers daily for the last year. Pt was admitted in January for the same presentation and underwent EGD/Colonoscopy which was negative for any acute bleeds. She also complained of RUQ pain which is the same as her last hospitalization. At that time, no surgical intervention was recommended. She denied any fever or chills, however reports of having a cold for the last two weeks. Patient was admitted on May 05 for severe anemia. Her hemoglobin improved, she continues complaining of right upper quadrant abdominal pain and a dry cough. (1) Anemia Current Visit: No Status: Acute Assessment and plan: Reported history of Macrocytic anemia with Folate deficiency s/p EGD and colonoscopy in with no acute bleeding reported Stool occult negative Pt to receive 4unit PRBC transfusion, improved Hematology evaluation appreciated, bone marrow biopsy on 05/06. she is going to follow up with Dr fontanez continue to closely monitor H&H continue home dose of folate Patient also has history of chronic alcohol abuse and splenomegaly Qualifiers: Anemia type: folate deficiency Folate deficiency anemia type: dietary Qualified Code(s): D52.0 - Dietary folate deficiency anemia (2) Abdominal pain Current Visit: No Status: Acute Assessment and plan: Patient has on and off right upper quadrant pain for last few months, pain spasmatic 8 out of 10 associated with nausea. She has tenderness to the right upper quadrant drain. Ultrasound shows possible acute on chronic cholecystitis. HIDA did not showed acute cholecystitis. I spoke to Dr Patel , patient can follow up with him as outpatient since heamtology wants to hold off surgery for now. Qualifiers: Abdominal location: right upper quadrant Qualified Code(s): R10.11 - Right upper quadrant pain (3) Gallstones without obstruction of gallbladder Current Visit: Yes Status: Acute Assessment and plan: follow up with Dr patel as outpatient. Hematology wants to hold surgery for now Qualifiers: Cholelithiasis location: gallbladder Cholecystitis presence: with cholecystitis Cholecystitis acuity: acute and chronic Qualified Code(s): K80.12 - Calculus of gallbladder with acute and chronic cholecystitis without obstruction (4) Pancytopenia Current Visit: No Status: Chronic Assessment and plan: Multifactorial due to alcoholism and possible bone marrow displasia. 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 Laboratory findings concerning for underlying bone marrow myeloproliferative disorder/leukemia. She had BM biopsy on 05/06 and tolerated procedure well, patient is going to follow up with Dr. Fontanez on outpatient basis for further monitoring and to discuss BM biopsy results. continues SQ B12 injections and oral folic acid replacement. (5) Chronic alcohol use Current Visit: No Status: Chronic Assessment and plan: She denies alcohol withdrawal. continue thiamine and folic acid (6) Weakness Current Visit: Yes Status: Acute Assessment and plan: From severe anemia improved. (7) Tobacco abuse Current Visit: Yes Status: Acute Assessment and plan: Smoking cessation discussed, patient declined nicotine patch. Time spent discussing smoking cessation with patient: more than 10 minutes - Time Spent with Patient Total time spent providing and/or coordinating discharge services: Greater than 30 minutes - Constitutional Vitals: Temp Pulse Resp BP Pulse Ox 98.2 F 58 15 110/79 95 05/08/17 07:30 05/08/17 08:08 05/08/17 07:30 05/08/17 07:30 05/08/17 07:30 General appearance: Present: disheveled, A&O X 3, no acute distress, answers questions appropriately Exam: CONSTITUTIONAL: patient appears as an age appropriate female in no acute distress. EYES Clear sclerae, bilateral pupils are equal, reactive to light. EMOI. RESPIRATORY: No accessory muscle use, bilateral clear to auscultation, no wheezing, no crackles/rales. CARDIOVASCULAR: Regular heart rate, normal S1 and S2, no murmurs GASTROINTESTINAL: bowel sounds present, soft, no tenderness. MUSCULOSKELETAL: Joints in normal range of motion, no clubbing, no edema, no cyanosis. Bilateral peripheral pulses 2+. NEUROLOGIC: CN II to XII are grossly intact, no focal neurological deficit. - VTE Documentation of Mechanical Device: Intermittent pneumatic compression device
--- NOTE | 2017-05-08 16:33 | Event Note ---
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 Called patient following her discharge to discuss laboratory results which more than likely explain her pancytopenia, pending final bone marrow pathology results, FISH and cytogenetics. Preliminary bone marrow biopsy results are not indicative of an underlying myeloproliferative or leukemia at this time. Arranged for patient to begin copper replacement with 8 mg/day x7 days, 4 mg/ day x7 days followed with 2 mg/day x7 days. She is scheduled to follow up with Dr. Fontanez for continued monitoring and to discuss final bone marrow results. I had a quite honest and upfront conversation with the patient that her regular alcohol use is likely the cause of her B12, folate and now copper deficiency causing her pancytopenia. I discussed with the patient that I am very concerned for her health should she continue down this path and that her choices will likely result in end organ damage should she continue to drink alcohol on the level that she does. She discussed with me that she is interested in quitting and that she did not experience significant detox symptoms while inpatient and currently denies related symptoms at this time. Voices understanding and that she wishes to quit abusing alcohol. I will be mailing a list of outpatient substance abuse treatment programs to the patient.
== END 2017-05-08 10:14 | disposition home or self-care (01) | DRG 809 ==
LOC: EMEROO 21:23 → 2NNU 21:23 → SUATTDRO 05-05 00:58 → 2NNU 05-05 01:45
PROVIDERS: ADMIT Internal Medicine; ATTEND Hospitalist

== ENCOUNTER 2018-09-06 12:49 | Inpatient (IN) ==
[2018-09-06] MEDS ORDERED: Ipratropium/Albuterol Neb 3 ML IH ONE (13:11)
[2018-09-06] MEDS ORDERED: predniSONE 20 MG TABLET PO ONE (13:11)
[2018-09-06 13:26] LABS: Platelet Count 105 K/mcL (140-400); Red Cell Distribution Width 11.9 % (11.5-14.5)
[2018-09-06 13:27] LABS: Hematocrit 38.5 % (35.3-44.9); Hemoglobin 14.1 g/dL (11.5-15.4); Mean Corpuscular HGB Conc 36.6 g/dL (31.6-35.5); Mean Corpuscular Hemoglobin 35.6 pg (28.0-33.3); Mean Corpuscular Volume 97.2 fL (83.0-100.0); Mean Platelet Volume 10.1 fL (9.4-12.4); Monocytes # 0.1 K/mcL (0.0-1.3); Red Blood Count 3.96 M/mcL (3.82-4.97)
[2018-09-06 13:45] LABS: Troponin I 0.11 ng/mL (< 0.04)
[2018-09-06 13:55] LABS: BUN/Creatinine Ratio 17 (6-26); Blood Urea Nitrogen 20 mg/dL (6-20); Calcium 8.9 mg/dL (8.6-10.3); Carbon Dioxide 20 mEq/L (23-29); Chloride 78 mEq/L (98-107); Glucose 89 mg/dL (70-105); Osmolality,Calculated 248 (280-300); Potassium 3.9 mEq/L (3.5-5.1); Sodium 118 mEq/L (136-145); eGFR For Non-African Americans 50 (> 60)
--- NOTE | 2018-09-06 14:08 | Emergency Department Note ---
Disposition Clinical Impression: Hyponatremia, Elevated troponin, Elevated brain natriuretic peptide (BNP) level, Daily consumption of alcohol CAP (community acquired pneumonia) Qualifiers: Laterality: right Lung location: lower lobe of lung Qualified Code(s): J18.1 - Lobar pneumonia, unspecified organism Disposition: Admitted As Inpatient Condition: Fair Time of Disposition: 15:20 General Adult HPI - General Chief complaint: ED Weakness Stated complaint: Cough / Vomiting / Weakness Time Seen by Provider: 09/06/18 12:58 Source: patient Limitations: no limitations - History of Present Illness Pain Scale: 4 - Related Data Home Medications Medication Instructions Recorded Confirmed Gabapentin [Neurontin] 300 mg PO DAILY 02/03/17 09/06/18 Methocarbamol [Robaxin] 750 mg PO Q6-8H PRN 02/03/17 09/06/18 Propranolol HCl 40 mg PO TID 02/03/17 09/06/18 Cholecalciferol (Vitamin D3) 5,000 unit PO DAILY 05/04/17 09/06/18 [Vitamin D3] hydroCHLOROthiazide 12.5 mg PO DAILY 06/05/18 09/06/18 [Hydrochlorothiazide] Esomeprazole Magnesium [Nexium] 20 mg PO DAILY 09/06/18 09/06/18 FLUoxetine HCl [Fluoxetine HCl] 10 mg PO DAILY 09/06/18 09/06/18 Ipratropium [ATROVENT Inhaler] 1 puff IH TID 09/06/18 09/06/18 Previous Rx's Medication Instructions Recorded Folic Acid 1 mg PO DAILY #30 tablet 05/08/17 Thiamine (B-1) [Vitamin B-1] 100 mg PO DAILY 30 Days #30 tablet 05/08/17 Cyanocobalamin (B-12) [Vitamin B12] 1,000 mcg SQ QMONTH 11 Days #1 vial 05/18/17 Albuterol Sulfate [Albuterol 2 puff IH Q6H PRN #1 unit 06/05/18 Inhaler] Ibuprofen [Motrin] 800 mg PO Q8HR PRN #50 tablet 06/05/18 Allergies Allergy/AdvReac Type Severity Reaction Status Date / Time celecoxib [From Celebrex] Allergy Hives Verified 09/06/18 12:54 Penicillins Allergy Hives Verified 09/06/18 12:54 Past Medical History - Past Medical History Medical history: Reports: hypertension Surgical history: Reports: orthopedic, other, JERALD/BSO, other Psychiatric history: Reports: anxiety, depression 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 - Social History Smoking Status: Current every day smoker Smokeless Tobacco Status: No Alcohol use: Reports: occasionally Drug use: Reports: none Physical Exam - General Limitations: no limitations General appearance: alert, in no apparent distress Course Vital Signs Temperature 98.4 F 09/06/18 12:52 Pulse Rate 81 09/06/18 12:52 Respiratory Rate 16 09/06/18 12:52 Blood Pressure 99/65 09/06/18 12:52 O2 Sat by Pulse Oximetry 93 09/06/18 12:52 Temperature 97.9 F 09/08/18 07:16 Pulse Rate 70 09/08/18 07:16 Respiratory Rate 18 09/08/18 07:16 Blood Pressure 118/90 09/08/18 07:16 O2 Sat by Pulse Oximetry 99 09/08/18 07:16 Oxygen Delivery Oxygen Delivery Nasal Cannula Medical Decision Making - Lab Data Result diagrams: 09/08/18 04:25 09/08/18 04:25 Lab Results 09/06/18 09/06/18 09/06/18 Range/Units 13:10 13:10 13:10 WBC 1.5 L (4.3-11.1) K/mcL RBC 3.96 (3.82-4.97) M/mcL Hgb 14.1 (11.5-15.4) g/dL Hct 38.5 (35.3-44.9) % MCV 97.2 (83.0-100.0) fL MCH 35.6 H (28.0-33.3) pg MCHC 36.6 H (31.6-35.5) g/dL RDW 11.9 (11.5-14.5) % Plt Count 105 L (140-400) K/mcL MPV 10.1 (9.4-12.4) fL Immature Gran % Test Not Performed Seg Neutrophils % 22.0 % Band Neutrophils % 46.0 H (0-4) % Lymphocytes % 10.0 % Monocytes % 6.0 % Eosinophils % 2.0 % Basophils % Test Not Performed Metamyelocytes % 8.0 H (0) % Myelocytes % 6.0 H (0) % Neutrophils # 1.0 L (1.6-8.9) K/mcL Lymphocytes # 0.2 L (0.6-4.6) K/mcL Monocytes # 0.1 (0.0-1.3) K/mcL Eosinophils # 0.0 (0.0-0.6) K/mcL Basophils # Test Not Performed Toxic Granulation Present A (Not Present) Toxic Vacuolation Present A (Not Present) Platelet Estimate Decreased L (Normal) Polychromasia 1+ A (Not Present) Sodium 118 L* (136-145) mEq/L Potassium 3.9 (3.5-5.1) mEq/L Chloride 78 L (98-107) mEq/L Carbon Dioxide 20 L (23-29) mEq/L BUN 20 (6-20) mg/dL Creatinine 1.15 (0.60-1.20) mg/dL Est GFR ( Amer) > 60 (> 60) Est GFR (Non-Af Amer) 50 L (> 60) BUN/Creatinine Ratio 17 (6-26) Glucose 89 (70-105) mg/dL Serum Osmolality (280-300) mOsm/kg Calculated Osmolality 248 L (280-300) Lactic Acid 2.4 H (0.5-2.2) mmol/L Calcium 8.9 (8.6-10.3) mg/dL Troponin I 0.11 H* (< 0.04) ng/mL B-Natriuretic Peptide (Less than 100) pg/mL 09/06/18 09/06/18 Range/Units 13:10 13:10 WBC (4.3-11.1) K/mcL RBC (3.82-4.97) M/mcL Hgb (11.5-15.4) g/dL Hct (35.3-44.9) % MCV (83.0-100.0) fL MCH (28.0-33.3) pg MCHC (31.6-35.5) g/dL RDW (11.5-14.5) % Plt Count (140-400) K/mcL MPV (9.4-12.4) fL Immature Gran % Seg Neutrophils % % Band Neutrophils % (0-4) % Lymphocytes % % Monocytes % % Eosinophils % % Basophils % Metamyelocytes % (0) % Myelocytes % (0) % Neutrophils # (1.6-8.9) K/mcL Lymphocytes # (0.6-4.6) K/mcL Monocytes # (0.0-1.3) K/mcL Eosinophils # (0.0-0.6) K/mcL Basophils # Toxic Granulation (Not Present) Toxic Vacuolation (Not Present) Platelet Estimate (Normal) Polychromasia (Not Present) Sodium (136-145) mEq/L Potassium (3.5-5.1) mEq/L Chloride (98-107) mEq/L Carbon Dioxide (23-29) mEq/L BUN (6-20) mg/dL Creatinine (0.60-1.20) mg/dL Est GFR ( Amer) (> 60) Est GFR (Non-Af Amer) (> 60) BUN/Creatinine Ratio (6-26) Glucose (70-105) mg/dL Serum Osmolality 246 L (280-300) mOsm/kg Calculated Osmolality (280-300) Lactic Acid (0.5-2.2) mmol/L Calcium (8.6-10.3) mg/dL Troponin I (< 0.04) ng/mL B-Natriuretic Peptide 2599 H (Less than 100) pg/mL Attestation Statement - Attestation Attestation: I examined this patient and my medical decision-making was reviewed with the Resident Physician. I agree with the documented findings, disposition and treatment plan as described except to the extent set forth below. Patient presents to the ED with she and generalized weakness. Dry cough. Has felt bad for a couple of days. No chest pain. No leg pain or swelling. On examination her lung sounds are diminished. Her abdomen soft nontender. She is noted to have a healing laceration to the left side of her lip. She states that this is 2 days old. She also has some ecchymosis to the right mandible. She states this was a fall from a month ago that is improving. She was evaluated at at that time. She appears mildly dyspneic. Plan. Nebs. Chest x-ray. She is 90% on room air so she was placed on oxygen. Troponin is slightly elevated at 0.1. We will given aspirin. Likely admission for pneumonia. Chest X-Ray 09/06/18 13:12 IMPRESSION: Right basilar consolidation can reflect pneumonia. Given the nodular configuration, underlying pulmonary mass cannot be excluded. Follow-up to resolution is recommended. If this does not resolve, chest CT would be recommended for further evaluation. D/ / Mookie Madison MD / Mookie Madison MD Interpreting Provider: Mookie Madison MD
[2018-09-06] MEDS ORDERED: Aspirin 81 MG TAB.CHEW PO STA (14:10)
[2018-09-06] MEDS ORDERED: Isovue-370 500 ML BOTTLE IVP ONE (14:11)
[2018-09-06] MEDS ORDERED: cefTRIAXone 1,000 MG in Water for inj. (sterile) 20 ML 10 ML IVP ONE (14:13)
[2018-09-06] MEDS ORDERED: Azithromycin 500 MG in D5% in Water 250 ML IVPB ONE (14:13)
[2018-09-06] MEDS ORDERED: *HR* LORazepam 2 MG/ML VIAL IVP ONE (14:13)
[2018-09-06 14:20] LABS: Lymphocytes # 0.2 K/mcL (0.6-4.6)
[2018-09-06 14:22] LABS: Platelet Estimate Decreased (Normal); Polychromasia 1+ (Not Present); Toxic Granulation Present (Not Present); Toxic Vacuolation Present (Not Present)
--- NOTE | 2018-09-06 15:16 | Emergency Department Note ---
Disposition Clinical Impression: Hyponatremia, Elevated troponin, Elevated brain natriuretic peptide (BNP) level, Daily consumption of alcohol CAP (community acquired pneumonia) Qualifiers: Laterality: right Lung location: lower lobe of lung Qualified Code(s): J18.1 - Lobar pneumonia, unspecified organism Disposition: Admitted As Inpatient Condition: Fair Referrals: NONE,PCP [Primary Care Provider] - Forms: ED Satisfaction Letter Time of Disposition: 15:16 General Adult HPI - General Chief complaint: ED Weakness Stated complaint: Cough / Vomiting / Weakness Time Seen by Provider: 09/06/18 12:58 Source: patient Mode of arrival: ambulatory Limitations: no limitations Nursing Notes Reviewed: Yes Vital Signs Reviewed: Yes - History of Present Illness HPI Narrative: Patient is a 48-year-old female with a past medical history of hypertension presents to the emergency department for evaluation of generalized weakness has been going on for the past 5 days as well as a productive cough. She admits to one pack per day smoking as well as daily alcohol consumption including up to 6 bottles of beer per day. Pain Scale: 4 - Related Data Home Medications Medication Instructions Recorded Confirmed Gabapentin [Neurontin] 300 mg PO DAILY 02/03/17 06/05/18 Methocarbamol [Robaxin] 750 mg PO Q6-8H PRN 02/03/17 06/05/18 Propranolol HCl 40 mg PO TID 02/03/17 06/05/18 Cholecalciferol (Vitamin D3) 5,000 unit PO DAILY 05/04/17 06/05/18 [Vitamin D3] Ibuprofen [Ibu] 800 mg PO 06/05/18 Lipase/Protease/Amylase [Creon Dr 1 each PO 06/05/18 36,000 Units Capsule] hydroCHLOROthiazide 12.5 mg PO 06/05/18 [Hydrochlorothiazide] Previous Rx's Medication Instructions Recorded Folic Acid 1 mg PO DAILY #30 tablet 05/08/17 Thiamine (B-1) [Vitamin B-1] 100 mg PO DAILY 30 Days #30 tablet 05/08/17 Cyanocobalamin (B-12) [Vitamin B12] 1,000 mcg SQ QMONTH 11 Days #1 vial 05/18/17 Albuterol Sulfate [Albuterol 2 puff IH Q6H PRN #1 unit 06/05/18 Inhaler] Azithromycin [Azithromycin 6-Tab 250 mg PO PER PKG DI #6 tab 06/05/18 Pack] Benzonatate [Tessalon] 200 mg PO Q8HR PRN #15 capsule 06/05/18 Ibuprofen [Motrin] 800 mg PO Q8HR PRN #50 tablet 06/05/18 Ipratropium [ATROVENT Inhaler] 1 puff IH BID #1 hfa.aer.ad 06/05/18 Allergies Allergy/AdvReac Type Severity Reaction Status Date / Time celecoxib [From Celebrex] Allergy Hives Verified 09/06/18 12:54 Penicillins Allergy Hives Verified 09/06/18 12:54 All systems ED: reviewed and negative except as stated. Review of Systems: As Per HPI Constitutional: Reports: weakness. Denies: fever, chills Cardiovascular: Reports: dyspnea on exertion. Denies: chest pain, palpitations, edema, syncope, paroxysmal nocturnal dyspnea Respiratory: Reports: cough, dyspnea, sputum production. Denies: wheezes, hemoptysis Gastrointestinal: Denies: abdominal pain, nausea, vomiting, diarrhea Musculoskeletal: Denies: back pain Integumentary: Denies: rash Past Medical History - Past Medical History Attestation: Yes The following information was validated with the patient. Medical history: Reports: hypertension Surgical history: Reports: orthopedic, other, JERALD/BSO, other Psychiatric history: Reports: anxiety, depression [employer] history: Reports: non-contributory - Social History Smoking Status: Current every day smoker Smokeless Tobacco Status: No Alcohol use: Reports: occasionally Drug use: Reports: none Physical Exam CONSTITUTIONAL: Appears older than stated age.; A&O X 3, in no apparent distress HEAD: Normocephalic; atraumatic EYES: PERRL, no scleral icterus NOSE: The nose is normal in appearance without rhinorrhea NECK: No JVD or distended neck veins RESP: Normal chest excursion with respiration; rhonchi auscultated in the right lower lobe with diffuse expiratory wheeze mildly. CARD: Regular rhythm, without murmurs, rub or gallop ABD: Non-distended; non-tender, soft, without rigidity, rebound or guarding,no pulsatile mass CHEST: No pain with palpation SKIN: Normal for age and race; warm and dry without diaphoresis ; no apparent lesions EXTREMITIES: Pulses are 2 plus and equal times 4 extremities, no peripheral edema or calf muscle pain - General Limitations: no limitations General appearance: alert, in no apparent distress Course Course Narrative: Concern on patient's arrival was that she possibly has a right lower lobe pneumonia concerning to an overall weakness. Just has a history of significant alcohol use which if admitted will need to be monitored with CIWA. Patient undergo a cardiac evaluation also treat her with a dose of steroids as well as breathing treatment given her wheezing. - Reevaluation(s) Reevaluation #1: The patient's sodium was significantly low at 118 as well as a low chloride. I discussed this with the technician submarine cable equipment on-call and he recommended a liter of normal saline most likely secondary to volume depletion. I also discussed the patient's alcohol use and ordered vitamins including thiamine. The patient also has an elevation of her troponin at 0.1 as well as an elevated BNP. Given that her chest x-ray showing a right lower lobe pneumonia concerning for a mass she will also undergo a CT of the chest to evaluate for blood clot, pneumonia, and mass. She was started on community-acquired pneumonia coverage. Time: 15:29 Reevaluation #2: I discussed patient's case with the welder gas tungsten arc on-call, Dr. Brink got her and he agrees to consult with the patient agrees with current plans on holding any eye protonic saline at this time given that the patient is mentally intact and has no deficits at this time. He agrees with the plan to closely monitor her sodiums at least every 4 hours and to administer the normal saline bolus re commended by the technician submarine cable equipment Dr. Ross. I updated Dr. Charmaine Summers and he agrees with this plan. Time: 15:39 Vital Signs Temperature 98.4 F 09/06/18 12:52 Pulse Rate 81 09/06/18 12:52 Respiratory Rate 16 09/06/18 12:52 Blood Pressure 99/65 09/06/18 12:52 O2 Sat by Pulse Oximetry 93 09/06/18 12:52 Temperature 98.4 F 09/06/18 12:52 Pulse Rate 81 09/06/18 12:52 Respiratory Rate 18 09/06/18 13:48 Blood Pressure 99/65 09/06/18 12:52 O2 Sat by Pulse Oximetry 94 09/06/18 13:48 Oxygen Delivery Oxygen Delivery Room Air Medical Decision Making - Medical Records Medical records reviewed: Yes I reviewed the patient's medical records. - Lab Data Lab results reviewed: Yes I reviewed the patient's lab results. Result diagrams: 09/06/18 13:10 09/06/18 13:10 Lab Results 09/06/18 09/06/18 09/06/18 Range/Units 13:10 13:10 13:10 WBC 1.5 L (4.3-11.1) K/mcL RBC 3.96 (3.82-4.97) M/mcL Hgb 14.1 (11.5-15.4) g/dL Hct 38.5 (35.3-44.9) % MCV 97.2 (83.0-100.0) fL MCH 35.6 H (28.0-33.3) pg MCHC 36.6 H (31.6-35.5) g/dL RDW 11.9 (11.5-14.5) % Plt Count 105 L (140-400) K/mcL MPV 10.1 (9.4-12.4) fL Immature Gran % Test Not Performed Seg Neutrophils % 22.0 % Band Neutrophils % 46.0 H (0-4) % Lymphocytes % 10.0 % Monocytes % 6.0 % Eosinophils % 2.0 % Basophils % Test Not Performed Metamyelocytes % 8.0 H (0) % Myelocytes % 6.0 H (0) % Neutrophils # 1.0 L (1.6-8.9) K/mcL Lymphocytes # 0.2 L (0.6-4.6) K/mcL Monocytes # 0.1 (0.0-1.3) K/mcL Eosinophils # 0.0 (0.0-0.6) K/mcL Basophils # Test Not Performed Toxic Granulation Present A (Not Present) Toxic Vacuolation Present A (Not Present) Platelet Estimate Decreased L (Normal) Polychromasia 1+ A (Not Present) Sodium 118 L* (136-145) mEq/L Potassium 3.9 (3.5-5.1) mEq/L Chloride 78 L (98-107) mEq/L Carbon Dioxide 20 L (23-29) mEq/L BUN 20 (6-20) mg/dL Creatinine 1.15 (0.60-1.20) mg/dL Est GFR ( Amer) > 60 (> 60) Est GFR (Non-Af Amer) 50 L (> 60) BUN/Creatinine Ratio 17 (6-26) Glucose 89 (70-105) mg/dL Calculated Osmolality 248 L (280-300) Lactic Acid 2.4 H (0.5-2.2) mmol/L Calcium 8.9 (8.6-10.3) mg/dL Troponin I 0.11 H* (< 0.04) ng/mL B-Natriuretic Peptide (Less than 100) pg/mL 09/06/18 Range/Units 13:10 WBC (4.3-11.1) K/mcL RBC (3.82-4.97) M/mcL Hgb (11.5-15.4) g/dL Hct (35.3-44.9) % MCV (83.0-100.0) fL MCH (28.0-33.3) pg MCHC (31.6-35.5) g/dL RDW (11.5-14.5) % Plt Count (140-400) K/mcL MPV (9.4-12.4) fL Immature Gran % Seg Neutrophils % % Band Neutrophils % (0-4) % Lymphocytes % % Monocytes % % Eosinophils % % Basophils % Metamyelocytes % (0) % Myelocytes % (0) % Neutrophils # (1.6-8.9) K/mcL Lymphocytes # (0.6-4.6) K/mcL Monocytes # (0.0-1.3) K/mcL Eosinophils # (0.0-0.6) K/mcL Basophils # Toxic Granulation (Not Present) Toxic Vacuolation (Not Present) Platelet Estimate (Normal) Polychromasia (Not Present) Sodium (136-145) mEq/L Potassium (3.5-5.1) mEq/L Chloride (98-107) mEq/L Carbon Dioxide (23-29) mEq/L BUN (6-20) mg/dL Creatinine (0.60-1.20) mg/dL Est GFR ( Amer) (> 60) Est GFR (Non-Af Amer) (> 60) BUN/Creatinine Ratio (6-26) Glucose (70-105) mg/dL Calculated Osmolality (280-300) Lactic Acid (0.5-2.2) mmol/L Calcium (8.6-10.3) mg/dL Troponin I (< 0.04) ng/mL B-Natriuretic Peptide 2599 H (Less than 100) pg/mL - Radiology Data Radiology results reviewed: Yes I reviewed the patient's radiology results. Chest X-Ray 09/06/18 13:12 IMPRESSION: Right basilar consolidation can reflect pneumonia. Given the nodular configuration, underlying pulmonary mass cannot be excluded. Follow-up to resolution is recommended. If this does not resolve, chest CT would be recommended for further evaluation. D/ / Mookie Madison MD / Mookie Madison MD Interpreting Provider: Mookie Madison MD Chest X-Ray 09/06/18 13:12 IMPRESSION: Right basilar consolidation can reflect pneumonia. Given the nodular configuration, underlying pulmonary mass cannot be excluded. Follow-up to resolution is recommended. If this does not resolve, chest CT would be recommended for further evaluation. D/ / Mookie Madison MD / Mookie Madison MD Interpreting Provider: Mookie Madison MD Chest CTA 09/06/18 14:11 IMPRESSION: Multifocal bilateral heterogeneous and nodular infiltrate, most confluent within the right lower lobe, likely reflecting pneumonia. CT follow-up to complete resolution is recommended to exclude the less likely possibility of neoplasm. No gross findings of pulmonary embolism. Atherosclerosis, including coronary artery calcification. D/ / Mookie Madison MD / Mookie Madison MD Interpreting Provider: Mookie Madison MD - EKG Data EKG #1 EKG attestation: Yes I reviewed and interpreted this EKG. EKG results narrative: EKG done at 13:04 shows sinus rhythm at a rate of 77 bpm. Normal axis.
[2018-09-06] MEDS ORDERED: 0.9 % Sodium Chloride 1,000 ML IVC ONE (15:23)
[2018-09-06] MEDS ORDERED: Folic Acid 1 MG TABLET PO SCH (15:30)
[2018-09-06] MEDS ORDERED: Thiamine (B-1) 100 MG TABLET PO SCH (15:30)
[2018-09-06] MEDS ORDERED: Vitamin B Complex/Vit C/Vit E 1 EACH TABLET PO SCH (15:30)
--- NOTE | 2018-09-06 15:32 | Internal Med History&Physical ---
<Nathan Emmanuel - Last Filed: 09/06/18 21:23> Date of Encounter: 09/06/18 Time of Encounter: 15:32 Internal Medicine - H&P: HPI Chief complaint: Recurrent falls Admitted From: Emergency Dept History of present illness: Ms. Paul is a 48 year old female with a past medical history of hypertension, alcoholism, and tobacco dependence who presented to the ED complaining of difficulty walking, productive cough, confusion, headache, and weakness for the past 5 days. Patient reports associated 6 pounds unintentional weight loss and night sweats. is at bedside, and reports the patient has been very weak and falling over the past month. Her has to help her walk to the bathroom. She sustained a laceration to her lip and has bruising under her right eye from a fall a few days ago. Patient reports associated head aches but denies blurry/ double vision. Patient reports drinking 6-7 beers per day. In the ED, labs revealed a leukopenia WBC 1.5, sodium level 118, chloride 78, carbon dioxide 20, lactic acid 2.4, troponin 0.11, and BNP 2599. CTA chest revealed multifocal bilateral heterogeneous and nodular infiltrate, most confluent within the right lower lobe, likely reflecting pneumonia, however neoplasm cannot be excluded. Patient was very hesitant to be admitted but agreed after a thorough conversation with the patient and her at bedside discussing the risks of untreated hyponatremia, seizures, and possible . She was started on Ativan per [facility] protocol. She requests to be a full code. Past Med Surg Social Fam HX - Past Medical History Medical history: hypertension Additional medical history: hypothyroidism, chronic back pain, edema, anxiety/depression, tremor Psychiatric history: anxiety, depression - Past Surgical History Surgical History: orthopedic, other, JERALD/BSO, other Additional surgical history: jaw surgery. plate in left arm - Social History Smoking Status: Current every day smoker Smokeless Tobacco Status: No Alcohol use: occasionally Drug use: none - Family History Father Hx Family Cardiac Disorders: Yes (hyperlipidemia) Hx Family Cancer: Yes (Breast cancer) Mother Hx Family Cardiac Disorders: Yes (Hypertension) Internal Medicine - H&P: Meds Gabapentin [Neurontin] 300 mg PO DAILY 02/03/17 [History] Methocarbamol [Robaxin] 750 mg PO Q6-8H PRN 02/03/17 [History] Propranolol HCl 40 mg PO TID 02/03/17 [History] Cholecalciferol (Vitamin D3) [Vitamin D3] 5,000 unit PO DAILY 05/04/17 [History] Folic Acid 1 mg PO DAILY #30 tablet 05/08/17 [Rx] Thiamine (B-1) [Vitamin B-1] 100 mg PO DAILY 30 Days #30 tablet 05/08/17 [Rx] Cyanocobalamin (B-12) [Vitamin B12] 1,000 mcg SQ QMONTH 11 Days #1 vial 05/18/17 [Rx] Albuterol Sulfate [Albuterol Inhaler] 2 puff IH Q6H PRN #1 unit 06/05/18 [Rx] Ibuprofen [Motrin] 800 mg PO Q8HR PRN #50 tablet 06/05/18 [Rx] hydroCHLOROthiazide [Hydrochlorothiazide] 12.5 mg PO DAILY 06/05/18 [History] Esomeprazole Magnesium [Nexium] 20 mg PO DAILY 09/06/18 [History] FLUoxetine HCl [Fluoxetine HCl] 10 mg PO DAILY 09/06/18 [History] Ipratropium [ATROVENT Inhaler] 1 puff IH TID 09/06/18 [History] Allergy/AdvReac Type Severity Reaction Status Date / Time celecoxib [From Celebrex] Allergy Hives Verified 09/06/18 12:54 Penicillins Allergy Hives Verified 09/06/18 12:54 All Systems PM: A 10-system review of systems was performed and is negative for pertinent findings except as documented above in the HPI. - Constitutional Constitutional: excessive sweating, fatigue, falls, lethargy, night sweats, weakness, weight loss, no anorexia, no chills, no fever(s) - EENT Eyes: no blurry vision, no diplopia, no loss of vision Nose, mouth and throat: no sinus pain, no sore throat - Cardiovascular Cardiovascular ROS IM: dyspnea, lightheadedness, no chest pain, no edema, no syncope - Respiratory Respiratory: cough, dyspnea, wheezing, excessive phlegm production, change in phlegm color - Gastrointestinal Gastrointestinal: nausea, vomiting, no abdominal pain, no diarrhea - Genitourinary Genitourinary: no nocturia, no urinary frequency, no urinary urgency - Musculoskeletal Musculoskeletal ROS IM: arthralgias, back pain, neck pain - Integumentary Integumentary IM: new lesions (Ecchymosis, lip laceration status post fall) - Neurological Neurological ROS: abnormal gait, confusion, disequilibrium, dizziness, frequent falls, headache(s), weakness, no numbness, no tingling, no tremor(s) - Psychiatric Psychiatric: anxiety, no depression - Endocrine Endocrine IM: no polydipsia, no polyphagia, no polyuria - Hematologic/Lymphatic Hematologic/Lymphatic: easy bruising, no easy bleeding - Constitutional Vitals: Temp Pulse Resp BP Pulse Ox 98.4 F 81 18 99/65 94 09/06/18 12:52 09/06/18 12:52 09/06/18 13:48 09/06/18 12:52 09/06/18 13:48 General appearance: Present: cooperative, mild distress, A&O X 3, pleasant, answers questions appropriately Exam: Disheveled - Head Head exam: Present: normocephalic (Ecchymosis right cheek, healing laceration over superior lip) - Eye Eye exam: Present: EOMI, conjuntiva pink, sclera anicteric - ENT ENT exam: Present: mucous membranes dry, normal oropharynx - Neck Neck exam general surgery: Present: supple, trachea midline - Respiratory Respiratory exam: Present: rhonchi, wheezes. Absent: accessory muscle use, decreased breath sounds, CTAB, rales, respiratory distress - Cardiovascular Cardiovascular exam: Present: RRR, +S1, +S2. Absent: diastolic murmur, gallop, rubs, systolic murmur - GI/Abdominal GI/Abdominal exam: Present: normal bowel sounds, soft, no peritoneal signs. Absent: distended, tenderness - Extremities Exam Extremities exam: Present: warm, radial pulses palpable and symmetrical. Absent: calf tenderness, cyanotic, pedal edema - Back Exam Back exam: Present: normal inspection, paraspinal tenderness, tenderness - Neurological Exam Neurological exam: Present: abnormal gait, alert, CN II-XII intact, oriented X3, no focal deficits. Absent: facial droop, speech deficit - Psychiatric Psychiatric exam: Present: flat affect, normal mood - Skin Skin exam: Present: dry, intact (Healing laceration superior lip, ecchymosis right cheek) Internal Med - H&P Results - Labs CBC & Chem 7: 09/06/18 13:10 09/06/18 19:15 Labs: Short CBC 09/06/18 Range/Units 13:10 WBC 1.5 L (4.3-11.1) K/mcL Hgb 14.1 (11.5-15.4) g/dL Hct 38.5 (35.3-44.9) % Plt Count 105 L (140-400) K/mcL Neutrophils # 1.0 L (1.6-8.9) K/mcL BMP 09/06/18 13:10 Sodium 118 L* Potassium 3.9 Chloride 78 L Carbon Dioxide 20 L BUN 20 Creatinine 1.15 Glucose 89 Calcium 8.9 Cardiac Enzymes 09/06/18 Range/Units 13:10 Troponin I 0.11 H* (< 0.04) ng/mL - Pulse Oximetry Interpretation Digit-Finger O2 Sat by Pulse Oximetry: 99 (On 2 L supplemental oxygen) Actions taken: none - EKG Data -: EKG Interpreted by Myself EKG shows normal: sinus rhythm (Normal sinus rhythm heart rate 77, no ST segment elevation or depression) - EKG Data Prior EKG available for review: yes When compared to previous EKG: there is no significant change - Impressions ITS Impressions Chest X-Ray 09/06/18 13:12 IMPRESSION: Right basilar consolidation can reflect pneumonia. Given the nodular configuration, underlying pulmonary mass cannot be excluded. Follow-up to resolution is recommended. If this does not resolve, chest CT would be recommended for further evaluation. D/ / Mookie Madison MD / Mookie Madison MD Interpreting Provider: Mookie Madison MD Chest CTA 09/06/18 14:11 IMPRESSION: Multifocal bilateral heterogeneous and nodular infiltrate, most confluent within the right lower lobe, likely reflecting pneumonia. CT follow-up to complete resolution is recommended to exclude the less likely possibility of neoplasm. No gross findings of pulmonary embolism. Atherosclerosis, including coronary artery calcification. D/ / Mookie Madison MD / Mookie Madison MD Interpreting Provider: Mookie Madison MD Chest X-Ray 09/06/18 19:28 IMPRESSION: Right internal jugular central venous catheter placement with the tip near the cavoatrial junction. Right lower lobe consolidation. Recommend follow-up to exclude an underlying lesion. D/ / 09/06/2018 21:17:06 Fernando Swartz MD / manferd Interpreting Provider: Fernando Swartz MD - Assessment and Plan (1) Hyponatremia Current Visit: Yes Status: Acute Assessment and plan: Patient with severe symptomatic hyponatremia sodium level 118 --> 115 --> 119 in the setting of hypovolemia/ beer potomania/ alcoholism/ HCTZ use/ PNA. Patient was given 1 L normal saline IV fluid bolus in the ED. 1.2 L fluid restriction diet Sodium chloride tablets ordered TID Central line placed, Hypertonic saline ordered. Monitor BMP every 2 hours. Patient is at risk for osmotic demyelination syndrome if sodium is corrected greater than 8 mEq in 24 hours Nephrology consulted, appreciate recommendations (2) Recurrent falls Current Visit: Yes Status: Acute Assessment and plan: Patient with history of alcoholism and severe hyponatremia. Patient has an ecchymosis on her right cheek and laceration on her superior lip after a fall a few days ago. CT brain pending. Continue pain control. Fall precautions. PT/OT consulted. (3) CAP (community acquired pneumonia) Current Visit: Yes Status: Acute Assessment and plan: Patient with leukopenia WBC 1.5, productive cough, and CT chest reveals multifocal bilateral heterogeneous and nodular infiltrate, most confluent within the right lower lobe, likely reflecting pneumonia. CT follow-up to complete resolution is recommended to exclude the less likely possibility of neoplasm. Lactic acid 2.4--> 1.6 Urine Legionella and strep pneumo antigens pending Continue Rocephin and azithromycin IV Continue duo nebs Qualifiers: Laterality: right Lung location: lower lobe of lung Qualified Code(s): J18.1 - Lobar pneumonia, unspecified organism (4) Leukopenia Current Visit: Yes Status: Acute Assessment and plan: Patient resting with leukopenia, worsen than baseline. Likely related bone marrow suppression from alcoholism. Continue close monitoring Qualifiers: Neutropenia type: unspecified Qualified Code(s): D70.9 - Neutropenia, unspecified (5) Elevated troponin Current Visit: Yes Status: Acute Assessment and plan: Initial troponin level 0.11, BNP elevated 2599 Patient denies chest pain, EKG shows no signs of ischemia Echo pending Trend serial troponins (6) Hypokalemia Current Visit: Yes Status: Acute Assessment and plan: Potassium 3.4 Supplement potassium, continue monitoring (7) Hypomagnesemia Current Visit: Yes Status: Acute Assessment and plan: Magnesium 1.3 Supplement magnesium Continue monitoring. (8) Chronic alcohol use Current Visit: Yes Status: Chronic Assessment and plan: Patient drinks 6-7 beers daily. Banana bag ordered. Continue Ativan per [facility] protocol. Social work consulted (9) Tobacco abuse Current Visit: Yes Status: Chronic Assessment and plan: Tobacco cessation discussed. Nicotine patch ordered. (10) DVT prophylaxis Current Visit: Yes Status: Acute Assessment and plan: Heparin subcutaneous TID (11) HTN (hypertension) Current Visit: Yes Status: Chronic Assessment and plan: Blood pressure stable. Hold HCTZ. Continue monitoring. Qualifiers: Hypertension type: essential hypertension Qualified Code(s): I10 - Essential (primary) hypertension - Time Spent With Patient Total time spent is greater than 50% in coordination of care (as documented) at patient's floor/unit and/or counseling patient: Procedures: Internal Med - Central Line Placement Right IJ Consent Obtained: written consent (see corresponding procedure note) Time out performed: Yes Patient placed on monitor/pulse ox: Yes MD prep: mask, gown, gloves Central line prep: Chlorhexidine scrub Local anesthesia used: Lidocaine 1% Amount of anesthesia used (mls): 5 Ultrasound used for placement: Yes Central line lumen inserted: triple Post Procedure: sutured in place, good blood return, all ports aspirated, flushed, capped, sterile dressing applied, dark venous blood, biodisk applied Post procedure x-ray: tip of catheter in good position, no pneumothorax seen Patient tolerated procedure: well, no complications Complications: none <Lashanda Negron - Last Filed: 09/07/18 11:10> Date of Encounter: 09/06/18 Internal Medicine - H&P: HPI History of present illness: Ms. Paul is a 48 year old female All Systems PM: A 10-system review of systems was performed and is negative for pertinent findings except as documented above in the HPI. - Constitutional Vitals: Temp Pulse Resp BP Pulse Ox 98.5 F 83 16 107/72 93 09/07/18 07:21 09/07/18 07:21 09/07/18 07:21 09/07/18 08:29 09/07/18 08:40 Internal Med - H&P Results - Labs CBC & Chem 7: 09/07/18 01:35 09/07/18 08:52 Labs: Short CBC 09/06/18 09/07/18 Range/Units 13:10 01:35 WBC 1.5 L 2.0 L (4.3-11.1) K/mcL Hgb 14.1 11.4 L D (11.5-15.4) g/dL Hct 38.5 31.8 L (35.3-44.9) % Plt Count 105 L 91 L (140-400) K/mcL Neutrophils # 1.0 L 1.4 L (1.6-8.9) K/mcL BMP 09/06/18 09/06/18 09/06/18 13:10 15:58 16:43 Sodium 118 L* 115 L* 119 L* Potassium 3.9 3.4 L Chloride 78 L 83 L Carbon Dioxide 20 L 20 L BUN 20 18 Creatinine 1.15 0.84 Glucose 89 123 H Calcium 8.9 8.0 L 09/06/18 09/06/18 09/06/18 17:41 19:15 22:23 Sodium 119 L* 122 L 128 L Potassium 3.2 L 3.6 Chloride 90 L 96 L Carbon Dioxide 21 L 19 L BUN 18 15 Creatinine 0.68 0.52 L Glucose 141 H 127 H Calcium 8.9 8.5 L 09/07/18 09/07/18 09/07/18 01:35 04:05 08:52 Sodium 128 L 128 L 124 L Potassium 3.4 L 3.2 L 3.2 L Chloride 96 L 96 L 96 L Carbon Dioxide 19 L 19 L 19 L BUN 15 14 16 Creatinine 0.48 L 0.39 L 0.56 L Glucose 140 H 154 H 159 H Calcium 8.2 L 8.4 L 9.1 Cardiac Enzymes 09/06/18 09/06/18 09/07/18 Range/Units 13:10 19:15 01:35 Troponin I 0.11 H* 0.10 H* 0.08 H* (< 0.04) ng/mL Urine 09/06/18 Range/Units 19:30 Urine Color Yellow (Yellow) Urine Clarity Clear (Clear) Urine pH 7.0 (5.0-8.0) pH Units Ur Specific [place] 1.008 L (1.010-1.025) Urine Protein 30 H (Neg-Trace) mg/dL Urine Glucose (UA) Normal (Normal) mg/dL - Impressions ITS Impressions Chest X-Ray 09/06/18 13:12 IMPRESSION: Right basilar consolidation can reflect pneumonia. Given the nodular configuration, underlying pulmonary mass cannot be excluded. Follow-up to resolution is recommended. If this does not resolve, chest CT would be recommended for further evaluation. D/ / Mookie Madison MD / Mookie Madison MD Interpreting Provider: Mookie Madison MD Chest CTA 09/06/18 14:11 IMPRESSION: Multifocal bilateral heterogeneous and nodular infiltrate, most confluent within the right lower lobe, likely reflecting pneumonia. CT follow-up to complete resolution is recommended to exclude the less likely possibility of neoplasm. No gross findings of pulmonary embolism. Atherosclerosis, including coronary artery calcification. D/ / Mookie Madison MD / Mookie Madison MD Interpreting Provider: Mookie Madison MD Echocardiogram 09/06/18 16:16 Impressions: LVEF 60-65%. Normal LV chamber size, wall thickness and function. Normal left ventricular diastolic function. Normal right ventricular structure and function. No evidence of pulmonary hypertension. No significant valvular dysfunction Left Ventricular Wall Motion: Rest Echo Findings All wall segments showed normal motion. Findings: Study Quality * Technically sub-optimal due to poor echocardiographic windows. ECG Findings * Normal sinus rhythm. Left Ventricle * LVEF 60-65%. * Normal LV chamber size, wall thickness and function. * Normal left ventricular diastolic function. Right Ventricle * Normal right ventricular structure and function. Left Atrium * Normal left atrial size. Right Atrium * Normal right atrial size. Interatrial Septum * Interatrial septum not well evaluated. Aortic Valve * Trileaflet aortic valve. * Normal aortic valve structure. * No aortic regurgitation. * No aortic stenosis. Mitral Valve * No mitral stenosis. * Normal mitral valve structure. * Trace mitral regurgitation. Tricuspid Valve * Trace tricuspid regurgitation. * No tricuspid stenosis. * Normal tricuspid valve structure. * No evidence of pulmonary hypertension. Pulmonic Valve * Pulmonic valve not well visualized. Aorta * Normally sized aortic root. Pericardium * The pericardium appears normal. IVC * Normal IVC dimensions and inspiratory collapse. Pulmonary Artery * Pulmonary artery not well visualized. Head CT 09/06/18 19:00 IMPRESSION: No acute intracranial abnormalities. Anterior translation at the right TMJ similar to prior recent CT may be degenerative. D/ / Nina Laura MD / Nnia Laura MD Interpreting Provider: Nina Laura MD Chest X-Ray 09/06/18 19:28 IMPRESSION: Right internal jugular central venous catheter placement with the tip near the cavoatrial junction. Right lower lobe consolidation. Recommend follow-up to exclude an underlying lesion. D/ / 09/06/2018 21:17:06 Fernando Swartz MD / manfred Interpreting Provider: Fernando Swartz MD - Assessment and Plan (1) DVT prophylaxis Current Visit: Yes Status: Acute (2) Chronic alcohol use Current Visit: Yes Status: Chronic (3) Leukopenia Current Visit: Yes Status: Acute Qualifiers: Neutropenia type: unspecified Qualified Code(s): D70.9 - Neutropenia, u nspecified (4) Tobacco abuse Current Visit: Yes Status: Chronic (5) CAP (community acquired pneumonia) Current Visit: Yes Status: Acute Qualifiers: Laterality: right Lung location: lower lobe of lung Qualified Code(s): J18.1 - Lobar pneumonia, unspecified organism (6) Hyponatremia Current Visit: Yes Status: Acute (7) Elevated troponin Current Visit: Yes Status: Acute (8) Recurrent falls Current Visit: Yes Status: Acute (9) Hypokalemia Current Visit: Yes Status: Acute (10) Hypomagnesemia Current Visit: Yes Status: Acute (11) HTN (hypertension) Current Visit: Yes Status: Chronic Qualifiers: Hypertension type: essential hypertension Qualified Code(s): I10 - Essential (primary) hypertension - Time Spent With Patient Total time spent is greater than 50% in coordination of care (as documented) at patient's floor/unit and/or counseling patient: - Attending Attestation I personally and independently interviewed and examined the patient, and I reviewed the patient's medical records. I am in agreement with the assessment and proposed treatment plan. I discussed my findings and recommendation with the patient and answer his questions. The patient's medical records were edited to accurately reflect this encounter.
[2018-09-06] MEDS ORDERED: Ondansetron 4 MG/2 ML VIAL IVP PRN (15:51)
[2018-09-06] MEDS ORDERED: Naloxone 0.4 MG/ML INJ IVP PRN (15:51)
[2018-09-06] MEDS ORDERED: traMADol 50 MG TABLET PO PRN (15:51)
[2018-09-06] MEDS ORDERED: *HR* HYDROcodone/Acet 5/325 mg TABLET PO PRN (15:51)
[2018-09-06] MEDS ORDERED: *HR* LORazepam 2 MG/ML VIAL IVP PRN ×3 (16:00)
[2018-09-06 17:24] LABS: Ethanol < 10 mg/dL (Less than 10); Lipase 61 Units/L (11-82)
[2018-09-06 17:25] LABS: Magnesium 1.3 mg/dL (1.6-2.6); Uric Acid 3.8 mg/dL (2.3-7.6)
[2018-09-06 17:26] LABS: BUN/Creatinine Ratio 21 (6-26); Blood Urea Nitrogen 18 mg/dL (6-20); Carbon Dioxide 20 mEq/L (23-29); Chloride 83 mEq/L (98-107); Glucose 123 mg/dL (70-105); Osmolality,Calculated 251 (280-300); Potassium 3.4 mEq/L (3.5-5.1); Sodium 119 mEq/L (136-145); eGFR For Non-African Americans > 60 (> 60)
--- NOTE | 2018-09-06 17:37 | Nephrology Consult Note ---
Date of Encounter: 09/06/18 Time of Encounter: 18:15 Assessment and Plan (1) Hyponatremia Current Visit: Yes Status: Acute Rec starting NaCl and fluid restriction of <1.2. Pending recheck PNa that was collected right after 0.9% saline. Discussed with the hospitalist resident that if she worsens then would rec 3% saline. Check q2hr. Rec slow rate of correction for safety. Potential contributors: Beer, HCTZ, pneumonia, and will check work up. She is very complex, and required a high degree of medical decision-making plus evaluation and management. She will require inpatient admission and a high level of care due to the severity of this hyponatremia. Discussed in detail with the hospitalist resident Thank you for consulting the [facility]; will follow with you. (2) Daily consumption of alcohol Current Visit: Yes Status: Acute I counseled her to cut back on beer consumption, which is a common cause of hyponatremia. For her alcohol withdrawal protocol, she should not have inpatient beer administered. (3) Leukopenia Current Visit: Yes Status: Acute I see that she has been worked up by hematology in the past, and nutritional deficiencies/alcoholism was attributed to her leukopenia/pancytopenia Qualifiers: Neutropenia type: unspecified Qualified Code(s): D70.9 - Neutropenia, unspecified (4) Recurrent falls Current Visit: Yes Status: Acute It is difficult to determine if these falls were secondary to alcohol-induced changes versus hyponatremic induced symptoms. History of Present Illness - Reason for Consult Consult date: 09/06/18 hyponatremia Requesting physician: Nathan Emmanuel - Chief Complaint Hyponatremia - History of Present Illness The patient is a 48-year-old female with a past medical history of chronic alcoholism, hypertension, and etc. who presented with worsening fatigue. She affirmed that she has been drinking alcohol continuously, primarily beer, and it was noted she was very hyponatremic. Nephrology was consulted. The patient has had several falls and has been in the emergency department a few times over the last 6 weeks. She denied having previous neurologic surgery. She also affirmed occasional feelings of urinary retention. She did not affirm chest pain, shortness of breath, nausea, vomiting, diarrhea, flank pains, or burning urination. She denied ever having seen a canvas worker apprentice in the past. I see that she takes hydrochlorothiazide chronically for her hypertension. She affirmed that she has been taking erol-ubh-qktopia NSAIDs for her arthritis. Family history: She did not affirm having first-degree relatives with a history of end-stage renal disease. Past Med Surg Social Fam HX - Past Medical History Medical history: hypertension Additional medical history: hypothyroidism, chronic back pain, edema, anxiety/depression, tremor Psychiatric history: anxiety, depression - Past Surgical History Surgical History: orthopedic, other, JERALD/BSO, other Additional surgical history: jaw surgery. plate in left arm - Social History Smoking Status: Current every day smoker Packs per day: 1 Smokeless Tobacco Status: No Alcohol use: occasionally Drug use: none - Family History Father Hx Family Cardiac Disorders: Yes (hyperlipidemia) Hx Family Cancer: Yes (Breast cancer) Mother Hx Family Cardiac Disorders: Yes (Hypertension) Medications and Allergies Gabapentin [Neurontin] 300 mg PO DAILY 02/03/17 [History] Methocarbamol [Robaxin] 750 mg PO Q6-8H PRN 02/03/17 [History] Propranolol HCl 40 mg PO TID 02/03/17 [History] Cholecalciferol (Vitamin D3) [Vitamin D3] 5,000 unit PO DAILY 05/04/17 [History] Folic Acid 1 mg PO DAILY #30 tablet 05/08/17 [Rx] Thiamine (B-1) [Vitamin B-1] 100 mg PO DAILY 30 Days #30 tablet 05/08/17 [Rx] Cyanocobalamin (B-12) [Vitamin B12] 1,000 mcg SQ QMONTH 11 Days #1 vial 05/18/17 [Rx] Albuterol Sulfate [Albuterol Inhaler] 2 puff IH Q6H PRN #1 unit 06/05/18 [Rx] Ibuprofen [Motrin] 800 mg PO Q8HR PRN #50 tablet 06/05/18 [Rx] hydroCHLOROthiazide [Hydrochlorothiazide] 12.5 mg PO DAILY 06/05/18 [History] Esomeprazole Magnesium [Nexium] 20 mg PO DAILY 09/06/18 [History] FLUoxetine HCl [Fluoxetine HCl] 10 mg PO DAILY 09/06/18 [History] Ipratropium [ATROVENT Inhaler] 1 puff IH TID 09/06/18 [History] 3 Allergy/AdvReac Type Severity Reaction Status Date / Time celecoxib [From Celebrex] Allergy Hives Verified 09/06/18 12:54 Penicillins Allergy Hives Verified 09/06/18 12:54 Review of Systems All Systems: reviewed and no additional remarkable complaints except as stated Exam - Vital Signs Vital signs: Initial Vital Signs Temp Pulse Resp BP Pulse Ox 98.4 F 81 16 99/65 93 09/06/18 12:52 09/06/18 12:52 09/06/18 12:52 09/06/18 12:52 09/06/18 12:52 Vital Signs - Last 8 Hours Temp Pulse Resp BP Pulse Ox 09/06/18 17:02 98.1 F 78 17 114/82 92 09/06/18 16:08 75 20 113/83 99 09/06/18 13:48 18 94 09/06/18 13:06 96 09/06/18 12:52 98.4 F 81 16 99/65 93 Intake and Output 09/06/18 09/06/18 09/06/18 07:59 15:59 23:59 Intake Total Output Total 500 / 500 Balance 10 / 490 -500 / -490 Intake: IV Fluids Rocephin 1,000 MG In Water for inj. (sterile) 10 ML @ 600 mls/ hr IVP ONCE ONE Rx#:[id number] Output: Urine 500 / 500 Other: Weight 62.596 kg 68.2 kg Patient Weight 09/06/18 23:59 Weight 68.2 kg - General Appearance General appearance: well-developed, cachectic, fatigue EENT: ATNC, PERRL, mucous membranes moist Neck: supple Respiratory: rales, course breath sounds, rhonchi Cardiology: no murmurs, no edema, regular rate, regular rhythm, normal S1, normal S2 Gastrointestinal: normoactive bowel sounds, no tenderness, no guarding Integumentary: ecchymotic Neurologic: no focal deficit, no asterixis, alert and oriented x3 Musculoskeletal: no deformities, no erythema, no cyanosis Psychiatric: mood/affect appropriate, cooperative Results - Lab Results 09/07/18 01:35 09/07/18 04:05 Most recent lab results 09/06/18 09/06/18 09/06/18 13:10 16:43 16:43 Calcium 8.9 8.0 L Phosphorus 4.0 Magnesium 1.3 L Consult Discharge Plan - Plan Referrals: NONE,PCP [Primary Care Provider] -
[2018-09-06 17:50] LABS: Thyroid Stimulating Hormone 1.31 mcIU/mL (0.340-5.600)
[2018-09-06] MEDS ORDERED: *HR* 3% Sodium Chloride 500 ML IV.SOLN IVC ONE (18:22)
--- NOTE | 2018-09-06 19:34 | Procedure Note ---
Date of procedure: 09/06/18 Pre-op diagnosis: Hyponatremia Post-op diagnosis: same Procedure: A time-out was completed verifying correct patient, procedure, site, positioning, and special equipment. The patient was placed in a dependent position appropriate for central line placement based on the vein to be cannulated. The patients right neck was prepped and draped in sterile fashion. 1% Lidocaine was used to anesthetize the surrounding skin area. A triple lumen 7-[place] Cordis catheter was introduced into the the internal jugular vein using the Seldinger technique and under ultrasound guidance. The catheter was threaded smoothly over the guide wire and appropriate blood return was obtained. Each lumen of the catheter was evacuated of air and flushed with sterile saline. The catheter was then sutured in place to the skin and a sterile dressing applied. Perfusion to the extremity distal to the point of catheter insertion was checked and found to be adequate. Attending Dr. Jacobsen was present for the entire procedure. Estimated Blood Loss: 3cc The patient tolerated the procedure well and there were no complications. ITS Impressions Chest X-Ray 09/06/18 19:28 IMPRESSION: Right internal jugular central venous catheter placement with the tip near the cavoatrial junction. Anesthesia: local Surgeon: Nathan Emmanuel Was there an therapy assistant present: Yes Front End Developer Javascript Html Css: Lashanda Negron Estimated blood loss (cc): 3 Specimen: N/A Pathology: none sent Condition: critical Disposition: no change (ICU step-down)
[2018-09-06 19:53] LABS: Bilirubin,Urine Negative (Negative); Blood,Urine Moderate (Negative); Clarity,Urine Clear (Clear); Color,Urine Yellow (Yellow); Glucose,Urine (UA) Normal (Normal); Ketones,Urine Negative (Negative); Leukocyte Esterase,Urine Negative (Negative); Nitrite,Urine Negative (Negative); Protein,Urine 30 mg/dL (Neg-Trace); Specific Gravity,Urine 1.008 (1.010-1.025); Urobilinogen,Urine Normal (Normal)
[2018-09-06 19:55] LABS: Bacteria,Urine None Seen per hpf (None-Few); Hyaline Casts,Urine None Seen per lpf (None-Few); Squamous Epithelial Cell,Urine Many per lpf (None-Few); WBC,Urine 0-3 per hpf (0-3)
[2018-09-06 20:09] LABS: BUN/Creatinine Ratio 26 (6-26); Blood Urea Nitrogen 18 mg/dL (6-20); Calcium 8.9 mg/dL (8.6-10.3); Carbon Dioxide 21 mEq/L (23-29); Chloride 90 mEq/L (98-107); Glucose 141 mg/dL (70-105); Osmolality,Calculated 258 (280-300); Potassium 3.2 mEq/L (3.5-5.1); Sodium 122 mEq/L (136-145); eGFR For Non-African Americans > 60 (> 60)
[2018-09-06] MEDS: Thiamine (B-1) 100 MG, Folic Acid 1 MG, MVI, adult with vitamin K 10 ML in 0.9 % Sodi... IVPB SCH (20:33)
[2018-09-06] MEDS: *HR* Heparin 5,000 UNIT/ML VIAL SQ SCH (21:30)
[2018-09-06] MEDS: Ipratropium/Albuterol Neb 3 ML IH SCH (22:05)
[2018-09-06 22:57] LABS: BUN/Creatinine Ratio 29 (6-26); Blood Urea Nitrogen 15 mg/dL (6-20); Calcium 8.5 mg/dL (8.6-10.3); Carbon Dioxide 19 mEq/L (23-29); Chloride 96 mEq/L (98-107); Glucose 127 mg/dL (70-105); Osmolality,Calculated 268 (280-300); Potassium 3.6 mEq/L (3.5-5.1); Sodium 128 mEq/L (136-145); eGFR For Non-African Americans > 60 (> 60)
[2018-09-06] MEDS ORDERED: D5% in Water 1,000 ML IVC SCH (23:00)
--- NOTE | 2018-09-06 23:03 | Event Note ---
Date of Encounter: 09/06/18 Time of Encounter: 23:03 I was informed by the RN that the hypertonic saline ordered by the daytime admitting staff was given after the lab value that shows sodium level at 122 was collected. She then received about 75ml of the 3% solution before discontinuation. Repeat Na after this is at 128. This is a significant increase from the 115 value seen at 4pm. Will start D5W and recheck values q2hrs. Ongoing neurologic observations indicated.
[2018-09-06 23:59] LABS: Magnesium 2.3 mg/dL (1.6-2.6)
[2018-09-07 01:56] LABS: Hematocrit 31.8 % (35.3-44.9); Mean Corpuscular HGB Conc 35.8 g/dL (31.6-35.5); Mean Corpuscular Hemoglobin 35.3 pg (28.0-33.3); Mean Corpuscular Volume 98.5 fL (83.0-100.0); Red Blood Count 3.23 M/mcL (3.82-4.97); Red Cell Distribution Width 11.9 % (11.5-14.5)
[2018-09-07 01:59] LABS: Hemoglobin 11.4 g/dL (11.5-15.4); Platelet Count 91 K/mcL (140-400)
[2018-09-07 02:13] LABS: BUN/Creatinine Ratio 31 (6-26); Blood Urea Nitrogen 15 mg/dL (6-20); Calcium 8.2 mg/dL (8.6-10.3); Carbon Dioxide 19 mEq/L (23-29); Chloride 96 mEq/L (98-107); Glucose 140 mg/dL (70-105); Osmolality,Calculated 269 (280-300); Potassium 3.4 mEq/L (3.5-5.1); Sodium 128 mEq/L (136-145); eGFR For Non-African Americans > 60 (> 60)
[2018-09-07 02:32] LABS: Lymphocytes # 0.2 K/mcL (0.6-4.6); Monocytes # 0.2 K/mcL (0.0-1.3); Neutrophils # 1.4 K/mcL (1.6-8.9)
[2018-09-07 02:33] LABS: Platelet Estimate Slight Decrease (Normal); Toxic Granulation Present (Not Present); Toxic Vacuolation Present (Not Present)
[2018-09-07] MEDS: Ipratropium/Albuterol Neb 3 ML IH SCH ×4 (03:26→22:01)
[2018-09-07] MEDS: Acetaminophen 325 MG TABLET PO PRN (04:01)
[2018-09-07] MEDS: Methocarbamol 750 MG TABLET PO PRN ×2 (04:10→15:35)
[2018-09-07 04:40] LABS: BUN/Creatinine Ratio 36 (6-26); Blood Urea Nitrogen 14 mg/dL (6-20); Calcium 8.4 mg/dL (8.6-10.3); Carbon Dioxide 19 mEq/L (23-29); Chloride 96 mEq/L (98-107); Glucose 154 mg/dL (70-105); Osmolality,Calculated 270 (280-300); Potassium 3.2 mEq/L (3.5-5.1); Sodium 128 mEq/L (136-145); eGFR For Non-African Americans > 60 (> 60)
[2018-09-07] MEDS: *HR* Heparin 5,000 UNIT/ML VIAL SQ SCH ×3 (06:14→22:12)
[2018-09-07] MEDS ORDERED: cefTRIAXone 1,000 MG in Water for inj. (sterile) 20 ML 10 ML IVP SCH (09:00)
[2018-09-07] MEDS: FLUoxetine HCl 10 MG CAPSULE PO SCH (09:04)
[2018-09-07] MEDS: Gabapentin 300 MG CAPSULE PO SCH (09:04)
[2018-09-07] MEDS: Nicotine 14 MG PATCH.TD24 TD SCH (09:05)
[2018-09-07] MEDS: Levofloxacin 750 MG/150 ML 750 MG/150 ML BAG IVPB SCH (09:10)
[2018-09-07 09:26] LABS: BUN/Creatinine Ratio 29 (6-26); Blood Urea Nitrogen 16 mg/dL (6-20); Calcium 9.1 mg/dL (8.6-10.3); Carbon Dioxide 19 mEq/L (23-29); Chloride 96 mEq/L (98-107); Glucose 159 mg/dL (70-105); Osmolality,Calculated 263 (280-300); Potassium 3.2 mEq/L (3.5-5.1); Sodium 124 mEq/L (136-145); eGFR For Non-African Americans > 60 (> 60)
--- NOTE | 2018-09-07 09:50 | Nephrology Progress Note ---
Date of Encounter: 09/07/18 Time of Encounter: 09:47 - Assessment and Plan (1) Hyponatremia Current Visit: Yes Status: Acute Na+ increased significantly from 119 to 128 Now on D5W with Na+ levels every 2 hours Robust UOP 2800ml; already has 1050ml out today Continue fluid restriction (2) Leukopenia Current Visit: Yes Status: Acute WBC up to 2.0 from 1.5 per primary team Qualifiers: Neutropenia type: unspecified Qualified Code(s): D70.9 - Neutropenia, unspecified (3) Daily consumption of alcohol Current Visit: Yes Status: Acute per primary team Subjective Principal diagnosis: hyponatremia Interval history: Patient seen and examined. Laying in bed comfortably. Objective - Vital Signs Vital signs: Vital Signs Temp Pulse Resp BP Pulse Ox 09/07/18 08:29 107/72 09/07/18 07:21 98.5 F 83 16 88/54 93 09/07/18 04:09 110/83 09/07/18 03:27 15 93 09/07/18 03:16 99.0 F 84 16 85/57 92 09/07/18 02:00 95/62 09/07/18 01:45 79/57 09/07/18 01:30 85/54 09/07/18 01:15 75/56 09/07/18 01:00 83/53 09/07/18 00:50 80/50 09/07/18 00:36 92/66 09/07/18 00:15 99.2 F 83 18 83/52 91 09/06/18 22:44 94 09/06/18 22:05 21 94 09/06/18 20:03 98.5 F 78 30 118/82 97 09/06/18 17:02 98.1 F 78 17 114/82 92 09/06/18 16:58 96 09/06/18 16:08 75 20 113/83 99 09/06/18 13:48 18 94 09/06/18 13:06 96 09/06/18 12:52 98.4 F 81 16 99/65 93 Intake and Output 09/06/18 09/07/18 09/07/18 23:59 07:59 15:59 Intake Total 419 / 429 1705.2 / 1705.2 Output Total 2800 / 2800 1050 / 1050 Balance -2381 / -2371 655.2 / 655.2 Intake: IV Fluids 179 / 189 1705.2 / 1705.2 0.9 % Sodium Chloride 1,000 ML 1000 / 1000 @ 999 mls/hr IVC .Q1H1M ONE Rx# :[id number] 3% Sodium Chloride 100 ML @ 100 75 / 75 mls/hr IVC .Q1H ONE Rx#: [id number] Dextrose 5% 1,000 ML @ 60 mls/ 194 / 194 hr IVC .[id number] [facility] Rx#: [id number] Magnesium Sulfate 2 GM In 0.9 % 104 / 104 Sodium Chloride 100 ML @ 52 mls/hr IVPB ONCE ONE Rx#: [id number] Vitamin B-1 100 MG Folvite 1 MG 511.2 / 511.2 M.v.i. Adult 10 ml In 0.9 % Sodium Chloride 500 ML @ 85.2 mls/hr IVPB DAILY@1800 [facility] Rx#: [id number] Oral 240 / 240 Output: Urine 500 / 500 Catheter 2300 / 2300 1050 / 1050 09/06/2018 900 / 900 Other: Weight 68.2 kg 69.3 kg Patient Weight 09/07/18 23:59 Weight 69.3 kg - General Appearance General appearance: Present: well-developed, well-nourished EENT: Present: ATNC, mucous membranes moist, hearing intact, vision intact Neck: Present: supple Respiratory: Present: course breath sounds Cardiology: Present: no edema, normal S1, normal S2 Gastrointestinal: Present: no tenderness, no guarding Integumentary: Present: warm and dry Neurologic: Present: alert and oriented x3 Psychiatric: Present: mood/affect appropriate, cooperative - Lab 09/07/18 01:35 09/07/18 08:52 Most recent lab results 09/06/18 09/07/18 09/07/18 22:23 01:35 01:35 Calcium 8.5 L 8.2 L Magnesium 2.3 2.3 09/07/18 09/07/18 04:05 08:52 Calcium 8.4 L 9.1 Magnesium Consult Discharge Plan - Plan Referrals: NONE,PCP [Primary Care Provider] -
--- NOTE | 2018-09-07 11:17 | Internal Med Progress Note ---
Hospitalist Progress Note - Encounter Date of Encounter: 09/07/18 Time of Encounter: 11:46 - Subjective Interval History: Still has shortness of breath and cough but slight better. Family at bedside. Review the lab was still low white count but slight better. Review of the vitals with low blood pressure Vomiting headache dizziness chest pain abdominal pain diarrhea. Complained of generalized weakness fatigue decreased appetite mild nausea. - Exam Vitals: Temp Pulse Resp BP Pulse Ox 98.5 F 83 16 107/72 93 09/07/18 07:21 09/07/18 07:21 09/07/18 07:21 09/07/18 08:29 09/07/18 08:40 Exam: General appearance: No acute distress, A&O X 3, appears tired with intermittent cough. Family at bedside Eye exam: EOMI, PERRLA ENT exam: Moist oral mucosa Neck nontender, supple Respiratory exam: Decreased breath sound bilaterally with few scattered rhonchi Cardiovascular exam: Regular rate and rhythm, no systolic murmur Abdominal exam: Soft, nontender, nondistended, positive bowel sounds Extremities exam: No calf tenderness, no pedal edema Present: Skin-no rash, warm, dry, intact(Healing laceration superior lip, ecchymosis right cheek) Neurological exam: Alert, awake, oriented 3, CN II-XII intact, no focal deficits. No facial droop. Normal speech. - Assessment and Plan (1) CAP (community acquired pneumonia) Current Visit: Yes Status: Acute Assessment and Plan: Patient with leukopenia WBC 1.5, productive cough, and CT chest reveals multifocal bilateral heterogeneous and nodular infiltrate, most confluent within the right lower lobe, likely reflecting pneumonia. CT follow-up to complete resolution is recommended to exclude the less likely possibility of neoplasm. Lactic acid 2.4--> 1.6 Urine Legionella and strep pneumo antigens pending Respiratory infection panel ordered Continue Rocephin and azithromycin IV Continue duo nebs Chest percussion, spirometry Antitussive (2) Leukopenia Current Visit: Yes Status: Acute Assessment and Plan: Patient resting with leukopenia, worsen than baseline. Likely related to sepsis versus bone marrow suppression from alcoholism. Continue close monitoring (3) Chronic alcohol use Current Visit: Yes Status: Chronic Assessment and Plan: Patient drinks 6-7 beers daily. Banana bag ordered. Continue Ativan per [facility] protocol. Social work consulted (4) Hyponatremia Current Visit: Yes Status: Acute Assessment and Plan: Patient with severe symptomatic hyponatremia sodium level 118 --> 115 --> 119 in the setting of hypovolemia/ beer potomania/ alcoholism/ HCTZ use/ PNA. Patient was given 1 L normal saline IV fluid bolus in the ED. 1.2 L fluid restriction diet Sodium chloride tablets ordered TID Central line placed, Hypertonic saline ordered - now stopped Monitor BMP every 4 hours. Software Consultant on board and agreed with the above plan. (5) Elevated troponin Current Visit: Yes Status: Acute Assessment and Plan: Initial troponin level 0.11 and not trending down. Most likely demand ischemia due to acute illness sepsis. BNP elevated 2599-be cautious in volume resuscitation Patient denies chest pain, EKG shows no signs of ischemia Echo Impressions: LVEF 60-65%. Normal LV chamber size, wall thickness and function. Normal left ventricular diastolic function. Normal right ventricular structure and function. No evidence of pulmonary hypertension. No significant valvular dysfunction Left Ventricular Wall Motion: Rest Echo Findings All wall segments showed normal motion. Will consult whittling room operator if needed (6) HTN (hypertension) Current Visit: Yes Status: Chronic Assessment and Plan: At present low blood pressure. Most likely due to underlying sepsis. Talk to her credit or loans officer about fluid resuscitation and he advise to continue gentle hydration with few small boluses if really need otherwise continue monitor. A started normal saline 75 mL per hour and repeat blood pressure later in the day is started to improve. Hold home antihypertensive medicine. Continue monitoring. (7) Recurrent falls Current Visit: Yes Status: Acute Assessment and Plan: Most likely due to above. Patient with history of alcoholism and severe hyponatremia. Patient has an ecchymosis on her right cheek and laceration on her superior lip after a fall a few days ago. CT brain with no acute finding. Continue pain control. Fall precautions. PT/OT consulted. (8) Hypokalemia Current Visit: Yes Status: Acute Assessment and Plan: Potassium 3.1. Supplement potassium, continue monitoring (9) Hypomagnesemia Current Visit: Yes Status: Acute Assessment and Plan: Replacement and monitoring. (10) Tobacco abuse Current Visit: Yes Status: Chronic Assessment and Plan: Tobacco cessation discussed. Nicotine patch ordered. (11) DVT prophylaxis Current Visit: Yes Status: Acute Assessment and Plan: Heparin subcutaneous - Time Spent with Patient Total time spent is greater than 50% in coordination of care (as documented) at patient's floor/unit and/or counseling patient: 25 - 35 minutes Internal Medicine: Result - Labs CBC & Chem 7: 09/07/18 01:35 09/07/18 13:03 Labs: Short CBC 09/06/18 09/07/18 Range/Units 13:10 01:35 WBC 1.5 L 2.0 L (4.3-11.1) K/mcL Hgb 14.1 11.4 L D (11.5-15.4) g/dL Hct 38.5 31.8 L (35.3-44.9) % Plt Count 105 L 91 L (140-400) K/mcL Neutrophils # 1.0 L 1.4 L (1.6-8.9) K/mcL BMP 09/06/18 09/06/18 09/06/18 13:10 15:58 16:43 Sodium 118 L* 115 L* 119 L* Potassium 3.9 3.4 L Chloride 78 L 83 L Carbon Dioxide 20 L 20 L BUN 20 18 Creatinine 1.15 0.84 Glucose 89 123 H Calcium 8.9 8.0 L 09/06/18 09/06/18 09/06/18 17:41 19:15 22:23 Sodium 119 L* 122 L 128 L Potassium 3.2 L 3.6 Chloride 90 L 96 L Carbon Dioxide 21 L 19 L BUN 18 15 Creatinine 0.68 0.52 L Glucose 141 H 127 H Calcium 8.9 8.5 L 09/07/18 09/07/18 09/07/18 01:35 04:05 08:52 Sodium 128 L 128 L 124 L Potassium 3.4 L 3.2 L 3.2 L Chloride 96 L 96 L 96 L Carbon Dioxide 19 L 19 L 19 L BUN 15 14 16 Creatinine 0.48 L 0.39 L 0.56 L Glucose 140 H 154 H 159 H Calcium 8.2 L 8.4 L 9.1 Cardiac Enzymes 09/06/18 09/06/18 09/07/18 Range/Units 13:10 19:15 01:35 Troponin I 0.11 H* 0.10 H* 0.08 H* (< 0.04) ng/mL Urine 09/06/18 Range/Units 19:30 Urine Color Yellow (Yellow) Urine Clarity Clear (Clear) Urine pH 7.0 (5.0-8.0) pH Units Ur Specific Barre 1.008 L (1.010-1.025) Urine Protein 30 H (Neg-Trace) mg/dL Urine Glucose (UA) Normal (Normal) mg/dL - Impressions Impressions Chest X-Ray 09/06/18 13:12 IMPRESSION: Right basilar consolidation can reflect pneumonia. Given the nodular configuration, underlying pulmonary mass cannot be excluded. Follow-up to resolution is recommended. If this does not resolve, chest CT would be recommended for further evaluation. D/ / Mookie Madison MD / Mookie Madison MD Interpreting Provider: Mookie Madison MD Chest CTA 09/06/18 14:11 IMPRESSION: Multifocal bilateral heterogeneous and nodular infiltrate, most confluent within the right lower lobe, likely reflecting pneumonia. CT follow-up to complete resolution is recommended to exclude the less likely possibility of neoplasm. No gross findings of pulmonary embolism. Atherosclerosis, including coronary artery calcification. D/ / Mookie Madison MD / Mookie Madison MD Interpreting Provider: Mookie Madison MD Echocardiogram 09/06/18 16:16 Impressions: LVEF 60-65%. Normal LV chamber size, wall thickness and function. Normal left ventricular diastolic function. Normal right ventricular structure and function. No evidence of pulmonary hypertension. No significant valvular dysfunction Left Ventricular Wall Motion: Rest Echo Findings All wall segments showed normal motion. Findings: Study Quality * Technically sub-optimal due to poor echocardiographic windows. ECG Findings * Normal sinus rhythm. Left Ventricle * LVEF 60-65%. * Normal LV chamber size, wall thickness and function. * Normal left ventricular diastolic function. Right Ventricle * Normal right ventricular structure and function. Left Atrium * Normal left atrial size. Right Atrium * Normal right atrial size. Interatrial Septum * Interatrial septum not well evaluated. Aortic Valve * Trileaflet aortic valve. * Normal aortic valve structure. * No aortic regurgitation. * No aortic stenosis. Mitral Valve * No mitral stenosis. * Normal mitral valve structure. * Trace mitral regurgitation. Tricuspid Valve * Trace tricuspid regurgitation. * No tricuspid stenosis. * Normal tricuspid valve structure. * No evidence of pulmonary hypertension. Pulmonic Valve * Pulmonic valve not well visualized. Aorta * Normally sized aortic root. Pericardium * The pericardium appears normal. IVC * Normal IVC dimensions and inspiratory collapse. Pulmonary Artery * Pulmonary artery not well visualized. Head CT 09/06/18 19:00 IMPRESSION: No acute intracranial abnormalities. Anterior translation at the right TMJ similar to prior recent CT may be degenerative. D/ / Nina Laura MD / Nina Laura MD Interpreting Provider: Nina Laura MD Chest X-Ray 09/06/18 19:28 IMPRESSION: Right internal jugular central venous catheter placement with the tip near the cavoatrial junction. Right lower lobe consolidation. Recommend follow-up to exclude an underlying lesion. D/ / 09/06/2018 21:17:06 Fernando Swartz MD / manfred Interpreting Provider: Fernando Swartz MD Consult Discharge Plan - Plan Referrals: Ant Sloan [Partnered Physician] - 09/15/18 1:45 pm (1) CAP (community acquired pneumonia) Qualifiers: Laterality: right Lung location: lower lobe of lung Qualified Code(s): J18.1 - Lobar pneumonia, unspecified organism (2) Leukopenia Qualifiers: Neutropenia type: unspecified Qualified Code(s): D70.9 - Neutropenia, unspecified (6) HTN (hypertension) Qualifiers: Hypertension type: essential hypertension Qualified Code(s): I10 - Essential (primary) hypertension
--- NOTE | 2018-09-07 11:31 | Electrocardiograph Report ---
[facility] [employer] Test Date: 2018-09-06 Pat Name: Annette Paul Department: EXAM7 Room: 2N14 Gender: F It Technical Support Specialist: : [id number] Requested By: Emilio Sevilla Order Number: [id number] Reading MD: Cody Fonseca Measurements Intervals [place] Rate: 77 P: -45 TN: 198 QRS: 80 QRSD: 90 T: 66 QT: 408 QTc: 462 Interpretive Statements Normal sinus rhythm Minimal ST depression, inferior leads Electronically Signed On 09-07-2018 11:30:04 EDT by Cody Fonseca
[2018-09-07] MEDS: Menthol 9.1 MG LOZENGE PO PRN ×2 (11:52→15:13)
[2018-09-07] MEDS ORDERED: 0.9 % Sodium Chloride 500 ML IVC SCH (12:15)
[2018-09-07 13:34] LABS: BUN/Creatinine Ratio 29 (6-26); Blood Urea Nitrogen 17 mg/dL (6-20); Calcium 8.3 mg/dL (8.6-10.3); Carbon Dioxide 20 mEq/L (23-29); Chloride 97 mEq/L (98-107); Glucose 164 mg/dL (70-105); Osmolality,Calculated 265 (280-300); Potassium 3.1 mEq/L (3.5-5.1); Sodium 125 mEq/L (136-145); eGFR For Non-African Americans > 60 (> 60)
[2018-09-07] MEDS ORDERED: Azithromycin 500 MG in D5% in Water 250 ML IVPB SCH (14:00)
[2018-09-07 14:52] LABS: ABG Base Excess -4 mEq/L (-2 to 3); ABG HCO3 19 mEq/L (21-27); ABG Oxygen Saturation 91 % (95-98); ABG PCO2 30 mmHg (35-45); ABG PH 7.42 pH Units (7.32-7.45); ABG PO2 59 mmHg (85-104); ABG TCO2 20 mEq/L (20-26)
[2018-09-07 17:30] LABS: BUN/Creatinine Ratio 34 (6-26); Blood Urea Nitrogen 20 mg/dL (6-20); Carbon Dioxide 20 mEq/L (23-29); Chloride 98 mEq/L (98-107); Glucose 108 mg/dL (70-105); Osmolality,Calculated 263 (280-300); Potassium 3.2 mEq/L (3.5-5.1); Sodium 125 mEq/L (136-145); eGFR For Non-African Americans > 60 (> 60)
[2018-09-07] MEDS: Thiamine (B-1) 100 MG, Folic Acid 1 MG, MVI, adult with vitamin K 10 ML in 0.9 % Sodi... IVPB SCH (18:12)
[2018-09-07] MEDS: Pantoprazole 40 MG VIAL IVP SCH (21:07)
[2018-09-07 22:08] LABS: BUN/Creatinine Ratio 30 (6-26); Blood Urea Nitrogen 22 mg/dL (6-20); Calcium 8.5 mg/dL (8.6-10.3); Carbon Dioxide 20 mEq/L (23-29); Chloride 99 mEq/L (98-107); Glucose 93 mg/dL (70-105); Osmolality,Calculated 265 (280-300); Potassium 3.1 mEq/L (3.5-5.1); Sodium 126 mEq/L (136-145); eGFR For Non-African Americans > 60 (> 60)
[2018-09-08] MEDS: Ipratropium/Albuterol Neb 3 ML IH SCH ×4 (04:13→21:56)
[2018-09-08 04:41] LABS: Mean Platelet Volume 10.1 fL (9.4-12.4); Red Cell Distribution Width 12.5 % (11.5-14.5)
[2018-09-08 04:43] LABS: Hemoglobin 9.5 g/dL (11.5-15.4); Immature Platelets 4.9 % (1.1-6.1); Lymphocytes # 0.3 K/mcL (0.6-4.6); Mean Corpuscular HGB Conc 35.2 g/dL (31.6-35.5); Mean Corpuscular Hemoglobin 35.3 pg (28.0-33.3); Mean Corpuscular Volume 100.4 fL (83.0-100.0); Monocytes # 0.2 K/mcL (0.0-1.3); Platelet Count 106 K/mcL (140-400); Red Blood Count 2.69 M/mcL (3.82-4.97)
[2018-09-08 05:00] LABS: BUN/Creatinine Ratio 34 (6-26); Blood Urea Nitrogen 24 mg/dL (6-20); Calcium 8.2 mg/dL (8.6-10.3); Carbon Dioxide 19 mEq/L (23-29); Chloride 102 mEq/L (98-107); Glucose 72 mg/dL (70-105); Osmolality,Calculated 271 (280-300); Potassium 2.9 mEq/L (3.5-5.1); Sodium 129 mEq/L (136-145); eGFR For Non-African Americans > 60 (> 60)
[2018-09-08 05:13] LABS: Neutrophils # 3.7 K/mcL (1.6-8.9)
[2018-09-08 05:14] LABS: Platelet Estimate Decreased (Normal); Toxic Granulation Present (Not Present); Toxic Vacuolation Present (Not Present)
[2018-09-08] MEDS: *HR* Heparin 5,000 UNIT/ML VIAL SQ SCH ×3 (06:09→21:14)
[2018-09-08] MEDS: Nicotine 14 MG PATCH.TD24 TD SCH (08:26)
[2018-09-08] MEDS: FLUoxetine HCl 10 MG CAPSULE PO SCH (08:31)
[2018-09-08] MEDS: Gabapentin 300 MG CAPSULE PO SCH (08:31)
[2018-09-08] MEDS: Levofloxacin 750 MG/150 ML 750 MG/150 ML BAG IVPB SCH (08:31)
[2018-09-08] MEDS: Pantoprazole 40 MG VIAL IVP SCH (08:31)
[2018-09-08] MEDS: Potassium Chloride Elixir 20 MEQ/15 ML UDC PO SCH ×2 (11:20→14:46)
[2018-09-08] MEDS: Menthol 9.1 MG LOZENGE PO PRN (11:22)
--- NOTE | 2018-09-08 12:06 | Nephrology Progress Note ---
Date of Encounter: 09/08/18 Time of Encounter: 10:15 - Assessment and Plan (1) Hyponatremia Current Visit: Yes Status: Acute Continue to correct the hyponatremia, which is slowly and now safely improving. Continue to replete the hypokalemia and hypomagnesemia. I recommend continuing a free water fluid restriction, NaCl tablets. Given that she is so nicely improving and is now at a much lower risk, I will politely sign-off, but please feel free to call or page me with any nephrology questions. Thank you for having consulted the [facility] on this complex, pt who required a high degree of MDM and E/M. (2) Hypokalemia Current Visit: Yes Status: Acute Replete as needed (3) Hypomagnesemia Current Visit: Yes Status: Acute Replete as needed. Multi-electrolyte deficiencies are often noted in pt's with alcoholism (that associates with malnutrition). (4) Daily consumption of alcohol Current Visit: Yes Status: Acute I counseled her to cut back and quite drinking plus improve her nutritional intake, which would help prevent future electrolyte problems. Subjective Principal diagnosis: hyponatremia Interval history: The pt was seen/examined earlier in the day. She did not affirm N/V/D and voiced that she was starting to feel more energy with less fatigue and overall better. Objective - Vital Signs Vital signs: Vital Signs Temp Pulse Resp BP Pulse Ox 09/08/18 11:18 98.0 F 79 18 109/80 96 09/08/18 10:57 66 09/08/18 10:54 18 95 09/08/18 07:50 68 09/08/18 07:16 97.9 F 70 18 118/90 99 09/08/18 04:28 97.6 F 67 16 74/55 96 09/08/18 04:13 17 96 09/08/18 01:20 86/58 09/07/18 23:39 98.3 F 72 18 73/48 95 09/07/18 22:03 16 96 09/07/18 20:42 78/40 09/07/18 19:37 98.5 F 78 16 86/58 91 09/07/18 16:39 98.2 F 75 18 90/54 97 09/07/18 16:14 80 09/07/18 15:22 16 94 09/07/18 15:00 111/82 05/21/19 14:45 99/63 09/07/18 14:15 84 90/76 09/07/18 13:45 79 82/54 09/07/18 13:30 78 74/45 09/07/18 13:15 82 74/47 09/07/18 13:00 79 82/54 09/07/18 12:45 82 89/61 09/07/18 12:30 82 85/57 09/07/18 12:15 80 83/69 Intake and Output 09/07/18 09/08/18 09/08/18 23:59 07:59 15:59 Intake Total 800 / 2655.2 511.2 / 661.2 150 / 661.2 Output Total 750 / 1800 500 / 1200 700 / 1200 Balance 50 / 855.2 11.2 / -538.8 -550 / -538.8 Intake: IV Fluids 500 / 2355.2 511.2 / 661.2 150 / 661.2 0.9 % Sodium Chloride 500 ML @ 500 / 500 75 mls/hr IVC .Q6H40M [facility] Rx#: [id number] Levaquin Premix 750mg/150 mL 150 / 150 750 mg In 150 ml @ 100 mls/hr IVPB DAILY [facility] Rx#:[id number] Vitamin B-1 100 MG Folvite 1 MG 511.2 / 511.2 M.v.i. Adult 10 ml In 0.9 % Sodium Chloride 500 ML @ 85.2 mls/hr IVPB DAILY@1800 [facility] Rx#: [id number] Oral 300 / 300 Output: Catheter 750 / 1800 500 / 1200 700 / 1200 Other: Meal Dinner Percent of Meal Consumed 10% Weight 64.3 kg Patient Weight 09/08/18 23:59 Weight 64.3 kg - General Appearance General appearance: Present: well-developed, appears started age, cachectic EENT: Present: ATNC, PERRL, mucous membranes moist Neck: Present: supple Respiratory: Present: rales, course breath sounds, rhonchi Cardiology: Present: no edema, regular rate, regular rhythm, normal S1, normal S2 Gastrointestinal: Present: no tenderness, no guarding Integumentary: Present: warm and dry, ecchymotic Neurologic: Present: no focal deficit, alert and oriented x3 Musculoskeletal: Present: no erythema, no cyanosis Psychiatric: Present: mood/affect appropriate, cooperative - Lab 09/09/18 03:45 09/09/18 03:45 Most recent lab results 09/08/18 04:25 Calcium 8.2 L Consult Discharge Plan - Plan Referrals: Ant Sloan [Partnered Physician] - 09/15/18 1:45 pm
[2018-09-08] MEDS: GuaiFENesin/Codeine Oral Soln 5 ML UDC PO PRN ×2 (14:46→19:13)
--- NOTE | 2018-09-08 16:34 | Internal Med Progress Note ---
Hospitalist Progress Note - Encounter Date of Encounter: 09/08/18 Time of Encounter: 11:00 - Subjective Interval History: No acute events overnight - Exam Vitals: Temp Pulse Resp BP Pulse Ox 98.0 F 79 18 121/79 100 09/08/18 16:31 09/08/18 16:31 09/08/18 16:31 09/08/18 16:31 09/08/18 16:31 Exam: General appearance: No acute distress, A&O X 3, appears tired with intermittent cough. Family at bedside Eye exam: EOMI, PERRLA ENT exam: Moist oral mucosa Neck nontender, supple Respiratory exam: Decreased breath sound bilaterally with few scattered rhonchi Cardiovascular exam: Regular rate and rhythm, no systolic murmur Abdominal exam: Soft, nontender, nondistended, positive bowel sounds Extremities exam: No calf tenderness, no pedal edema Present: Skin-no rash, warm, dry, intact(Healing laceration superior lip, ecchymosis right cheek) Neurological exam: Alert, awake, oriented 3, CN II-XII intact, no focal deficits. No facial droop. Normal speech. - Assessment and Plan (1) Hyponatremia Current Visit: Yes Status: Acute Assessment and Plan: Patient with severe symptomatic hyponatremia sodium level 118 --> 115 --> 119 in the setting of hypovolemia/ beer potomania/ alcoholism/ HCTZ use/ PNA. Patient was given 1 L normal saline IV fluid bolus in the ED. 1.2 L fluid restriction diet Sodium chloride tablets ordered TID Received one dose of 100ml hypertonic saline which has been discontinued Now on D5Wand making good urine. Monitor repeat BMP (2) CAP (community acquired pneumonia) Current Visit: Yes Status: Acute Assessment and Plan: Patient with leukopenia WBC 1.5, productive cough, and CT chest reveals multifocal bilateral heterogeneous and nodular infiltrate, most confluent within the right lower lobe, likely reflecting pneumonia. CT follow-up to complete resolution is recommended to exclude the less likely possibility of neoplasm. Lactic acid 2.4--> 1.6 Urine Legionella and strep pneumo antigens pending Respiratory infection panel ordered Continue Rocephin and azithromycin IV (3) Chronic alcohol use Current Visit: Yes Status: Chronic Assessment and Plan: Patient drinks 6-7 beers daily. Banana bag ordered. Continue Ativan per [place] protocol. Social work consulted (4) Leukopenia Current Visit: Yes Status: Acute Assessment and Plan: Patient resting with leukopenia, worsen than baseline. Likely related to sepsis versus bone marrow suppression from alcoholism. Continue close monitoring (5) Tobacco abuse Current Visit: Yes Status: Chronic Assessment and Plan: Tobacco cessation discussed. Nicotine patch ordered. (6) Elevated troponin Current Visit: Yes Status: Acute Assessment and Plan: Initial troponin level 0.11 and not trending down. Most likely demand ischemia due to acute illness sepsis. BNP elevated 2599-be cautious in volume resuscitation Patient denies chest pain, EKG shows no signs of ischemia Echo Impressions: LVEF 60-65%. Normal LV chamber size, wall thickness and function. Normal left ventricular diastolic function. Normal right ventricular structure and function. No evidence of pulmonary hypertension. No significant valvular dysfunction Left Ventricular Wall Motion: Rest Echo Findings All wall segments showed normal motion. (7) Recurrent falls Current Visit: Yes Status: Acute Assessment and Plan: Most likely due to above. Patient with history of alcoholism and severe hyponatremia. Patient has an ecchymosis on her right cheek and laceration on her superior lip after a fall a few days ago. CT brain with no acute finding. Continue pain control. Fall precautions. PT/OT consulted. (8) Hypokalemia Current Visit: Yes Status: Acute Assessment and Plan: Potassium 3.1. Supplement potassium, continue monitoring (9) Hypomagnesemia Current Visit: Yes Status: Acute Assessment and Plan: Replacement and monitoring. (10) HTN (hypertension) Current Visit: Yes Status: Chronic Assessment and Plan: At present low blood pressure. Most likely due to underlying sepsis. Talk to her patient registration clerk about fluid resuscitation and he advise to continue gentle hydration with few small boluses if really need otherwise continue monitor. A started normal saline 75 mL per hour and repeat blood pressure later in the day is started to improve. Hold home antihypertensive medicine. Continue monitoring. (11) DVT prophylaxis Current Visit: Yes Status: Acute Assessment and Plan: Heparin subcutaneous - Time Spent with Patient Total time spent is greater than 50% in coordination of care (as documented) at patient's floor/unit and/or counseling patient: Internal Medicine: Result - Labs CBC & Chem 7: 09/08/18 04:25 09/08/18 04:25 Labs: Short CBC 09/08/18 Range/Units 04:25 WBC 4.3 D (4.3-11.1) K/mcL Hgb 9.5 L D (11.5-15.4) g/dL Hct 27.0 L (35.3-44.9) % Plt Count 106 L (140-400) K/mcL Neutrophils # 3.7 (1.6-8.9) K/mcL BMP 09/07/18 09/07/18 09/08/18 16:58 21:30 04:25 Sodium 125 L 126 L 129 L Potassium 3.2 L 3.1 L 2.9 L Chloride 98 99 102 Carbon Dioxide 20 L 20 L 19 L BUN 20 22 H 24 H Creatinine 0.58 L 0.73 0.70 Glucose 108 H 93 72 Calcium 9.0 8.5 L 8.2 L - ABG Interpretation ABG results: ABG ABG pH 7.42 pH Units (7.32-7.45) 09/07/18 14:47 ABG pCO2 30 mmHg (35-45) L 09/07/18 14:47 ABG pO2 59 mmHg (85-104) L 09/07/18 14:47 ABG O2 Saturation 91 % (95-98) L 09/07/18 14:47 Consult Discharge Plan - Plan Referrals: Ant Sloan [Partnered Physician] - 09/15/18 1:45 pm (2) CAP (community acquired pneumonia) Qualifiers: Laterality: right Lung location: lower lobe of lung Qualified Code(s): J18.1 - Lobar pneumonia, unspecified organism (4) Leukopenia Qualifiers: Neutropenia type: unspecified Qualified Code(s): D70.9 - Neutropenia, unspecified (10) HTN (hypertension) Qualifiers: Hypertension type: essential hypertension Qualified Code(s): I10 - Essential (primary) hypertension
[2018-09-08] MEDS: Thiamine (B-1) 100 MG, Folic Acid 1 MG, MVI, adult with vitamin K 10 ML in 0.9 % Sodi... IVPB SCH (18:48)
[2018-09-08 20:30] LABS: Adenovirus Not Detected (Not Detect); Bordetella Pertussis Not Detected (Not Detect); Chlamydophila pneumoniae Not Detected (Not Detect); Coronavirus 229E Not Detected (Not Detect); Coronavirus HKU1 Not Detected (Not Detect); Coronavirus NL63 Not Detected (Not Detect); Coronavirus OC43 Not Detected (Not Detect); Human Metapneumovirus Not Detected (Not Detect); Human Rhinovirus/Enterovirus DETECTED (Not Detect); Influenza A Subtype 2009 H1 Not Detected (Not Detect); Influenza A Untypeable Not Detected (Not Detect); Influenza B Not Detected (Not Detect); Mycoplasma pneumoniae Not Detected (Not Detect); Parainfluenza Virus 1 Not Detected (Not Detect); Parainfluenza Virus 2 Not Detected (Not Detect); Parainfluenza Virus 3 Not Detected (Not Detect); Parainfluenza Virus 4 Not Detected (Not Detect); Respiratory Syncytial Virus Not Detected (Not Detect)
[2018-09-09] MEDS: Ipratropium/Albuterol Neb 3 ML IH SCH ×3 (03:10→16:07)
[2018-09-09 04:44] LABS: Hematocrit 30.1 % (35.3-44.9); Hemoglobin 10.5 g/dL (11.5-15.4); Lymphocytes # 0.6 K/mcL (0.6-4.6); Mean Corpuscular HGB Conc 34.9 g/dL (31.6-35.5); Mean Corpuscular Hemoglobin 35.4 pg (28.0-33.3); Mean Corpuscular Volume 101.3 fL (83.0-100.0); Mean Platelet Volume 10.6 fL (9.4-12.4); Platelet Count 122 K/mcL (140-400); Red Blood Count 2.97 M/mcL (3.82-4.97); Red Cell Distribution Width 12.9 % (11.5-14.5)
[2018-09-09 05:10] LABS: Monocytes # 0.1 K/mcL (0.0-1.3); Platelet Estimate Slight Decrease (Normal)
[2018-09-09 05:21] LABS: BUN/Creatinine Ratio 22 (6-26); Blood Urea Nitrogen 11 mg/dL (6-20); Calcium 9.1 mg/dL (8.6-10.3); Carbon Dioxide 16 mEq/L (23-29); Chloride 107 mEq/L (98-107); Glucose 87 mg/dL (70-105); Osmolality,Calculated 271 (280-300); Sodium 131 mEq/L (136-145); eGFR For Non-African Americans > 60 (> 60)
[2018-09-09] MEDS: *HR* Heparin 5,000 UNIT/ML VIAL SQ SCH ×2 (06:49→15:34)
[2018-09-09] MEDS: Gabapentin 300 MG CAPSULE PO SCH (09:07)
[2018-09-09] MEDS: FLUoxetine HCl 10 MG CAPSULE PO SCH (09:07)
[2018-09-09] MEDS: Pantoprazole 40 MG VIAL IVP SCH (09:07)
[2018-09-09] MEDS: Levofloxacin 750 MG/150 ML 750 MG/150 ML BAG IVPB SCH (09:07)
[2018-09-09] MEDS: Nicotine 14 MG PATCH.TD24 TD SCH (09:08)
[2018-09-09 09:27] LABS: Magnesium 1.4 mg/dL (1.6-2.6); Phosphorous < 1.0 mg/dL (2.7-4.5)
--- NOTE | 2018-09-09 09:33 | Discharge Summary ---
Date of Encounter: 09/09/18 Time of Encounter: 09:00 - Discharge Diagnosis (1) Hyponatremia Priority: Primary Status: Acute Assessment and Plan: 48 year old female with a past medical history of hypertension, alcoholism, and tobacco dependence who presented to the ED complaining of difficulty walking, productive cough, confusion, headache, and weakness for the past 5 days. Patient reports associated 6 pounds unintentional weight loss and night sweats. is at bedside, and reports the patient has been very weak and falling over the past month. Her has to help her walk to the bathroom. She sustained a laceration to her lip and has bruising under her right eye from a fall a few days ago. Patient reports associated headaches but denies blurry/ double vision. Patient reports drinking 6-7 beers per day. In the ED, labs revealed a leukopenia WBC 1.5, sodium level 118, chloride 78, carbon dioxide 20, lactic acid 2.4, troponin 0.11, and BNP 2599. CTA chest revealed multifocal bilateral heterogeneous and nodular infiltrate, most confluent within the right lower lobe, likely reflecting pneumonia She was assessed with generalized weakness secondary to alcohol abuse, pneumonia and electrolyte abnormalities with hyponatremia. She was started on antibiotics with ceftriaxone and azthromycin, and fluid restriction for her hyponatremia. Her sodium levels improved and her overall status improved with the pneumonia treatment. She was seen by PT who recommended rehab but patient declined and says she wants to go home. She was discharged home in a stable condition. 35 minutes was spent discharging this patient (2) CAP (community acquired pneumonia) Priority: Primary Status: Acute Qualifiers: Laterality: right Lung location: lower lobe of lung Qualified Code(s): J18.1 - Lobar pneumonia, unspecified organism (3) Chronic alcohol use Priority: Primary Status: Chronic (4) Leukopenia Priority: Primary Status: Acute Qualifiers: Neutropenia type: unspecified Qualified Code(s): D70.9 - Neutropenia, unspecified (5) Tobacco abuse Priority: Primary Status: Chronic (6) Elevated troponin Priority: Primary Status: Acute (7) Recurrent falls Priority: Primary Status: Acute (8) Hypokalemia Priority: Primary Status: Acute (9) Hypomagnesemia Priority: Primary Status: Acute (10) HTN (hypertension) Priority: Primary Status: Chronic Qualifiers: Hypertension type: essential hypertension Qualified Code(s): I10 - Essential (primary) hypertension (11) DVT prophylaxis Priority: Primary Status: Acute Hospital course: Ms. Paul is a 48 year old female - Time Spent with Patient Total time spent providing and/or coordinating discharge services: - Discharge Medications Prescriptions: Continued Propranolol HCl 40 mg PO TID Methocarbamol [Robaxin] 750 mg PO Q6-8H PRN PRN Reason: Muscle Pain Gabapentin [Neurontin] 300 mg PO DAILY Cholecalciferol (Vitamin D3) [Vitamin D3] 5,000 unit PO DAILY Folic Acid 1 mg PO DAILY #30 tablet Thiamine (B-1) [Vitamin B-1] 100 mg PO DAILY 30 Days #30 tablet Cyanocobalamin (B-12) [Vitamin B12] 1,000 mcg SQ QMONTH 11 Days #1 vial hydroCHLOROthiazide [Hydrochlorothiazide] 12.5 mg PO DAILY Albuterol Sulfate [Albuterol Inhaler] 2 puff IH Q6H PRN #1 unit PRN Reason: Cough Ibuprofen [Motrin] 800 mg PO Q8HR PRN #50 tablet PRN Reason: Pain FLUoxetine HCl [Fluoxetine HCl] 10 mg PO DAILY Ipratropium [ATROVENT Inhaler] 1 puff IH TID Esomeprazole Magnesium [Nexium] 20 mg PO DAILY Home Medications: Gabapentin [Neurontin] 300 mg PO DAILY 02/03/17 [History] Methocarbamol [Robaxin] 750 mg PO Q6-8H PRN 02/03/17 [History] Propranolol HCl 40 mg PO TID 02/03/17 [History] Cholecalciferol (Vitamin D3) [Vitamin D3] 5,000 unit PO DAILY 05/04/17 [History] Folic Acid 1 mg PO DAILY #30 tablet 05/08/17 [Rx] Thiamine (B-1) [Vitamin B-1] 100 mg PO DAILY 30 Days #30 tablet 05/08/17 [Rx] Cyanocobalamin (B-12) [Vitamin B12] 1,000 mcg SQ QMONTH 11 Days #1 vial 05/18/17 [Rx] Albuterol Sulfate [Albuterol Inhaler] 2 puff IH Q6H PRN #1 unit 06/05/18 [Rx] Ibuprofen [Motrin] 800 mg PO Q8HR PRN #50 tablet 06/05/18 [Rx] hydroCHLOROthiazide [Hydrochlorothiazide] 12.5 mg PO DAILY 06/05/18 [History] Esomeprazole Magnesium [Nexium] 20 mg PO DAILY 09/06/18 [History] FLUoxetine HCl [Fluoxetine HCl] 10 mg PO DAILY 09/06/18 [History] Ipratropium [ATROVENT Inhaler] 1 puff IH TID 09/06/18 [History] Allergies/Adverse Reactions: Allergy/AdvReac Type Severity Reaction Status Date / Time celecoxib [From Celebrex] Allergy Hives Verified 09/06/18 12:54 Penicillins Allergy Hives Verified 09/06/18 12:54 Date of admission: 09/06/18 15:47 Primary care physician: PCP NONE Consults: 09/06/18 15:37 Consult to Nephrology [CONS] Stat Consulting Provider: Kidney Sylvia/CHELSY/MEME/TRISTON Reason for Consult: Hyponatremia Hx alcoholism Time Notified: 15:38 Call Completed: Yes 09/06/18 15:51 Consult to Nurse Navigator [CONS] Routine Comment: 09/06/18 15:59 Consult to Occupational Therapy [CONS] Routine Comment: Evaluate, develop and implement POC Reason for Consult: weakness Does patient have active BEDREST order?: No Is patient medically & hemodynamically stable?: Yes Patient assessed for mobility or mobilized this visit?: No Consult to Physical Therapy [CONS] Routine Comment: Evaluate, develop and implement POC Reason for Consult: weakness Does patient have active BEDREST order?: Yes Is patient medically & hemodynamically stable?: No Patient assessed for mobility or mobilized this visit?: Yes 09/06/18 16:00 Consult to Welding Pantograph Machine Operator [CONS] Routine Reason for SW Consult: ETOH abuse 09/06/18 17:20 Consult to Nutrition [CONS] Routine Comment: Consulting Provider: NUTRITION Reason for Dietary Consult: MST Score 09/07/18 11:06 Consult to Respiratory Therapy [CONS] Routine Reason for Consult: chest precussion Call Completed: No - Constitutional Vitals: Temp Pulse Resp BP Pulse Ox 97.7 F 87 18 119/89 99 09/09/18 06:33 09/09/18 06:33 09/09/18 08:11 09/09/18 06:33 09/09/18 08:11 General appearance: Present: cooperative, mild distress, A&O X 3, pleasant, answers questions appropriately Exam: General appearance: No acute distress, A&O X 3, appears tired with intermittent cough. Family at bedside Eye exam: EOMI, PERRLA ENT exam: Moist oral mucosa Neck nontender, supple Respiratory exam: Decreased breath sound bilaterally with few scattered rhonchi Cardiovascular exam: Regular rate and rhythm, no systolic murmur Abdominal exam: Soft, nontender, nondistended, positive bowel sounds Extremities exam: No calf tenderness, no pedal edema Present: Skin-no rash, warm, dry, intact(Healing laceration superior lip, ecchymosis right cheek) Neurological exam: Alert, awake, oriented 3, CN II-XII intact, no focal deficits. No facial droop. Normal speech. - Patient Status Disposition: Hospice - Home Condition: Fair - Discharge Instructions Follow Up With: Ant Sloan [Partnered Physician] - 09/15/18 1:45 pm
[2018-09-09] MEDS: GuaiFENesin/Codeine Oral Soln 5 ML UDC PO PRN ×2 (10:37→18:22)
[2018-09-09 12:10] VITALS: BP 117/77
[2018-09-09] MEDS: Acetaminophen 325 MG TABLET PO PRN (17:08)
== END 2018-09-09 19:01 | disposition hospice, home (50) | DRG 871 ==
LOC: EMEROOARM 12:49 → 2NNU 15:47
PROVIDERS: ADMIT Internal Medicine Nephrology; ATTEND Internal Medicine Nephrology

== ENCOUNTER 2019-09-09 08:49 | Observation (INO) ==
[2019-09-09] MEDS ORDERED: *HR* HYDROmorphone (PF) 1 MG/ML SYRINGE IVP ONE ×2 (11:35→13:19)
[2019-09-09 11:57] LABS: Basophils % 0.7 %; Eosinophils % 0.5 %; Hemoglobin 13.5 g/dL (11.5-15.4); Immature Granulocytes % 0.7 % (0-4); Lymphocytes # 0.4 K/mcL (0.6-4.6); Lymphocytes % 9.7 %; Mean Corpuscular HGB Conc 34.6 g/dL (31.6-35.5); Mean Corpuscular Hemoglobin 36.3 pg (28.0-33.3); Mean Corpuscular Volume 104.8 fL (83.0-100.0); Mean Platelet Volume 9.5 fL (9.4-12.4); Monocytes # 0.4 K/mcL (0.0-1.3); Monocytes % 9.7 %; Neutrophils # 3.4 K/mcL (1.6-8.9); Platelet Count 103 K/mcL (140-400); Red Blood Count 3.72 M/mcL (3.82-4.97); Red Cell Distribution Width 13.3 % (11.5-14.5); Segmented Neutrophils % 78.7 %; White Blood Count 4.3 K/mcL (4.3-11.1)
[2019-09-09 12:17] LABS: BUN/Creatinine Ratio 15 (6-26); Blood Urea Nitrogen 6 mg/dL (6-20); Calcium 9.3 mg/dL (8.6-10.3); Carbon Dioxide 24 mEq/L (23-29); Chloride 91 mEq/L (98-107); Glucose 87 mg/dL (70-105); Osmolality,Calculated 259 (280-300); Potassium 3.4 mEq/L (3.5-5.1); Sodium 126 mEq/L (136-145); eGFR For African Americans > 60 (> 60); eGFR For Non-African Americans > 60 (> 60)
[2019-09-09] MEDS ORDERED: *HR* HYDROcodone/Acet 5/325 mg TABLET PO ONE (13:20)
[2019-09-09] MEDS ORDERED: Naloxone 0.4 MG/ML INJ IVP PRN (14:25)
[2019-09-09] MEDS ORDERED: Ondansetron 4 MG/2 ML VIAL IVP PRN (14:25)
[2019-09-09] MEDS ORDERED: *HR* OxyCODONE/APAP 5/325 TABLET PO PRN (14:27)
[2019-09-09] MEDS ORDERED: *HR* OxyCODONE/APAP 10/325 TABLET PO PRN (14:27)
[2019-09-09] MEDS ORDERED: 0.9 % Sodium Chloride 1,000 ML IVC SCH (14:30)
[2019-09-09] MEDS ORDERED: Ipratropium/Albuterol Neb 3 ML IH PRN (15:22)
[2019-09-09] MEDS ORDERED: methocarbamoL 750 MG TABLET PO PRN (15:27)
[2019-09-09 15:45] VITALS: BP 128/85
[2019-09-09] MEDS ORDERED: *HR* OxyCODONE Immed Rel 5 MG TABLET PO PRN (16:08)
[2019-09-09] MEDS ORDERED: Gabapentin 300 MG CAPSULE PO SCH (21:00)
[2019-09-10] MEDS ORDERED: Thiamine (B-1) 100 MG TABLET PO SCH (09:00)
[2019-09-10] MEDS ORDERED: Folic Acid 1 MG TABLET PO SCH (09:00)
[2019-09-10] MEDS ORDERED: hydroCHLOROthiazide 25 MG TABLET PO SCH (09:00)
[2019-09-10] MEDS ORDERED: FLUoxetine 20 MG CAPSULE PO SCH (09:00)
[2019-09-10] MEDS ORDERED: Cholecalciferol (D-3) 1,000 UNIT (25MCG) TABLET PO SCH (09:00)
[2019-09-19] MEDS ORDERED: Cyanocobalamin (B-12) 1,000 MCG/ML VIAL SQ SCH (09:00)
== END 2019-09-09 18:32 | disposition home or self-care (01) ==
LOC: EMEROOARM 08:49 → 3NENU 08:49
PROVIDERS: ADMIT Internal Medicine; ATTEND Internal Medicine

== ENCOUNTER 2020-03-23 10:13 | Observation (INO) ==
[2020-03-23] MEDS ORDERED: 0.9 % Sodium Chloride 1,000 ML IVC ONE (11:27)
[2020-03-23] MEDS ORDERED: Cefepime HCl 2,000 MG in Water for inj. (sterile) 20 ML IVP ONE (11:27)
[2020-03-23] MEDS ORDERED: *HR* HYDROcodone/Acet 5/325 mg TABLET PO ONE (11:29)
[2020-03-23] MEDS ORDERED: Tdap (Boostrix) Vaccine 0.5 ML SYRINGE IM ONE (11:41)
[2020-03-23 12:45] LABS: Red Blood Count 3.54 M/mcL (3.82-4.97)
[2020-03-23 12:46] LABS: Eosinophils % 0.7 %; Hemoglobin 12.6 g/dL (11.5-15.4); Immature Granulocytes % 0.3 % (0-4); Lymphocytes # 0.7 K/mcL (0.6-4.6); Lymphocytes % 21.6 %; Mean Corpuscular HGB Conc 34.1 g/dL (31.6-35.5); Mean Corpuscular Hemoglobin 35.6 pg (28.0-33.3); Mean Platelet Volume 10.8 fL (9.4-12.4); Monocytes # 0.4 K/mcL (0.0-1.3); Monocytes % 12.6 %; Neutrophils # 1.9 K/mcL (1.6-8.9); Red Cell Distribution Width 13.3 % (11.5-14.5); Segmented Neutrophils % 63.8 %
[2020-03-23 12:47] LABS: Mean Corpuscular Volume 104.5 fL (83.0-100.0); Platelet Count 94 K/mcL (140-400)
[2020-03-23 12:48] LABS: Prothrombin Time 11.3 Seconds (9.4-12.1)
[2020-03-23 12:51] LABS: Activated Partial Thrombo Time 30.7 Seconds (26.0-36.0)
[2020-03-23 13:30] LABS: C-Reactive Protein < 5 mg/L (Less than 10); Troponin I < 0.03 ng/mL (< 0.04)
[2020-03-23] MEDS: Thiamine (B-1) 100 MG TABLET PO SCH (14:05)
[2020-03-23] MEDS: Folic Acid 1 MG TABLET PO SCH (14:05)
[2020-03-23 14:16] LABS: Adenovirus Not Detected (Not Detect); Bordetella Pertussis Not Detected (Not Detect); Chlamydophila pneumoniae Not Detected (Not Detect); Coronavirus 229E Not Detected (Not Detect); Coronavirus HKU1 Not Detected (Not Detect); Coronavirus NL63 Not Detected (Not Detect); Coronavirus OC43 Not Detected (Not Detect); Human Metapneumovirus Not Detected (Not Detect); Human Rhinovirus/Enterovirus Not Detected (Not Detect); Influenza A Subtype 2009 H1 Not Detected (Not Detect); Influenza B Not Detected (Not Detect); Mycoplasma pneumoniae Not Detected (Not Detect); Parainfluenza Virus 1 Not Detected (Not Detect); Parainfluenza Virus 2 Not Detected (Not Detect); Parainfluenza Virus 3 Not Detected (Not Detect); Parainfluenza Virus 4 Not Detected (Not Detect); Respiratory Syncytial Virus Not Detected (Not Detect); SARS-CoV-2 Not Detected (Not Detect)
[2020-03-23 14:27] LABS: Alanine Aminotransferase 23 Units/L (7-52); Albumin 3.3 g/dL (3.5-5.7); Albumin/Globulin Ratio 1.1 (1.1-2.2); Alkaline Phosphatase 102 Units/L (34-104); Aspartate Amino Transferase 45 Units/L (13-39); BUN/Creatinine Ratio 16 (6-26); Bilirubin,Direct 0.1 mg/dL (0.0-0.2); Bilirubin,Indirect 0.7 mg/dL (0.0-1.0); Bilirubin,Total 0.8 mg/dL (0.3-1.0); Blood Urea Nitrogen 7 mg/dL (6-20); Calcium 8.5 mg/dL (8.6-10.3); Carbon Dioxide 25 mEq/L (23-29); Chloride 91 mEq/L (98-107); Globulin 2.9 g/dL (2.4-3.5); Glucose 103 mg/dL (70-105); Magnesium 1.3 mg/dL (1.6-2.6); Osmolality,Calculated 266 (280-300); Phosphorous 3.4 mg/dL (2.7-4.5); Potassium 3.1 mEq/L (3.5-5.1); Sodium 129 mEq/L (136-145); Total Protein 6.2 g/dL (6.4-8.9); eGFR For African Americans > 60 (> 60); eGFR For Non-African Americans > 60 (> 60)
[2020-03-23] MEDS ORDERED: Magnesium Oxide 400 MG TABLET PO ONE (14:54)
[2020-03-23] MEDS ORDERED: *HR* LORazepam 2 MG/ML VIAL IVP PRN ×3 (15:40)
[2020-03-23] MEDS ORDERED: Naloxone 0.4 MG/ML INJ IVP PRN (15:45)
[2020-03-23] MEDS ORDERED: Ibuprofen 400 MG TABLET PO PRN (15:45)
[2020-03-23] MEDS ORDERED: Ondansetron 4 MG/2 ML VIAL IVP PRN (15:45)
[2020-03-23] MEDS ORDERED: *HR* Heparin 5,000 UNIT/ML VIAL SQ ONE (16:37)
[2020-03-23 16:47] LABS: Bilirubin,Urine Negative (Negative); Blood,Urine Negative (Negative); Clarity,Urine Clear (Clear); Color,Urine Light-Yellow (Yellow); Glucose,Urine (UA) Normal (Normal); Ketones,Urine Negative (Negative); Leukocyte Esterase,Urine Negative (Negative); Nitrite,Urine Negative (Negative); Protein,Urine Trace mg/dL (Neg-Trace); Specific Gravity,Urine 1.011 (1.010-1.025); Urobilinogen,Urine Normal (Normal)
[2020-03-23] MEDS: Nicotine 14 MG PATCH.TD24 TD SCH (18:44)
[2020-03-23] MEDS: MetroNIDAZOLE 500 MG/100 ML 500 MG/100 ML BAG IVPB SCH (18:46)
[2020-03-23] MEDS: Cefepime HCl 2,000 MG in 0.9 % Sodium Chloride Mini Bag 100 ML IVPB SCH (19:43)
[2020-03-23 21:43] LABS: Alanine Aminotransferase 22 Units/L (7-52); Alkaline Phosphatase 92 Units/L (34-104); Aspartate Amino Transferase 39 Units/L (13-39); BUN/Creatinine Ratio 16 (6-26); Bilirubin,Total 0.8 mg/dL (0.3-1.0); Blood Urea Nitrogen 8 mg/dL (6-20); Carbon Dioxide 23 mEq/L (23-29); Chloride 99 mEq/L (98-107); Globulin 2.9 g/dL (2.4-3.5); Glucose 86 mg/dL (70-105); Osmolality,Calculated 272 (280-300); Potassium 3.3 mEq/L (3.5-5.1); Sodium 132 mEq/L (136-145); Total Protein 5.9 g/dL (6.4-8.9); eGFR For African Americans > 60 (> 60); eGFR For Non-African Americans > 60 (> 60)
[2020-03-24] MEDS ORDERED: *HR* Heparin 5,000 UNIT/ML VIAL SQ ONE (00:30)
[2020-03-24] MEDS: MetroNIDAZOLE 500 MG/100 ML 500 MG/100 ML BAG IVPB SCH ×5 (03:29→23:58)
[2020-03-24] MEDS: Cefepime HCl 2,000 MG in 0.9 % Sodium Chloride Mini Bag 100 ML IVPB SCH ×3 (04:25→20:31)
[2020-03-24 05:57] LABS: Red Blood Count 2.67 M/mcL (3.82-4.97); Red Cell Distribution Width 13.9 % (11.5-14.5)
[2020-03-24 05:59] LABS: Hematocrit 28.4 % (35.3-44.9); Hemoglobin 9.6 g/dL (11.5-15.4); Immature Platelets 3.4 % (1.1-6.1); Mean Corpuscular HGB Conc 33.8 g/dL (31.6-35.5); Mean Corpuscular Volume 106.4 fL (83.0-100.0); Mean Platelet Volume 10.8 fL (9.4-12.4); White Blood Count 1.8 K/mcL (4.3-11.1)
[2020-03-24] MEDS: Folic Acid 1 MG TABLET PO SCH (08:28)
[2020-03-24] MEDS: Nicotine 14 MG PATCH.TD24 TD SCH (08:28)
[2020-03-24] MEDS: Vitamin B Complex/Vit C/Vit E 1 EACH TABLET PO SCH (08:28)
[2020-03-24 10:04] LABS: BUN/Creatinine Ratio 16 (6-26); Blood Urea Nitrogen 8 mg/dL (6-20); Calcium 7.8 mg/dL (8.6-10.3); Carbon Dioxide 21 mEq/L (23-29); Chloride 102 mEq/L (98-107); Chol/HDL Ratio 1.8 (0-4.9); Cholesterol 149 mg/dL (< 200); Glucose 91 mg/dL (70-105); HDL Cholesterol 81 mg/dL (40-59); LDL Cholesterol,Calculated 57 mg/dL (< 100); Magnesium 1.3 mg/dL (1.6-2.6); Osmolality,Calculated 274 (280-300); Phosphorous 2.5 mg/dL (2.7-4.5); Potassium 2.8 mEq/L (3.5-5.1); Sodium 133 mEq/L (136-145); Triglycerides 54 mg/dL (< 150); eGFR For African Americans > 60 (> 60); eGFR For Non-African Americans > 60 (> 60)
[2020-03-24] MEDS: Thiamine (B-1) 100 MG TABLET PO SCH (12:08)
[2020-03-24] MEDS: *HR* LORazepam 0.5 MG TABLET PO SCH (20:24)
[2020-03-24] MEDS: Gabapentin 300 MG CAPSULE PO SCH (20:28)
[2020-03-24] MEDS: *HR* Heparin 5,000 UNIT/ML VIAL SQ SCH (22:57)
[2020-03-25] MEDS: Cefepime HCl 2,000 MG in 0.9 % Sodium Chloride Mini Bag 100 ML IVPB SCH ×3 (04:48→21:15)
[2020-03-25] MEDS ORDERED: D5% in Water 1,000 ML IVC PRN (05:02)
[2020-03-25] MEDS ORDERED: Dextrose Gel 15 GM/37.5 ML TUBE PO PRN ×2 (05:02)
[2020-03-25] MEDS ORDERED: *HR* Dextrose 50 % in Water (Vial) 50 ML VIAL IVP PRN (05:02)
[2020-03-25 05:33] LABS: Immature Granulocytes % 0.5 % (0-4); Red Cell Distribution Width 14.3 % (11.5-14.5)
[2020-03-25 05:36] LABS: Basophils % 1.6 %; Eosinophils % 2.1 %; Hematocrit 30.9 % (35.3-44.9); Hemoglobin 9.9 g/dL (11.5-15.4); Immature Platelets 4.1 % (1.1-6.1); Lymphocytes # 0.8 K/mcL (0.6-4.6); Lymphocytes % 40.6 %; Mean Corpuscular Hemoglobin 35.1 pg (28.0-33.3); Mean Corpuscular Volume 109.6 fL (83.0-100.0); Mean Platelet Volume 10.4 fL (9.4-12.4); Monocytes # 0.2 K/mcL (0.0-1.3); Monocytes % 10.9 %; Red Blood Count 2.82 M/mcL (3.82-4.97); Segmented Neutrophils % 44.3 %; White Blood Count 1.9 K/mcL (4.3-11.1)
[2020-03-25 05:47] LABS: Neutrophils # 0.8 K/mcL (1.6-8.9); Platelet Count 79 K/mcL (140-400)
[2020-03-25 05:53] LABS: BUN/Creatinine Ratio 15 (6-26); Blood Urea Nitrogen 7 mg/dL (6-20); Calcium 7.7 mg/dL (8.6-10.3); Carbon Dioxide 19 mEq/L (23-29); Chloride 106 mEq/L (98-107); Glucose 68 mg/dL (70-105); Osmolality,Calculated 274 (280-300); Potassium 3.6 mEq/L (3.5-5.1); Sodium 134 mEq/L (136-145); eGFR For African Americans > 60 (> 60); eGFR For Non-African Americans > 60 (> 60)
[2020-03-25 06:19] LABS: Platelet Estimate Decreased (Normal)
[2020-03-25] MEDS: MetroNIDAZOLE 500 MG/100 ML 500 MG/100 ML BAG IVPB SCH ×4 (06:39→23:23)
[2020-03-25] MEDS: *HR* Heparin 5,000 UNIT/ML VIAL SQ SCH ×3 (06:39→21:12)
[2020-03-25] MEDS: Vitamin B Complex/Vit C/Vit E 1 EACH TABLET PO SCH (09:21)
[2020-03-25] MEDS: Thiamine (B-1) 100 MG TABLET PO SCH ×2 (09:21→09:22)
[2020-03-25] MEDS: Folic Acid 1 MG TABLET PO SCH ×2 (09:22→09:24)
[2020-03-25] MEDS: *HR* LORazepam 0.5 MG TABLET PO SCH ×3 (09:23→21:12)
[2020-03-25] MEDS: FLUoxetine 20 MG CAPSULE PO SCH (09:23)
[2020-03-25] MEDS: Gabapentin 300 MG CAPSULE PO SCH ×2 (09:23→21:12)
[2020-03-25] MEDS: Nicotine 14 MG PATCH.TD24 TD SCH ×2 (09:23→09:25)
[2020-03-25] MEDS: *HR* OxyCODONE Immed Rel 5 MG TABLET PO PRN (14:14)
[2020-03-26] MEDS: Cefepime HCl 2,000 MG in 0.9 % Sodium Chloride Mini Bag 100 ML IVPB SCH (05:10)
[2020-03-26] MEDS: *HR* Heparin 5,000 UNIT/ML VIAL SQ SCH (05:11)
[2020-03-26] MEDS: MetroNIDAZOLE 500 MG/100 ML 500 MG/100 ML BAG IVPB SCH (05:45)
[2020-03-26 06:37] LABS: Immature Granulocytes % 0.4 % (0-4)
[2020-03-26 06:39] LABS: Basophils % 1.5 %; Eosinophils # 0.1 K/mcL (0.0-0.6); Eosinophils % 1.9 %; Hematocrit 28.5 % (35.3-44.9); Immature Platelets 3.4 % (1.1-6.1); Lymphocytes # 0.9 K/mcL (0.6-4.6); Lymphocytes % 33.1 %; Mean Corpuscular HGB Conc 31.6 g/dL (31.6-35.5); Mean Corpuscular Hemoglobin 35.7 pg (28.0-33.3); Mean Corpuscular Volume 113.1 fL (83.0-100.0); Monocytes # 0.4 K/mcL (0.0-1.3); Monocytes % 12.8 %; Neutrophils # 1.4 K/mcL (1.6-8.9); Nucleated Red Blood Cells 0.8 /100 WBC (0); Platelet Count 65 K/mcL (140-400); Red Blood Count 2.52 M/mcL (3.82-4.97); Red Cell Distribution Width 14.6 % (11.5-14.5); Segmented Neutrophils % 50.3 %; White Blood Count 2.7 K/mcL (4.3-11.1)
[2020-03-26 06:59] LABS: BUN/Creatinine Ratio 12 (6-26); Blood Urea Nitrogen 7 mg/dL (6-20); Calcium 7.5 mg/dL (8.6-10.3); Carbon Dioxide 17 mEq/L (23-29); Chloride 110 mEq/L (98-107); Glucose 78 mg/dL (70-105); Magnesium 1.5 mg/dL (1.6-2.6); Osmolality,Calculated 277 (280-300); Phosphorous 3.9 mg/dL (2.7-4.5); Potassium 2.8 mEq/L (3.5-5.1); Sodium 135 mEq/L (136-145); eGFR For African Americans > 60 (> 60); eGFR For Non-African Americans > 60 (> 60)
[2020-03-26 07:15] LABS: Anisocytosis 1+ (Not Present); Platelet Estimate Decreased (Normal)
[2020-03-26] MEDS: Gabapentin 300 MG CAPSULE PO SCH (09:00)
[2020-03-26] MEDS: Thiamine (B-1) 100 MG TABLET PO SCH (09:00)
[2020-03-26] MEDS: Vitamin B Complex/Vit C/Vit E 1 EACH TABLET PO SCH (09:00)
[2020-03-26] MEDS: *HR* LORazepam 0.5 MG TABLET PO SCH (09:00)
[2020-03-26] MEDS: FLUoxetine 20 MG CAPSULE PO SCH (09:00)
[2020-03-26] MEDS: Folic Acid 1 MG TABLET PO SCH ×2 (09:01)
[2020-03-26] MEDS: *HR* OxyCODONE Immed Rel 5 MG TABLET PO PRN (09:07)
[2020-03-26 15:41] VITALS: BP 82/59
[2020-04-21] MEDS ORDERED: Cyanocobalamin (B-12) 1,000 MCG/ML VIAL SQ SCH (09:00)
== END 2020-03-26 17:01 | disposition home or self-care (01) ==
LOC: 3ANU 10:13 → EMEROOARM 10:13 → SUATTDRO 15:23 → 3ANU 16:53
PROVIDERS: ADMIT Internal Medicine; ATTEND Pharmacist

== ENCOUNTER 2020-11-19 15:12 | Inpatient (IN) ==
[2020-11-19] MEDS ORDERED: 0.9 % Sodium Chloride 500 ML IVC STA (17:43)
[2020-11-19 18:40] LABS: Basophils % 0.8 %; Hematocrit 35.7 % (35.3-44.9); Hemoglobin 11.7 g/dL (11.5-15.4); Immature Granulocytes % 0.2 % (0-4); Lymphocytes # 1.5 K/mcL (0.6-4.6); Lymphocytes % 30.9 %; Mean Corpuscular HGB Conc 32.8 g/dL (31.6-35.5); Mean Corpuscular Hemoglobin 36.4 pg (28.0-33.3); Mean Corpuscular Volume 111.2 fL (83.0-100.0); Mean Platelet Volume 10.3 fL (9.4-12.4); Monocytes # 0.6 K/mcL (0.0-1.3); Monocytes % 12.6 %; Neutrophils # 2.7 K/mcL (1.6-8.9); Platelet Count 145 K/mcL (140-400); Red Blood Count 3.21 M/mcL (3.82-4.97); Red Cell Distribution Width 13.2 % (11.5-14.5); Segmented Neutrophils % 55.5 %; White Blood Count 4.9 K/mcL (4.3-11.1)
[2020-11-19 18:54] LABS: Alanine Aminotransferase 20 Units/L (7-52); Albumin 2.1 g/dL (3.5-5.7); Albumin/Globulin Ratio 0.7 (1.1-2.2); Alkaline Phosphatase 76 Units/L (34-104); Aspartate Amino Transferase 25 Units/L (13-39); BUN/Creatinine Ratio 19 (6-26); Bilirubin,Total 0.6 mg/dL (0.3-1.0); Blood Urea Nitrogen 14 mg/dL (6-20); Calcium 7.3 mg/dL (8.6-10.3); Carbon Dioxide 20 mEq/L (23-29); Chloride 107 mEq/L (98-107); Globulin 3.2 g/dL (2.4-3.5); Glucose 96 mg/dL (70-105); Osmolality,Calculated 286 (280-300); Potassium 3.1 mEq/L (3.5-5.1); Sodium 138 mEq/L (136-145); Total Protein 5.3 g/dL (6.4-8.9); Troponin I 0.19 ng/mL (< 0.04); eGFR For African Americans > 60 (> 60); eGFR For Non-African Americans > 60 (> 60)
[2020-11-19 19:07] LABS: Thyroid Stimulating Hormone 7.959 mcIU/mL (0.340-5.600)
[2020-11-19 19:25] LABS: Macrocytosis Present (Not Present)
[2020-11-19 20:35] LABS: Bacteria,Urine Many per hpf (None-Few); Bilirubin,Urine Negative (Negative); Blood,Urine Small (Negative); Clarity,Urine Turbid (Clear); Color,Urine Yellow (Yellow); Glucose,Urine (UA) Normal (Normal); Hyaline Casts,Urine Moderate per lpf (None Seen); Ketones,Urine Trace mg/dL (Negative); Leukocyte Esterase,Urine Moderate (Negative); Mucus,Urine Few per lpf (None-Few); Nitrite,Urine Negative (Negative); PH,Urine 5.5 pH Units (5.0-8.0); Protein,Urine Trace mg/dL (Neg-Trace); RBC,Urine 0-3 per hpf (0-3); Specific Gravity,Urine 1.016 (1.010-1.025); Squamous Epithelial Cell,Urine Few per hpf (None-Few); WBC,Urine 15-30 per hpf (0-3)
[2020-11-19] MEDS ORDERED: MetroNIDAZOLE 500 MG/100 ML 500 MG/100 ML BAG IVPB ONE (20:51)
[2020-11-19] MEDS ORDERED: Gadolinium Contrast Agent (WT Based) IV PRN (21:00)
[2020-11-19] MEDS ORDERED: 0.9 % Sodium Chloride 1,000 ML IVC SCH (22:45)
[2020-11-19] MEDS ORDERED: Naloxone 0.4 MG/ML INJ IVP PRN (22:45)
[2020-11-19] MEDS: Nicotine 14 MG PATCH.TD24 TD SCH (23:25)
[2020-11-19] MEDS ORDERED: Potassium Chloride Elixir 20 MEQ/15 ML UDC PO ONE (23:26)
[2020-11-20] MEDS ORDERED: MetroNIDAZOLE 500 MG/100 ML 500 MG/100 ML BAG IVPB SCH
[2020-11-20] MEDS ORDERED: Cyanocobalamin (B-12) 1,000 MCG/ML VIAL SQ SCH (00:15)
[2020-11-20 01:59] LABS: Folate 8.7 ng/mL (3.0-16.0); Vitamin B12 > 1500 pg/mL (250-1100)
[2020-11-20 02:06] LABS: BUN/Creatinine Ratio 21 (6-26); Blood Urea Nitrogen 14 mg/dL (6-20); C-Reactive Protein 13 mg/L (Less than 10); Calcium 6.8 mg/dL (8.6-10.3); Carbon Dioxide 16 mEq/L (23-29); Chloride 111 mEq/L (98-107); Glucose 85 mg/dL (70-105); Osmolality,Calculated 288 (280-300); Potassium 3.1 mEq/L (3.5-5.1); Sodium 139 mEq/L (136-145); eGFR For African Americans > 60 (> 60); eGFR For Non-African Americans > 60 (> 60)
[2020-11-20] MEDS ORDERED: Albumin 25% 25gram/100mL 25 GM/100 ML IV.SOLN IVPB ONE (05:37)
[2020-11-20 06:18] LABS: Hematocrit 31.2 % (35.3-44.9); Hemoglobin 10.5 g/dL (11.5-15.4); Mean Corpuscular HGB Conc 33.7 g/dL (31.6-35.5); Mean Corpuscular Hemoglobin 37.5 pg (28.0-33.3); Mean Corpuscular Volume 111.4 fL (83.0-100.0); Mean Platelet Volume 9.7 fL (9.4-12.4); Platelet Count 126 K/mcL (140-400); Red Cell Distribution Width 13.3 % (11.5-14.5); White Blood Count 3.1 K/mcL (4.3-11.1)
[2020-11-20] MEDS ORDERED: Potassium Chloride 40 MEQ, Lidocaine 1% 2 ML in 0.9 % Sodium Chloride 500 ML IVPB ONE (07:40)
[2020-11-20] MEDS ORDERED: Perflutren Lipid Microsphere 1.3 ML in 0.9 % Sodium Chloride 8.7 ML IVP PRN (09:55)
[2020-11-20] MEDS: Folic Acid 1 MG TABLET PO SCH (10:57)
[2020-11-20] MEDS: Aspirin 81 MG TAB.CHEW PO SCH (10:59)
[2020-11-20] MEDS ORDERED: Acetaminophen 325 MG TABLET PO PRN (11:44)
[2020-11-20] MEDS: MetroNIDAZOLE 500 MG/100 ML 500 MG/100 ML BAG IVPB SCH ×2 (12:13→18:59)
[2020-11-20] MEDS: *HR* Heparin 5,000 UNIT/ML VIAL SQ SCH (23:24)
[2020-11-20] MEDS: Nicotine 14 MG PATCH.TD24 TD SCH (23:24)
[2020-11-21] MEDS ORDERED: 0.9 % Sodium Chloride 1,000 ML IVC SCH (01:15)
[2020-11-21] MEDS: MetroNIDAZOLE 500 MG/100 ML 500 MG/100 ML BAG IVPB SCH ×3 (03:08→16:37)
[2020-11-21 03:25] LABS: Hematocrit 28.1 % (35.3-44.9); Mean Corpuscular Volume 115.6 fL (83.0-100.0); Mean Platelet Volume 9.5 fL (9.4-12.4); Platelet Count 107 K/mcL (140-400); Red Blood Count 2.43 M/mcL (3.82-4.97); Red Cell Distribution Width 13.7 % (11.5-14.5); White Blood Count 2.7 K/mcL (4.3-11.1)
[2020-11-21 04:08] LABS: BUN/Creatinine Ratio 17 (6-26); Blood Urea Nitrogen 11 mg/dL (6-20); Calcium 6.6 mg/dL (8.6-10.3); Carbon Dioxide 20 mEq/L (23-29); Chloride 114 mEq/L (98-107); Glucose 75 mg/dL (70-105); Osmolality,Calculated 286 (280-300); Potassium 4.2 mEq/L (3.5-5.1); Sodium 139 mEq/L (136-145); eGFR For African Americans > 60 (> 60); eGFR For Non-African Americans > 60 (> 60)
[2020-11-21] MEDS: *HR* Heparin 5,000 UNIT/ML VIAL SQ SCH ×2 (06:23→13:15)
[2020-11-21] MEDS ORDERED: Calcium Gluconate 1gm/50mL 1 GM/50 ML BAG IVPB ONE (07:43)
[2020-11-21] MEDS: Folic Acid 1 MG TABLET PO SCH (08:00)
[2020-11-21] MEDS: Aspirin 81 MG TAB.CHEW PO SCH (08:00)
[2020-11-21 08:17] LABS: Magnesium 1.1 mg/dL (1.6-2.6)
[2020-11-21 09:33] LABS: INR 1.2; Prothrombin Time 13.4 Seconds (9.4-12.1)
[2020-11-21] MEDS: Furosemide 20 MG TABLET PO SCH (12:14)
[2020-11-21] MEDS ORDERED: Acetaminophen 325 MG TABLET PO PRN (14:59)
[2020-11-22] MEDS: Nicotine 14 MG PATCH.TD24 TD SCH (00:29)
[2020-11-22] MEDS: MetroNIDAZOLE 500 MG/100 ML 500 MG/100 ML BAG IVPB SCH ×4 (02:03→12:27)
[2020-11-22 05:32] LABS: BUN/Creatinine Ratio 15 (6-26); Blood Urea Nitrogen 9 mg/dL (6-20); Calcium 6.8 mg/dL (8.6-10.3); Carbon Dioxide 18 mEq/L (23-29); Chloride 115 mEq/L (98-107); Glucose 82 mg/dL (70-105); Osmolality,Calculated 286 (280-300); Potassium 3.4 mEq/L (3.5-5.1); Sodium 139 mEq/L (136-145); eGFR For African Americans > 60 (> 60); eGFR For Non-African Americans > 60 (> 60)
[2020-11-22 05:39] LABS: Hematocrit 27.8 % (35.3-44.9); Hemoglobin 9.1 g/dL (11.5-15.4); Mean Corpuscular HGB Conc 32.7 g/dL (31.6-35.5); Mean Corpuscular Hemoglobin 37.3 pg (28.0-33.3); Mean Corpuscular Volume 113.9 fL (83.0-100.0); Platelet Count 111 K/mcL (140-400); Red Blood Count 2.44 M/mcL (3.82-4.97); Red Cell Distribution Width 13.8 % (11.5-14.5); White Blood Count 2.4 K/mcL (4.3-11.1)
[2020-11-22 07:54] LABS: Magnesium 1.2 mg/dL (1.6-2.6)
[2020-11-22] MEDS ORDERED: Potassium Chloride Elixir 20 MEQ/15 ML UDC PO ONE (08:37)
[2020-11-22] MEDS: Aspirin 81 MG TAB.CHEW PO SCH (09:21)
[2020-11-22] MEDS: Furosemide 20 MG TABLET PO SCH (09:21)
[2020-11-22] MEDS: Folic Acid 1 MG TABLET PO SCH (09:21)
[2020-11-22] MEDS: Calcium Gluconate 1gm/50mL 1 GM/50 ML BAG IVPB SCH ×2 (09:22→11:06)
[2020-11-22 11:05] VITALS: BP 123/94; PULSE 84; TEMP 98.2; O2SAT 97
[2020-11-22 17:54] LABS: RBC,Peritoneal Fluid < 2000 RBC/mcL
[2020-11-22 18:24] LABS: LDH,Peritoneal Fluid < 25 Units/L (No Ref Range); Total Protein,Peritoneal Fluid < 2.0 g/dL
[2020-11-22 19:25] LABS: Appearance of Peritoneal Fl CLEAR (Clear)
[2020-11-22 19:36] LABS: Basophils,Peritoneal Fluid 0 %; Eosinophils,Peritoneal Fluid 0 %
[2020-11-25 01:56] LABS: Fluid Source for Albumin PERITONEAL FL
== END 2020-11-22 14:58 | disposition home health service (06) | DRG 552 ==
LOC: 2NENU 15:12 → EMEROOARM 15:12 → SUATTDRO 21:44 → 2NENU 22:43
PROVIDERS: ADMIT Student in an Organized Health Care Education/Training Program; ATTEND Internal Medicine

== ENCOUNTER 2021-01-26 15:00 | Inpatient (IN) ==
[2021-01-26] MEDS ORDERED: 0.9 % Sodium Chloride 1,000 ML IVC ONE (16:07)
[2021-01-26 16:15] LABS: Bacteria,Urine Few per hpf (None-Few); Bilirubin,Urine Small (Negative); Blood,Urine Negative (Negative); Budding Yeast,Urine Many per hpf (None Seen); Clarity,Urine Turbid (Clear); Color,Urine Yellow (Yellow); Glucose,Urine (UA) Normal (Normal); Hyaline Casts,Urine Many per lpf (None Seen); Ketones,Urine 10 mg/dL (Negative); Leukocyte Esterase,Urine Large (Negative); Mucus,Urine Few per lpf (None-Few); Nitrite,Urine Negative (Negative); Protein,Urine 30 mg/dL (Neg-Trace); RBC,Urine TNTC per hpf (0-3); Specific Gravity,Urine 1.024 (1.010-1.025); Squamous Epithelial Cell,Urine Few per hpf (None-Few); WBC,Urine TNTC per hpf (0-3)
[2021-01-26 16:49] LABS: Influenza A PCR Negative (Negative); Influenza B PCR Negative (Negative); Resp. Syncytial Virus PCR Negative (Negative)
[2021-01-26 16:52] LABS: SARS-CoV-2 by PCR (In House) Negative (Negative)
[2021-01-26 17:28] LABS: Basophils % 0.3 %; Hematocrit 33.9 % (35.3-44.9); Hemoglobin 10.7 g/dL (11.5-15.4); Immature Granulocytes % 0.3 % (0-4); Lymphocytes % 33.6 %; Mean Corpuscular HGB Conc 31.6 g/dL (31.6-35.5); Mean Corpuscular Volume 117.3 fL (83.0-100.0); Mean Platelet Volume 10.1 fL (9.4-12.4); Monocytes # 0.3 K/mcL (0.0-1.3); Monocytes % 8.7 %; Neutrophils # 1.7 K/mcL (1.6-8.9); Platelet Count 124 K/mcL (140-400); Red Blood Count 2.89 M/mcL (3.82-4.97); Red Cell Distribution Width 17.1 % (11.5-14.5); Segmented Neutrophils % 57.1 %; White Blood Count 2.9 K/mcL (4.3-11.1)
[2021-01-26] MEDS ORDERED: levoFLOXacin 500 MG/100 ML 500 MG/100 ML BAG IVPB ONE (17:39)
[2021-01-26 17:43] LABS: Anisocytosis 1+ (Not Present); Platelet Estimate Normal (Normal)
[2021-01-26 17:44] LABS: Macrocytosis Present (Not Present)
[2021-01-26 17:51] LABS: INR 1.1; Prothrombin Time 12.4 Seconds (9.4-12.1)
[2021-01-26] MEDS ORDERED: Lactulose Oral Soln 20 GM/30 ML UDC PO ONE (17:52)
[2021-01-26 17:55] LABS: Albumin 1.8 g/dL (3.5-5.7); Albumin/Globulin Ratio 0.5 (1.1-2.2); Bilirubin,Total 0.7 mg/dL (0.3-1.0); Calcium 7.6 mg/dL (8.6-10.3); Globulin 3.5 g/dL (2.4-3.5); Magnesium 1.5 mg/dL (1.6-2.6); Potassium 4.6 mEq/L (3.5-5.1); Total Protein 5.3 g/dL (6.4-8.9)
[2021-01-26] MEDS ORDERED: *HR* LORazepam 2 MG/ML VIAL IVP PRN ×2 (20:27)
[2021-01-26] MEDS ORDERED: Ondansetron 4 MG/2 ML VIAL IVP PRN (20:34)
[2021-01-26] MEDS ORDERED: Naloxone 0.4 MG/ML INJ IVP PRN (20:34)
[2021-01-26] MEDS ORDERED: Albumin 25% 25gram/100mL 25 GM/100 ML IV.SOLN IVPB ONE (21:58)
[2021-01-27] MEDS: Albumin 25% 25gram/100mL 25 GM/100 ML IV.SOLN IVPB ONE ×2 (01:40)
[2021-01-27] MEDS: Magnesium Oxide 400 MG TABLET PO SCH ×3 (04:39→22:13)
[2021-01-27] MEDS: Fluconazole 200 MG/100 ML 200 MG/100 ML BAG IVPB SCH (04:54)
[2021-01-27] MEDS: 0.9 % Sodium Chloride 1,000 ML IVC SCH ×2 (05:11→16:29)
[2021-01-27] MEDS ORDERED: Dextrose Gel 15 GM/37.5 ML TUBE PO PRN ×2 (05:34)
[2021-01-27] MEDS ORDERED: D5% in Water 1,000 ML IVC PRN (05:34)
[2021-01-27] MEDS: *HR* Dextrose 50 % in Water (Syg) 50 ML SYRINGE IVP PRN ×2 (05:47→12:32)
[2021-01-27 05:57] LABS: Acinetobacter baumannii by PCR Not Detected (Not Detect); Candida albicans by PCR Not Detected (Not Detect); Candida glabrata by PCR Not Detected (Not Detect); Candida krusei by PCR Not Detected (Not Detect); Candida parapsilosis by PCR Not Detected (Not Detect); Candida tropicalis by PCR Not Detected (Not Detect); Enterobacter cloacae Cmplx PCR Not Detected (Not Detect); Enterobacteriaceae by PCR Not Detected (Not Detect); Enterococcus by PCR Not Detected (Not Detect); Escherichia coli by PCR Not Detected (Not Detect); Klebsiella oxytoca by PCR Not Detected (Not Detect); Klebsiella pneumoniae by PCR Not Detected (Not Detect); Proteus by PCR Not Detected (Not Detect); Pseudomonas aeruginosa by PCR Not Detected (Not Detect); Serratia marcescens by PCR Not Detected (Not Detect); Staphylococcus aureus by PCR Not Detected (Not Detect); Staphylococcus by PCR Not Detected (Not Detect); Streptococcus agalactiae(B)PCR Not Detected (Not Detect); Streptococcus by PCR Not Detected (Not Detect); Streptococcus pneumoniae PCR Not Detected (Not Detect); Streptococcus pyogenes (A) PCR Not Detected (Not Detect); mecA Methicillin-Resist Gene Not Detected (Not Detect); vanA/B Vancomycin-Resist Genes Not Detected (Not Detect)
[2021-01-27] MEDS ORDERED: Famotidine 20 MG/2 ML VIAL IVP SCH (06:00)
[2021-01-27 06:25] LABS: Amylase < 10 Units/L (29-103); Ethanol < 10 mg/dL (Less than 10); Lipase < 3 Units/L (11-82)
[2021-01-27 06:27] LABS: Calcium 7.5 mg/dL (8.6-10.3); Iron 43 mcg/dL (50-170); Potassium 3.4 mEq/L (3.5-5.1)
[2021-01-27 06:43] LABS: Ferritin 217 ng/mL (10-120)
[2021-01-27 06:49] LABS: Folate 19.3 ng/mL (3.0-16.0)
[2021-01-27 06:54] LABS: Vitamin B12 > 1500 pg/mL (250-1100)
[2021-01-27 07:05] LABS: Hematocrit 20.6 % (35.3-44.9); Hemoglobin 6.5 g/dL (11.5-15.4); Immature Platelets 1.2 % (1.1-6.1); Mean Corpuscular HGB Conc 31.6 g/dL (31.6-35.5); Mean Corpuscular Hemoglobin 36.9 pg (28.0-33.3); Mean Platelet Volume 9.6 fL (9.4-12.4); Red Blood Count 1.76 M/mcL (3.82-4.97); Red Cell Distribution Width 16.8 % (11.5-14.5); White Blood Count 2.1 K/mcL (4.3-11.1)
[2021-01-27] MEDS: cefTRIAXone 1,000 MG in 0.9 % Sodium Chloride Mini Bag 100 ML IVPB SCH ×2 (08:45→18:33)
[2021-01-27] MEDS: Vitamin B Complex/Vit C/Vit E 1 EACH TABLET PO SCH (08:47)
[2021-01-27 09:24] LABS: Vitamin D 25 Hydroxy 20 ng/mL (30-80)
[2021-01-27] MEDS: Pantoprazole 40 MG VIAL IVP SCH ×2 (10:12→18:33)
[2021-01-27] MEDS: Azithromycin 500 MG in 0.9 % Sodium Chloride 250 ML IVPB SCH (10:12)
[2021-01-27] MEDS ORDERED: 0.9 % Sodium Chloride 250 ML ONE (12:55)
[2021-01-27] MEDS: Octreotide 400 MCG in 0.9 % Sodium Chloride 100 ML IVC SCH (16:28)
[2021-01-27 18:58] LABS: Hematocrit 28.6 % (35.3-44.9)
[2021-01-27 18:59] LABS: Hemoglobin 9.1 g/dL (11.5-15.4)
[2021-01-28] MEDS: Fluconazole 200 MG/100 ML 200 MG/100 ML BAG IVPB SCH (01:48)
[2021-01-28] MEDS: 0.9 % Sodium Chloride 1,000 ML IVC SCH ×2 (01:49→16:04)
[2021-01-28] MEDS: cefTRIAXone 1,000 MG in 0.9 % Sodium Chloride Mini Bag 100 ML IVPB SCH (05:48)
[2021-01-28] MEDS: Pantoprazole 40 MG VIAL IVP SCH (05:48)
[2021-01-28 08:00] LABS: Basophils % 0.8 %; Immature Granulocytes % 0.8 % (0-4)
[2021-01-28 08:02] LABS: Eosinophils % 0.8 %; Hematocrit 29.3 % (35.3-44.9); Hemoglobin 9.3 g/dL (11.5-15.4); Immature Platelets 1.1 % (1.1-6.1); Lymphocytes # 1.1 K/mcL (0.6-4.6); Lymphocytes % 43.8 %; Mean Corpuscular HGB Conc 31.7 g/dL (31.6-35.5); Mean Corpuscular Hemoglobin 36.6 pg (28.0-33.3); Mean Corpuscular Volume 115.4 fL (83.0-100.0); Mean Platelet Volume 10.1 fL (9.4-12.4); Monocytes # 0.3 K/mcL (0.0-1.3); Monocytes % 11.2 %; Neutrophils # 1.1 K/mcL (1.6-8.9); Platelet Count 109 K/mcL (140-400); Red Blood Count 2.54 M/mcL (3.82-4.97); Red Cell Distribution Width 21.6 % (11.5-14.5); Segmented Neutrophils % 42.6 %; White Blood Count 2.5 K/mcL (4.3-11.1)
[2021-01-28 08:11] LABS: Alanine Aminotransferase 16 Units/L (7-52); Albumin/Globulin Ratio 0.9 (1.1-2.2); Alkaline Phosphatase 60 Units/L (34-104); Aspartate Amino Transferase 36 Units/L (13-39); BUN/Creatinine Ratio 12 (6-26); Bilirubin,Total 0.5 mg/dL (0.3-1.0); Blood Urea Nitrogen 11 mg/dL (6-20); Carbon Dioxide 15 mEq/L (23-29); Chloride 114 mEq/L (98-107); Globulin 2.2 g/dL (2.4-3.5); Glucose 90 mg/dL (70-105); Osmolality,Calculated 295 (280-300); Potassium 3.1 mEq/L (3.5-5.1); Sodium 143 mEq/L (136-145); Total Protein 4.2 g/dL (6.4-8.9); eGFR For African Americans > 60 (> 60); eGFR For Non-African Americans > 60 (> 60)
[2021-01-28 08:33] LABS: Macrocytosis Present (Not Present); Tear Drop Cells 1+ (Not Present)
[2021-01-28 08:34] LABS: Platelet Estimate Normal (Normal)
[2021-01-28 10:39] LABS: Estimated Average Glucose 59 mg/dl; Hemoglobin A1C 3.7 %
[2021-01-28] MEDS ORDERED: Potassium Chloride Elixir 20 MEQ/15 ML UDC PO ONE (11:17)
[2021-01-28] MEDS ORDERED: Lactulose Oral Soln 20 GM/30 ML UDC PO ONE (12:11)
[2021-01-28] MEDS: Vitamin B Complex/Vit C/Vit E 1 EACH TABLET PO SCH (12:25)
[2021-01-28] MEDS: Azithromycin 500 MG in 0.9 % Sodium Chloride 250 ML IVPB SCH (12:26)
[2021-01-28] MEDS: Magnesium Oxide 400 MG TABLET PO SCH (12:26)
[2021-01-28] MEDS ORDERED: *HR* Propofol 200 MG/20 ML VIAL IVP ONE (13:18)
[2021-01-28] MEDS ORDERED: Lidocaine -MPF 2% 5 ML VIAL ONE (13:22)
[2021-01-28] MEDS ORDERED: *HR* LORazepam 2 MG/ML VIAL IVP PRN (14:37)
[2021-01-28] MEDS: Albumin 25% 25gram/100mL 25 GM/100 ML IV.SOLN IVPB SCH (16:05)
[2021-01-28] MEDS ORDERED: Acetaminophen IV 500 MG/50 ML BAG IVPB ONE (19:45)
[2021-01-29] MEDS: Fluconazole 200 MG/100 ML 200 MG/100 ML BAG IVPB SCH (00:08)
[2021-01-29] MEDS: Albumin 25% 25gram/100mL 25 GM/100 ML IV.SOLN IVPB SCH ×3 (00:08→15:31)
[2021-01-29] MEDS: cefTRIAXone 1,000 MG in 0.9 % Sodium Chloride Mini Bag 100 ML IVPB SCH (05:16)
[2021-01-29] MEDS ORDERED: Potassium Chloride Elixir 20 MEQ/15 ML UDC PO ONE (08:35)
[2021-01-29] MEDS: Vitamin B Complex/Vit C/Vit E 1 EACH TABLET PO SCH (09:59)
[2021-01-29] MEDS ORDERED: Gadolinium Contrast Agent (WT Based) IV PRN (11:15)
[2021-01-29] MEDS ORDERED: methocarbamoL 750 MG TABLET PO PRN (11:52)
[2021-01-29] MEDS ORDERED: *HR* Acetaminophen w/Cod 300-30 mg 1 TAB TABLET PO PRN (11:52)
[2021-01-29] MEDS: Folic Acid 1 MG TABLET PO SCH (12:21)
[2021-01-29 13:34] LABS: Hemoglobin 9.5 g/dL (11.5-15.4); Mean Platelet Volume 9.5 fL (9.4-12.4); Monocytes % 12.6 %
[2021-01-29 13:35] LABS: Basophils # 0.1 K/mcL (0.0-0.2); Basophils % 1.7 %; Hematocrit 31.3 % (35.3-44.9); Immature Granulocytes % 0.7 % (0-4); Immature Platelets 0.9 % (1.1-6.1); Lymphocytes # 1.2 K/mcL (0.6-4.6); Lymphocytes % 41.6 %; Mean Corpuscular HGB Conc 30.4 g/dL (31.6-35.5); Mean Corpuscular Hemoglobin 36.1 pg (28.0-33.3); Monocytes # 0.4 K/mcL (0.0-1.3); Neutrophils # 1.2 K/mcL (1.6-8.9); Red Blood Count 2.63 M/mcL (3.82-4.97); Red Cell Distribution Width 20.6 % (11.5-14.5); Segmented Neutrophils % 42.4 %; White Blood Count 2.9 K/mcL (4.3-11.1)
[2021-01-29 13:49] LABS: BUN/Creatinine Ratio 11 (6-26); Blood Urea Nitrogen 9 mg/dL (6-20); Calcium 7.5 mg/dL (8.6-10.3); Carbon Dioxide 15 mEq/L (23-29); Chloride 114 mEq/L (98-107); Glucose 81 mg/dL (70-105); Osmolality,Calculated 296 (280-300); Potassium 3.2 mEq/L (3.5-5.1); Sodium 144 mEq/L (136-145); eGFR For African Americans > 60 (> 60); eGFR For Non-African Americans > 60 (> 60)
[2021-01-29 14:41] LABS: Platelet Count 96 K/mcL (140-400)
[2021-01-29 14:46] LABS: Platelet Estimate Decreased (Normal)
[2021-01-29 14:48] LABS: Macrocytosis Present (Not Present)
[2021-01-29] MEDS: Azithromycin 500 MG in 0.9 % Sodium Chloride 250 ML IVPB SCH (15:28)
[2021-01-29] MEDS: Lactulose Oral Soln 20 GM/30 ML UDC PO SCH ×2 (17:49→22:38)
[2021-01-29] MEDS ORDERED: Lactulose Oral Soln 20 GM/30 ML UDC PO SCH (21:00)
[2021-01-29 22:31] LABS: Alanine Aminotransferase 13 Units/L (7-52); Albumin 2.3 g/dL (3.5-5.7); Albumin/Globulin Ratio 1.1 (1.1-2.2); Alkaline Phosphatase 48 Units/L (34-104); Aspartate Amino Transferase 32 Units/L (13-39); BUN/Creatinine Ratio 12 (6-26); Bilirubin,Total 0.5 mg/dL (0.3-1.0); Blood Urea Nitrogen 9 mg/dL (6-20); Calcium 7.6 mg/dL (8.6-10.3); Carbon Dioxide 13 mEq/L (23-29); Chloride 116 mEq/L (98-107); Globulin 2.1 g/dL (2.4-3.5); Glucose 106 mg/dL (70-105); Osmolality,Calculated 297 (280-300); Potassium 4.2 mEq/L (3.5-5.1); Sodium 144 mEq/L (136-145); Total Protein 4.4 g/dL (6.4-8.9); eGFR For African Americans > 60 (> 60); eGFR For Non-African Americans > 60 (> 60)
[2021-01-29] MEDS ORDERED: Lactulose 200 GM, Sodium Chloride IRRigation 700 ML RC ONE (23:07)
[2021-01-30] MEDS ORDERED: 0.9 % Sodium Chloride 250 ML ONE (00:10)
[2021-01-30 03:59] LABS: Transferrin < 75 mg/dL (203-362)
[2021-01-30 06:17] LABS: BUN/Creatinine Ratio 13 (6-26); Blood Urea Nitrogen 10 mg/dL (6-20); Calcium 7.6 mg/dL (8.6-10.3); Carbon Dioxide 12 mEq/L (23-29); Chloride 118 mEq/L (98-107); Glucose 90 mg/dL (70-105); Osmolality,Calculated 303 (280-300); Potassium 4.1 mEq/L (3.5-5.1); Sodium 147 mEq/L (136-145); eGFR For African Americans > 60 (> 60); eGFR For Non-African Americans > 60 (> 60)
[2021-01-30] MEDS: cefTRIAXone 1,000 MG in 0.9 % Sodium Chloride Mini Bag 100 ML IVPB SCH (07:10)
[2021-01-30] MEDS: Lactulose Oral Soln 20 GM/30 ML UDC PO SCH ×2 (07:14→11:36)
[2021-01-30] MEDS ORDERED: Sodium Bicarbonate 150 MEQ in D5% in Water 1,000 ML IVC SCH (08:45)
[2021-01-30] MEDS: Vitamin B Complex/Vit C/Vit E 1 EACH TABLET PO SCH (10:15)
[2021-01-30] MEDS: Potassium Chloride Elixir 20 MEQ/15 ML UDC PO SCH ×2 (10:17→11:42)
[2021-01-30] MEDS: Docusate Oral Soln 100 MG/10 ML UDC PO SCH ×2 (10:17→11:41)
[2021-01-30] MEDS: Folic Acid 1 MG TABLET PO SCH ×2 (10:18→11:41)
[2021-01-30] MEDS: Albumin 25% 25gram/100mL 25 GM/100 ML IV.SOLN IVPB SCH (11:36)
[2021-01-30] MEDS: Azithromycin 500 MG in 0.9 % Sodium Chloride 250 ML IVPB SCH (11:37)
[2021-01-30] MEDS ORDERED: *HR* LORazepam 2 MG/ML VIAL IVP PRN (11:56)
[2021-01-30] MEDS ORDERED: Haloperidol Oral Conc 10 MG/5 ML UDC PO PRN (11:57)
[2021-01-30] MEDS ORDERED: Atropine 1% Opth Drops 100 DROP/5 ML BOTTLE SL PRN (13:14)
[2021-01-30] MEDS: *HR* LORazepam Oral Conc 2 MG/ML SL PRN ×2 (14:05→16:07)
[2021-01-30] MEDS: Morphine Sulfate Oral CONC 10 MG/0.5 ML ORAL.SYG SL PRN ×2 (14:06→15:53)
[2021-01-30] MEDS: 0.9 % Sodium Chloride 1,000 ML IVC SCH (21:12)
[2021-01-30] MEDS: Octreotide 400 MCG in 0.9 % Sodium Chloride 100 ML IVC SCH (21:22)
[2021-01-31] MEDS: Morphine Sulfate Oral CONC 10 MG/0.5 ML ORAL.SYG SL PRN ×3 (09:13→23:25)
[2021-01-31] MEDS ORDERED: Morphine Sulfate Oral CONC 10 MG/0.5 ML ORAL.SYG SL PRN (15:48)
[2021-01-31 18:55] VITALS: O2SAT 93
[2021-02-01 07:09] VITALS: BP 95/71; PULSE 56; TEMP 97.1
== END 2021-02-01 14:01 | disposition hospice, inpatient (51) | DRG 757 ==
LOC: EMEROOARM 15:00 → 3ANU 15:00 → 2ANU 01-30 13:33
PROVIDERS: ADMIT Internal Medicine; ATTEND Internal Medicine

== ENCOUNTER 2021-02-01 10:02 | Inpatient (IN) ==
[2021-02-01] MEDS ORDERED: Acetaminophen 650 MG RECTAL SUPP RC PRN (10:34)
[2021-02-01] MEDS ORDERED: *HR* LORazepam Oral Conc 2 MG/ML SL PRN (10:36)
[2021-02-01] MEDS ORDERED: Morphine Sulfate Oral CONC 10 MG/0.5 ML ORAL.SYG SL PRN (10:37)
[2021-02-01] MEDS ORDERED: Haloperidol Oral Conc 10 MG/5 ML UDC PO PRN (10:38)
[2021-02-01] MEDS ORDERED: Scopolamine Patch 1.5 MG PATCH.TD72 TD SCH (10:45)
[2021-02-01] MEDS: Morphine Sulfate Oral CONC 10 MG/0.5 ML ORAL.SYG SL SCH ×4 (14:15→23:49)
[2021-02-01] MEDS: Atropine 1% Opth Drops 100 DROP/5 ML BOTTLE SL PRN (17:30)
[2021-02-01 19:10] VITALS: BP 90/69; PULSE 64; O2SAT 89
[2021-02-02] MEDS: Morphine Sulfate Oral CONC 10 MG/0.5 ML ORAL.SYG SL SCH ×6 (04:23→23:52)
[2021-02-02] MEDS: Atropine 1% Opth Drops 100 DROP/5 ML BOTTLE SL PRN ×2 (13:09→23:53)
== END 2021-02-03 03:12 | disposition expired | DRG 951 ==
LOC: 2ANU 14:02
PROVIDERS: ADMIT Internal Medicine Hospice and Palliative Medicine; ATTEND Internal Medicine Hospice and Palliative Medicine